=== PATIENT | female | born 1945 | race African-American/Black ===

== ENCOUNTER 2017-04-08 16:52 | Inpatient (IN) | payer MEDICARE, OTHER ==
--- NOTE | 2017-04-08 18:27 | ER Document Report ---
ED General - General Chief Complaint: Fall Stated Complaint: CRAMPING IN HANDS AND LEGS Time Seen by Provider: 04/08/17 18:05 Notes: 71-year-old lady with alcoholism and cirrhosis presents with a fall this morning when her legs gave out. This was acute. She did not hit her head or lose consciousness. She complains of cramping all over her body and cramping in her hands since this morning. She denies confusion but her sister says she has been more confused lately. Per nursing the patient drinks whiskey daily. TRAVEL OUTSIDE OF THE [place] IN LAST 30 DAYS: No - Related Data Allergies/Adverse Reactions: No Known Allergies Allergy (Verified 04/08/17 17:12) Past Medical History - Social History Smoking Status: Former Smoker Frequency of alcohol use: Heavy Drug Abuse: None Family History: None Patient has suicidal ideation: No Patient has homicidal ideation: No - Past Medical History Cardiac Medical History: Reports: Hx Hypertension Renal/ Medical History: Denies: Hx Peritoneal Dialysis GI Medical History: Reports: Hx Gastroesophageal Reflux Disease Past Surgical History: Reports: Hx Abdominal Surgery - partial stomach removal, Hx Cholecystectomy Review of Systems - Review of Systems Notes: REVIEW OF SYSTEMS GEN: Weakness ENT: Denies sore throat, nasal discharge, ear pain EYES: Denies blurry vision, eye pain, discharge CV: Denies chest pain, palpitations, edema RESP: Denies cough, shortness of breath, wheezing GI: Denies abdominal pain, nausea, vomiting, diarrhea MSK: Denies joint pain/swelling, edema, SKIN: Denies rash, skin lesions LYMPH: Denies swollen glands/lymph nodes NEURO: Confusion. Leg pain and hand cramping denies headache, focal weakness or numbness, dizziness PSYCH: Denies depression, suicidal or homicidal ideation PHYSICAL EXAMINATION General: Chronically ill-appearing. No acute distress, well-nourished Head: Atraumatic, normocephalic ENT: Mouth normal, oropharynx moist, no exudates or tonsillar enlargement Eyes: Conjunctiva normal, pupils equal, lids normal Neck: No JVD, supple, no guarding CVS: Normal rate, regular rhythm, no murmurs Resp: No resp distress, equal and normal breath sounds bilaterally GI: Mildly distended, soft, no tenderness to palpation, no rebound or guarding Ext: No deformities, no edema, normal range of motion in upper and lower ext Back: No CVA or midline TTP Skin: No rash, warm Lymphatic: No lymphadeopathy noted Neuro: Mild asterixis bilaterally. Awake, alert. Face symmetric. GCS 15. Physical Exam - Vital signs Vitals: Temp Pulse Resp BP Pulse Ox 99.2 F 97 20 90/58 L 100 04/08/17 17:06 04/08/17 17:06 04/08/17 17:06 04/08/17 17:06 04/08/17 17:06 Course - Re-evaluation Re-evalutation: 04/08/17 18:27 71-year-old lady with cirrhosis presents with mechanical fall from both legs giving out, generalized weakness confusion and muscle cramps. Differential diagnosis includes hypokalemia dehydration hyponatremia hepatic encephalopathy, less likely rhabdo. We will do full labs, hydrate, and reassess. 04/08/17 21:28 Labs were delayed. They show critical hypokalemia and hypomagnesemia and hypocalcemia. She will be hydrated, I will replete these 3 electrolytes. Patient's EKG does not show changes concerning for hyperkalemia but she will be maintained on a playground monitor. She was reassessed and is stable. She is hypotensive and I think this is her baseline. Her pressure on reassessment at approximately 10:20 PM is 124/74. She was discussed with hospitalist Dr. Cowart. Admit to obs telemetry. 04/08/17 22:21 04/08/17 22:21 - Vital Signs Vital signs: Temp Pulse Resp BP Pulse Ox 99.2 F 97 18 117/65 98 04/08/17 17:06 04/08/17 17:06 04/08/17 21:01 04/08/17 21:01 04/08/17 21:01 - Laboratory Result Diagrams: 04/08/17 19:00 04/08/17 20:21 Laboratory results interpreted by me: 04/08/17 04/08/17 04/08/17 19:00 19:00 20:21 RBC 3.14 L Hgb 10.7 L Hct 30.3 L MCH 34.2 H RDW 15.5 H Sodium 133.6 L Potassium 2.2 L* Chloride 83 L Carbon Dioxide 37 H BUN 6 L Creatinine 0.49 L Calcium 5.6 L* Magnesium 1.1 L* Total Bilirubin 2.6 H Direct Bilirubin 1.6 H AST 337 H ALT 84 H Alkaline Phosphatase 138 H Creatine Kinase 642 H Total Protein 5.5 L Albumin 3.1 L - EKG Interpretation by Me EKG shows normal: Sinus rhythm Rate: Normal Rhythm: NSR When compared to previous EKG there are: Previous EKG unavailable Additional EKG results interpreted by me: 04/08/17 18:52 QT interval slightly prolonged Critical Care Note - Critical Care Note Total time excluding time spent on procedures (mins): 32 Comments: The above patient is critically ill. Not including procedures, but including direct re-evaluations, speaking with patient and/or consultants, interpreting results, and documenting, I spent the total amount of minute listed listed above on critical care time Discharge - Discharge Clinical Impression: Hypokalemia, Hypomagnesemia, Hypocalcemia Condition: Good Disposition: ADMITTED OBSERVATION Admitting Provider: Hospitalist Unit Admitted: Telemetry
--- NOTE | 2017-04-08 18:46 | RADIOLOGY REPORT (SQ) ---
EXAM DESCRIPTION: CHEST SINGLE VIEW COMPLETED DATE/TIME: 04/08/2017 6:38 pm REASON FOR STUDY: liver dz, weakness COMPARISON: None. EXAM PARAMETERS: NUMBER OF VIEWS: One view. TECHNIQUE: Single frontal radiographic view of the chest acquired. RADIATION DOSE: NA LIMITATIONS: None. FINDINGS: LUNGS AND PLEURA: No opacities, masses or pneumothorax. No pleural effusion. MEDIASTINUM AND HILAR STRUCTURES: No masses. Contour normal. HEART AND VASCULAR STRUCTURES: Heart normal in size. Normal vasculature. BONES: No acute findings. HARDWARE: None in the chest. OTHER: No other significant finding. IMPRESSION: NO ACUTE RADIOGRAPHIC FINDING IN THE CHEST. TECHNICAL DOCUMENTATION: JOB ID: [id number] [employer]- All Rights Reserved
[2017-04-08 19:33] LABS: ABSOLUTE LYMPHOCYTES (AUTO) 0.8 10^3/uL (0.5-4.7); ABSOLUTE MONOCYTES (AUTO) 0.5 10^3/uL (0.1-1.4); BASOPHILS % (AUTO) 0.3 % (0-2); EOSINOPHILS % (AUTO) 0.1 % (0-6); HEMATOCRIT 30.3 % (36.0-47.0); HEMOGLOBIN 10.7 g/dL (12.0-15.5); LYMPHOCYTES % (AUTO) 15.5 % (13-45); MEAN CORPUSCULAR HEMOGLOBIN 34.2 pg (27.0-33.4); MEAN CORPUSCULAR HGB CONC 35.4 g/dL (32.0-36.0); MEAN CORPUSCULAR VOLUME 97 fl (80-97); MONOCYTES % (AUTO) 10.1 % (3-13); PLATELET COUNT 223 10^3/uL (150-450); RED BLOOD COUNT 3.14 10^6/uL (3.72-5.28); RED CELL DISTRIBUTION WIDTH 15.5 % (11.5-14.0); TOTAL CELLS COUNTED % (AUTO) 100 %; WHITE BLOOD COUNT 5.4 10^3/uL (4.0-10.5)
[2017-04-08 20:58] LABS: ALANINE AMINOTRANSFERASE 84 U/L (9-52); ALBUMIN 3.1 g/dL (3.5-5.0); ALKALINE PHOSPHATASE 138 U/L (38-126); ANION GAP 14 (5-19); ASPARTATE AMINO TRANSFERASE 337 U/L (14-36); BILIRUBIN,DIRECT 1.6 mg/dL (0.0-0.4); BILIRUBIN,TOTAL 2.6 mg/dL (0.2-1.3); BLOOD UREA NITROGEN 6 mg/dL (7-20); CARBON DIOXIDE 37 mmol/L (22-30); CHLORIDE 83 mmol/L (98-107); GLUCOSE 77 mg/dL (75-110); SODIUM 133.6 mmol/L (137-145); TOTAL PROTEIN 5.5 g/dL (6.3-8.2)
[2017-04-08 21:13] LABS: CALCIUM 5.6 mg/dL (8.4-10.2); MAGNESIUM 1.1 mg/dL (1.6-2.3); POTASSIUM 2.2 mmol/L (3.6-5.0)
[2017-04-08] MEDS ORDERED: CALCIUM GLUCONATE 1000 MG/10 ML INJ IV ONE (21:19)
[2017-04-08] MEDS: POTASSI CL 20 MEQ/50 ML RIDER 20 MEQ/50 ML RTUPB IV SCH ×2 (21:30→23:18)
[2017-04-08] MEDS: MAGNESIUM SULFATE/D5W 1 GM/100 ML RTUPB IV SCH ×2 (21:55→22:59)
[2017-04-08] MEDS ORDERED: LORAZEPAM INJ 2 MG/1 ML VIAL IV PRN (22:42)
[2017-04-08] MEDS ORDERED: PROMETHAZINE HCL 25 MG TABLET PO PRN (22:50)
[2017-04-08] MEDS: DIAZEPAM 5 MG TABLET PO SCH (22:58)
[2017-04-08] MEDS ORDERED: FOLIC ACID 1 MG TABLET PO ONE (23:00)
[2017-04-08] MEDS ORDERED: LANSOPRAZOLE 15 MG TAB.RAP.DR PO ONE (23:15)
--- NOTE | 2017-04-08 23:39 | PDOC H&P ---
History of Present Illness Admission Date/PCP: 04/08/17 21:32 BILLY HUERTA PA-C History of Present Illness: ALCIRA MURRAY is a 71 year old female with a PMH of ETOH abuse, cirrhosis of the liver, and gait disturbance who presents to the ED after a fall and inability to get up after this. Patient denies any LOC, hitting her head, chest pain, syncope, or shortness of breath. She reports she has been having muscle cramping for about 2 weeks. Patient reports upon evaluation of her gait disturbance in the past she was told that this was related to her alcohol abuse and was instructed to stop drinking and engage in physical therapy. She reports nausea but no vomiting. She reports she drinks about 1/5 of whiskey weekly. Initial evaluation of patient's laboratory studies reveal profound electrolyte derangements including a potassium of 2.2, magnesium of 1.1, and calcium corrected of 6.8. She is referred to the hospital service for observation and correction of her electrolyte derangements. Past Medical History Cardiac Medical History: Reports: Hypertension GI Medical History: Reports: Gastroesophageal Reflux Disease Psychiatric Medical History: Reports: Alcohol Dependency Past Surgical History Past Surgical History: Reports: Cholecystectomy, Other - Reports partial gastrectomy due to medical error Social History Smoking Status: Former Smoker Frequency of Alcohol Use: Heavy Hx Recreational Drug Use: No Hx Prescription Drug Abuse: No - Advance Directive Resuscitation Status: Full Code Surrogate healthcare decision maker:: Nelson Lynn, leisa Family History Family History: CAD, DM, Hypertension, Malignancy Parental Family History Reviewed: Yes Children Family History Reviewed: Yes Sibling(s) Family History Reviewed.: Yes Medication/Allergy Allergies/Adverse Reactions: No Known Allergies Allergy (Verified 04/08/17 17:12) Review of Systems Constitutional: PRESENT: weakness, weight loss - Patient feels she has had weight gain her sister feels she has had weight loss. ABSENT: chills, fever(s) , headache(s), weight gain Eyes: ABSENT: visual disturbances Ears: ABSENT: hearing changes Cardiovascular: ABSENT: chest pain, dyspnea on exertion, edema, orthropnea, palpitations Respiratory: ABSENT: cough, dyspnea, hemoptysis, sputum Gastrointestinal: PRESENT: nausea. ABSENT: abdominal pain, constipation, diarrhea, hematemesis, hematochezia, melena, vomiting Genitourinary: ABSENT: dysuria, hematuria Musculoskeletal: ABSENT: joint swelling Integumentary: ABSENT: rash, wounds Neurological: PRESENT: abnormal gait, frequent falls, weakness. ABSENT: abnormal speech, confusion, dizziness, focal weakness, syncope Psychiatric: ABSENT: anxiety, depression, homidical ideation, suicidal ideation Endocrine: ABSENT: cold intolerance, heat intolerance, polydipsia, polyuria Hematologic/Lymphatic: ABSENT: easy bleeding, easy bruising Physical Exam Vital Signs: Temp Pulse Resp BP Pulse Ox 99.2 F 97 18 117/65 98 04/08/17 17:06 04/08/17 17:06 04/08/17 21:01 04/08/17 21:01 04/08/17 21:01 General appearance: PRESENT: no acute distress, well-developed Head exam: PRESENT: atraumatic, normocephalic Eye exam: PRESENT: conjunctiva pink, EOMI, PERRLA, scleral icterus - Very mild Ear exam: PRESENT: normal external ear exam Mouth exam: PRESENT: moist, tongue midline Teeth exam: PRESENT: edentulous Neck exam: ABSENT: JVD, lymphadenopathy, thyromegaly, tracheal deviation Respiratory exam: PRESENT: clear to auscultation roxanna, symmetrical, unlabored. ABSENT: rales, rhonchi, tachypnea, wheezes Cardiovascular exam: PRESENT: RRR, +S1, +S2. ABSENT: diastolic murmur, rubs, systolic murmur Pulses: PRESENT: normal dorsalis pedis pul Vascular exam: PRESENT: normal capillary refill GI/Abdominal exam: PRESENT: normal bowel sounds, soft. ABSENT: distended, firm , guarding, mass, Brennan's sign, organolmegaly, rebound, rigid, tenderness Rectal exam: PRESENT: deferred Extremities exam: ABSENT: calf tenderness, clubbing, pedal edema Neurological exam: PRESENT: alert, awake, oriented to person, oriented to place , oriented to time, oriented to situation, CN II-XII grossly intact, motor sensory deficit - Bilateral lower extremities 3+/5 Psychiatric exam: PRESENT: appropriate affect, normal mood. ABSENT: homicidal ideation, suicidal ideation Skin exam: PRESENT: dry, intact, warm. ABSENT: cyanosis, rash Results Laboratory Results: 04/08/17 04/08/17 04/08/17 19:00 19:00 19:00 WBC 5.4 Hgb 10.7 L Plt Count 223 Sodium Cancelled Potassium Cancelled Chloride Cancelled Carbon Dioxide Cancelled BUN Cancelled Creatinine Cancelled Calcium Cancelled Magnesium Cancelled Total Bilirubin Cancelled Direct Bilirubin Cancelled AST Cancelled ALT Cancelled Alkaline Phosphatase Cancelled Ammonia 12.8 Creatine Kinase Total Protein Cancelled Albumin Cancelled 04/08/17 19:00 WBC Hgb Plt Count Sodium Potassium Chloride Carbon Dioxide BUN Creatinine Calcium Magnesium Total Bilirubin Direct Bilirubin AST ALT Alkaline Phosphatase Ammonia Creatine Kinase 642 H Total Protein Albumin Impressions: Chest X-Ray 04/08/17 18:05 IMPRESSION: NO ACUTE RADIOGRAPHIC FINDING IN THE CHEST. Assessment & Plan - Diagnosis (1) Hypokalemia Is this a current diagnosis for this admission?: Yes Plan: Monitor on telemetry with concern for arrhythmia. Replete and recheck Give both oral and IV replacement (2) Hypomagnesemia Is this a current diagnosis for this admission?: Yes Plan: Monitor on telemetry with concern for arrhythmia. Replete and recheck (3) Gait disturbance Is this a current diagnosis for this admission?: Yes Plan: At this time, in light of patient's multiple severe metabolic derangements it is difficult to assess her gait difficulty as I would anticipate even someone who is normal having difficulty with muscle weakness with these electrolytes. Likely related to Warnicke's or other neuropathy. Check TSH, vitamin B12, and have placed physical therapy consult. Advised patient to abstain from alcohol (4) Hyponatremia Is this a current diagnosis for this admission?: Yes Plan: Secondary to intravascular volume depletion (5) Alcohol abuse Is this a current diagnosis for this admission?: Yes Plan: Monitor patient on telemetry for arrhythmia. Check magnesium in a.m. Scheduled po Valium. PRN IV Ativan for withdrawal symptoms. Place on thiamine, folic acid. Monitor for worsening symptomatology (6) Alcoholic cirrhosis of liver without ascites Is this a current diagnosis for this admission?: Yes Plan: Patient has LFT derangements which are likely secondary to this (7) Hypertension Qualifiers: Hypertension type: unspecified Qualified Code(s): I10 - Essential (primary ) hypertension Is this a current diagnosis for this admission?: Yes Plan: Nifedipine twice daily (8) Hypocalcemia Is this a current diagnosis for this admission?: Yes Plan: Monitor on telemetry with concern for arrhythmia. Replete and recheck (9) Anemia Qualifiers: Anemia type: iron deficiency Iron deficiency anemia type: unspecified iron deficiency Qualified Code(s): D50.9 - Iron deficiency anemia, unspecified Is this a current diagnosis for this admission?: Yes Plan: Patient is taking oral iron at home. Will resume her oral iron. (10) Obesity (BMI 30.0-34.9) Is this a current diagnosis for this admission?: Yes (11) Dehydration Is this a current diagnosis for this admission?: Yes Plan: Likely secondary to poor p.o. intake, intake of alcohol, and use of diuretics and lactulose. Gently rehydrate - Time Time Spent: 30 to 50 Minutes Medications reviewed and adjusted accordingly: Yes Anticipated discharge: Home with Homehealth, Acute Rehab - Inpatient Certification Based on my medical assessment, after consideration of the patient's comorbidities, presenting symptoms, or acuity I expect that the services needed warrant INPATIENT care.: No I certify that my determination is in accordance with my understanding of Medicare's requirements for reasonable and necessary INPATIENT services [42 CFR 412.3e].: No Medical Necessity: Need For IV Fluids, Need For Continuous Telemetry Monitoring Post Hospital 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
[2017-04-08 23:58] LABS: CALCIUM 5.9 mg/dL (8.4-10.2)
[2017-04-09] MEDS: MAGNESIUM SULFATE/D5W 1 GM/100 ML RTUPB IV SCH ×3 (00:17→01:24)
[2017-04-09] MEDS: NORMAL SALINE 1000 ML 1,000 ML IV PRN ×2 (00:18→05:21)
[2017-04-09] MEDS: POTASSI CL 20 MEQ/50 ML RIDER 20 MEQ/50 ML RTUPB IV SCH ×3 (00:23→11:01)
[2017-04-09] MEDS: POTASSIUM CHLORIDE 10 MEQ TABLET.SA PO SCH ×4 (01:20→14:01)
[2017-04-09] MEDS: DIAZEPAM 5 MG TABLET PO SCH ×4 (05:19→23:30)
[2017-04-09] MEDS: LANSOPRAZOLE 15 MG TAB.RAP.DR PO SCH ×2 (05:19→22:27)
[2017-04-09] MEDS: HEPARIN SOD (PORCINE) 5,000 UNIT/ML 1 ML SYRINGE SUBCUT SCH ×3 (05:20→22:27)
[2017-04-09 06:00] LABS: BLOOD UREA NITROGEN 4 mg/dL (7-20); CHLORIDE 88 mmol/L (98-107); GLUCOSE 104 mg/dL (75-110)
[2017-04-09 06:08] LABS: ANION GAP 10 (5-19); CARBON DIOXIDE 38 mmol/L (22-30)
[2017-04-09 06:24] LABS: MAGNESIUM 2.5 mg/dL (1.6-2.3)
[2017-04-09 06:25] LABS: CALCIUM 5.7 mg/dL (8.4-10.2)
[2017-04-09 06:26] LABS: POTASSIUM 2.1 mmol/L (3.6-5.0)
[2017-04-09] MEDS ORDERED: NORMAL SALINE IV ONE (06:41)
[2017-04-09] MEDS ORDERED: POTASSIUM PHOS M BASIC D BASIC IV ONE (06:41)
[2017-04-09] MEDS ORDERED: CALCIUM GLUCONATE 1000 MG/10 ML INJ IV ONE (06:41)
--- NOTE | 2017-04-09 08:39 | EKG REPORT ---
SEVERITY:- ABNORMAL ECG - SINUS RHYTHM PROLONGED QT INTERVAL NONSPECIFIC ST-T CHANGES , DIFFUSE : Confirmed by: Ken Enamorado MD 09-Apr-2017 08:37:54
[2017-04-09] MEDS: FOLIC ACID 1 MG TABLET PO SCH (09:28)
[2017-04-09] MEDS: FUROSEMIDE 20 MG TABLET PO SCH (09:28)
[2017-04-09] MEDS: SPIRONOLACTONE 25 MG TABLET PO SCH (09:28)
[2017-04-09] MEDS: THIAMINE HCL 100 MG TABLET PO SCH (09:28)
[2017-04-09] MEDS: NIFEDIPINE 30 MG TAB.ER.24 PO SCH ×2 (09:29→22:27)
[2017-04-09] MEDS: FERROUS SULFATE LIQUID 300 MG/5 ML UDC PO SCH ×2 (09:29→17:29)
[2017-04-09] MEDS: CALCIUM CARBONATE 500 MG TABLET PO SCH ×2 (09:30→17:28)
[2017-04-09 17:42] LABS: ANION GAP 15 (5-19); BLOOD UREA NITROGEN 4 mg/dL (7-20); CARBON DIOXIDE 29 mmol/L (22-30); CHLORIDE 97 mmol/L (98-107); GLUCOSE 176 mg/dL (75-110); MAGNESIUM 1.6 mg/dL (1.6-2.3)
[2017-04-09 18:02] LABS: PHOSPHORUS 6.7 mg/dL (2.5-4.5); POTASSIUM 4.1 mmol/L (3.6-5.0)
[2017-04-09 18:08] LABS: CALCIUM 5.9 mg/dL (8.4-10.2)
--- NOTE | 2017-04-09 20:39 | PROGRESS NOTE E ---
Progress Note NAME: ALCIRA MURRAY : 1945 AGE: 71Y DATE: 04/09/2017 ROOM: 529 SUBJECTIVE: The patient is lying in bed. She states that she feels much better than when she came in. She denies any nausea, vomiting, diarrhea. No shortness of breath, dizziness, chest pain. No fevers, chills. The patient has been afebrile. Blood pressure has been in a good range. The patient has not voiced any other concerns at this time. BRIEF HISTORY: The patient is a 71-year-old -[place] female with a past medical history of alcohol abuse and subsequent hepatic cirrhosis, who still consumes about a fifth of liquor a week. The patient presented to the emergency department due to gait disturbance. The patient also noted muscle cramping; however, when labs were done, she was noted to have profound electrolyte derangements, including potassium of 2.2, magnesium of 1.1, a calcium that corrected out to 6.5, and the patient was referred to the hospitalist for admission and management. Additionally, the patient was found to have a PTH of 230. REVIEW OF SYSTEMS: The rest of the review of systems is negative. MEDICATIONS: Medications have been reviewed. OBJECTIVE: GENERAL: The patient is an 71-year-old -[place] female who is awake, alert and oriented to person, place, time, situation. She is verbal, conversational, does not appear to be in any acute distress. VITAL SIGNS: Temperature is 99.2, pulse 95, respirations 16, blood pressure is 99/54. Oxygen saturation 100% on room air. SKIN: Warm and dry, no rash. Not diaphoretic. HEENT: Pupils equal, round, reactive to light and accommodation. Conjunctivae pink. No evidence of JVD. CARDIOVASCULAR: Heart is regular. There is no murmur or rub. CHEST: Clear, symmetrical, unlabored. ABDOMEN: Soft, nontender, nondistended. BACK: No CVA tenderness or sacral edema. EXTREMITIES: No clubbing, cyanosis, edema. PSYCHIATRIC: Appropriate affect, pleasant mood. DIAGNOSTIC LABORATORY VALUES: Hematology obtained on 04/08/2017: WBCs are 11.0, hemoglobin is 12.0, hematocrit is 30.3, platelet count is 222,000. Chemistry obtained on 04/09/2017: Sodium is 136, potassium 2.1, chloride is 88, carbon dioxide 38, BUN 4, creatinine is 0.48 glucose 104, calcium is 5.7, magnesium 2.5, alk phos 0.9. PTH is 230. IMPRESSION AND PLAN: 1. Hypokalemia. We will continue to replace potassium, obtain a magnesium level and BNP now and follow. 2. Hyponatremia. Most likely, due to hypovolemia. We will repeat BNP and follow. 3. Hypocalcemia. This has been replaced. We will also add albumin to repeat labs. 4. Hyperparathyroidism. Currently awaiting Vitamin D level and will follow. 5. Gait disturbance. This appears to have gone on for quite a while but most likely is exacerbated by recent symptoms. We will consult PT for evaluation and follow. 6. Alcohol dependency, continuous. We will monitor for evidence of DTs and continue to supplement B vitamins. 7. Alcoholic liver cirrhosis. LFTs are elevated. Ammonia is in acceptable range. 8. Hypertension. Continue Procardia, which has been started. DISPOSITION: The patient is a DO NOT RESUSCITATE/DO NOT INTUBATE, and the patient has stated that she has advance directives and desires for a natural . Time spent on this followup including assessment, plan, physical examination, patient education, review of records is 35 minutes. DICTATING PHYSICIAN: GREG MONGE NP [id number] PHY#: [id number] ID: [id number] JOB#: [id number] ACCT: [id number] cc: > [facility]
[2017-04-10 04:55] LABS: HEMATOCRIT 27.7 % (36.0-47.0); HEMOGLOBIN 9.7 g/dL (12.0-15.5); MEAN CORPUSCULAR HEMOGLOBIN 34.6 pg (27.0-33.4); MEAN CORPUSCULAR VOLUME 99 fl (80-97); PLATELET COUNT 179 10^3/uL (150-450); RED BLOOD COUNT 2.79 10^6/uL (3.72-5.28); RED CELL DISTRIBUTION WIDTH 15.9 % (11.5-14.0); WHITE BLOOD COUNT 5.1 10^3/uL (4.0-10.5)
[2017-04-10 05:17] LABS: ALANINE AMINOTRANSFERASE 67 U/L (9-52); ALBUMIN 3.1 g/dL (3.5-5.0); ALKALINE PHOSPHATASE 131 U/L (38-126); ANION GAP 12 (5-19); ASPARTATE AMINO TRANSFERASE 179 U/L (14-36); BILIRUBIN,DIRECT 1.3 mg/dL (0.0-0.4); BILIRUBIN,TOTAL 1.7 mg/dL (0.2-1.3); BLOOD UREA NITROGEN 4 mg/dL (7-20); CARBON DIOXIDE 31 mmol/L (22-30); CHLORIDE 100 mmol/L (98-107); GLUCOSE 104 mg/dL (75-110); MAGNESIUM 1.4 mg/dL (1.6-2.3); POTASSIUM 3.7 mmol/L (3.6-5.0); SODIUM 142.7 mmol/L (137-145); TOTAL PROTEIN 5.6 g/dL (6.3-8.2)
[2017-04-10 05:19] LABS: PHOSPHORUS 2.8 mg/dL (2.5-4.5)
[2017-04-10] MEDS: HEPARIN SOD (PORCINE) 5,000 UNIT/ML 1 ML SYRINGE SUBCUT SCH ×3 (05:48→22:17)
[2017-04-10] MEDS: LANSOPRAZOLE 15 MG TAB.RAP.DR PO SCH ×2 (05:49→17:23)
[2017-04-10] MEDS: DIAZEPAM 5 MG TABLET PO SCH ×4 (05:49→23:13)
[2017-04-10] MEDS ORDERED: MAGNESIUM SULFATE/D5W 1 GM/100 ML RTUPB IV ONE (08:30)
[2017-04-10] MEDS: FOLIC ACID 1 MG TABLET PO SCH (09:20)
[2017-04-10] MEDS: SPIRONOLACTONE 25 MG TABLET PO SCH (09:20)
[2017-04-10] MEDS: THIAMINE HCL 100 MG TABLET PO SCH (09:21)
[2017-04-10] MEDS: CALCIUM CARBONATE 500 MG TABLET PO SCH ×2 (09:21→17:23)
[2017-04-10] MEDS: FERROUS SULFATE LIQUID 300 MG/5 ML UDC PO SCH ×2 (09:21→17:29)
[2017-04-10] MEDS: FUROSEMIDE 20 MG TABLET PO SCH (09:21)
[2017-04-10] MEDS: NIFEDIPINE 30 MG TAB.ER.24 PO SCH ×2 (09:21→22:17)
[2017-04-10] MEDS ORDERED: MAGNESIUM SULFATE/D5W 1 GM/100 ML RTUPB IV SCH (16:30)
--- NOTE | 2017-04-10 16:33 | PDOC PROGRESS REPORT ---
Subjective Progress Note for:: 04/10/17 Subjective:: patient states she is doing well. she has no concerns today. she has been walking around her room. she denies any nausea or vomiting. She has been eating and drinking well. She denies any fever or chills. Reason For Visit: ELECROLYTE DERRANGEMENT Physical Exam Vital Signs: Temp Pulse Resp BP Pulse Ox 97.8 F 65 18 147/61 H 99 04/10/17 15:00 04/10/17 15:00 04/10/17 15:00 04/10/17 15:00 04/10/17 15:00 Intake & Output 04/09/17 04/10/17 04/11/17 06:59 06:59 06:59 Intake Total 590 Balance 590 General appearance: PRESENT: no acute distress, cooperative Head exam: PRESENT: normocephalic Mouth exam: PRESENT: moist Throat exam: ABSENT: tonsillogmegaly Neck exam: PRESENT: full ROM. ABSENT: carotid bruit, JVD, tenderness, thyromegaly, tracheal deviation Respiratory exam: PRESENT: accessory muscle use, clear to auscultation roxanna. ABSENT: chest wall tenderness Cardiovascular exam: PRESENT: RRR. ABSENT: gallop, rubs, tachycardia Pulses: PRESENT: normal carotid pulses, +1 pedal pulses bilateral Vascular exam: PRESENT: normal capillary refill. ABSENT: pallor GI/Abdominal exam: PRESENT: normal bowel sounds, soft. ABSENT: ascites, distended, guarding, organolmegaly, tenderness Extremities exam: ABSENT: calf tenderness Musculoskeletal exam: PRESENT: ambulatory Neurological exam: PRESENT: alert, oriented to person, oriented to place, oriented to time, oriented to situation Psychiatric exam: ABSENT: agitated, anxious Skin exam: ABSENT: pallor, rash Results Laboratory Results: 04/10/17 04:11 04/10/17 04:11 04/09/17 04/10/17 04/10/17 17:10 04:11 04:11 WBC 5.1 RBC 2.79 L Hgb 9.7 L Hct 27.7 L MCV 99 H MCH 34.6 H MCHC 35.0 RDW 15.9 H Plt Count 179 Sodium 141.0 142.7 Potassium 4.1 D 3.7 Chloride 97 L 100 Carbon Dioxide 29 31 H Anion Gap 15 12 BUN 4 L 4 L Creatinine 0.53 0.49 L Est GFR ( Amer) > 60 > 60 Est GFR (Non-Af Amer) > 60 > 60 Glucose 176 H 104 Calcium 5.9 L* 6.0 L* Phosphorus 6.7 H D 2.8 D Magnesium 1.6 1.4 L Total Bilirubin 1.7 H AST 179 H ALT 67 H Alkaline Phosphatase 131 H Total Protein 5.6 L Albumin 3.0 L 3.1 L 04/10/17 15:29 WBC RBC Hgb Hct MCV MCH MCHC RDW Plt Count Sodium Potassium Chloride Carbon Dioxide Anion Gap BUN Creatinine Est GFR ( Amer) Est GFR (Non-Af Amer) Glucose Calcium Phosphorus Magnesium 1.5 L Total Bilirubin AST ALT Alkaline Phosphatase Total Protein Albumin Impressions: Chest X-Ray 04/08/17 18:05 IMPRESSION: NO ACUTE RADIOGRAPHIC FINDING IN THE CHEST. Assessment & Plan - Diagnosis (1) Alcohol abuse Is this a current diagnosis for this admission?: Yes Plan: needs to be watched for DT's, currently resting comfortably, continue telemetry (2) Alcoholic cirrhosis of liver without ascites Is this a current diagnosis for this admission?: Yes Plan: will monitor labs (3) Hypertension Qualifiers: Hypertension type: unspecified Qualified Code(s): I10 - Essential (primary ) hypertension Is this a current diagnosis for this admission?: Yes Plan: stable on current medications, will continue to monitor. (4) Hypocalcemia Is this a current diagnosis for this admission?: Yes Plan: has been slowly improving, currently on replacement. awaiting vitamin D level, secondary to cirrhosis and hyperparathyroidism. (5) Hypomagnesemia Is this a current diagnosis for this admission?: Yes Plan: given a dose IV with minimal effect. will give more doses through the evening and repeat labs in the morning. if electrolytes are better, could be discharged home in the morning. (6) Hyponatremia Is this a current diagnosis for this admission?: Yes Plan: resolved with replacement but decreasing with magnesium, will monitor - Time Time Spent with patient: 25-34 minutes Medications reviewed and adjusted accordingly: Yes Anticipated discharge: Home Within: within 24 hours
[2017-04-10] MEDS: MAGNESIUM SULFATE 1 GM/D5W 100 ML IV SCH ×2 (18:31→19:54)
[2017-04-11] MEDS: HEPARIN SOD (PORCINE) 5,000 UNIT/ML 1 ML SYRINGE SUBCUT SCH ×3 (05:15→22:58)
[2017-04-11] MEDS: LANSOPRAZOLE 15 MG TAB.RAP.DR PO SCH ×2 (05:15→17:57)
[2017-04-11] MEDS: DIAZEPAM 5 MG TABLET PO SCH ×4 (05:16→23:02)
[2017-04-11 05:30] LABS: ALANINE AMINOTRANSFERASE 63 U/L (9-52); ALBUMIN 2.7 g/dL (3.5-5.0); ALKALINE PHOSPHATASE 118 U/L (38-126); ANION GAP 14 (5-19); ASPARTATE AMINO TRANSFERASE 135 U/L (14-36); BILIRUBIN,DIRECT 1.3 mg/dL (0.0-0.4); BILIRUBIN,TOTAL 1.9 mg/dL (0.2-1.3); BLOOD UREA NITROGEN 6 mg/dL (7-20); CARBON DIOXIDE 26 mmol/L (22-30); CHLORIDE 103 mmol/L (98-107); GLUCOSE 77 mg/dL (75-110); MAGNESIUM 2.2 mg/dL (1.6-2.3); POTASSIUM 3.6 mmol/L (3.6-5.0); SODIUM 142.7 mmol/L (137-145); TOTAL PROTEIN 5.1 g/dL (6.3-8.2)
[2017-04-11 05:47] LABS: CALCIUM 6.1 mg/dL (8.4-10.2)
[2017-04-11] MEDS: CALCIUM CARBONATE 500 MG TABLET PO SCH ×2 (09:29→17:57)
[2017-04-11] MEDS: FOLIC ACID 1 MG TABLET PO SCH (09:29)
[2017-04-11] MEDS: FERROUS SULFATE LIQUID 300 MG/5 ML UDC PO SCH ×2 (09:29→17:57)
[2017-04-11] MEDS: THIAMINE HCL 100 MG TABLET PO SCH (09:29)
[2017-04-11] MEDS: NIFEDIPINE 30 MG TAB.ER.24 PO SCH (09:30)
[2017-04-11] MEDS: SPIRONOLACTONE 25 MG TABLET PO SCH (09:30)
[2017-04-11] MEDS: FUROSEMIDE 20 MG TABLET PO SCH (10:46)
--- NOTE | 2017-04-11 14:08 | PDOC PROGRESS REPORT ---
Subjective Progress Note for:: 04/11/17 Reason For Visit: ELECROLYTE DERRANGEMENT Physical Exam Vital Signs: Temp Pulse Resp BP Pulse Ox 97.4 F 89 16 98/59 L 99 04/11/17 11:47 04/11/17 11:47 04/11/17 11:47 04/11/17 11:47 04/11/17 11:47 Intake & Output 04/10/17 04/11/17 04/12/17 06:59 06:59 06:59 Intake Total 590 2407 Balance 590 2407 General appearance: PRESENT: no acute distress, well-developed, well-nourished Head exam: PRESENT: atraumatic, normocephalic Eye exam: PRESENT: conjunctiva pink, EOMI, PERRLA. ABSENT: scleral icterus Ear exam: PRESENT: normal external ear exam Mouth exam: PRESENT: moist, tongue midline Neck exam: ABSENT: carotid bruit, JVD, lymphadenopathy, thyromegaly Respiratory exam: PRESENT: clear to auscultation roxanna, symmetrical, unlabored. ABSENT: rales, rhonchi, wheezes Cardiovascular exam: PRESENT: RRR, +S1, +S2. ABSENT: diastolic murmur, rubs, systolic murmur Pulses: PRESENT: normal dorsalis pedis pul Vascular exam: PRESENT: normal capillary refill GI/Abdominal exam: PRESENT: normal bowel sounds, soft. ABSENT: distended, guarding, mass, organolmegaly, rebound, tenderness Rectal exam: PRESENT: deferred Extremities exam: PRESENT: full ROM. ABSENT: calf tenderness, clubbing, pedal edema Neurological exam: PRESENT: alert, awake, oriented to person, oriented to place , oriented to time, oriented to situation, CN II-XII grossly intact. ABSENT: motor sensory deficit Psychiatric exam: PRESENT: appropriate affect, normal mood. ABSENT: homicidal ideation, suicidal ideation Skin exam: PRESENT: dry, intact, warm. ABSENT: cyanosis, rash Results Laboratory Results: 04/10/17 04:11 04/11/17 04:05 04/10/17 04/11/17 04/11/17 15:29 04:05 10:23 Sodium 142.7 Potassium 3.6 Chloride 103 Carbon Dioxide 26 Anion Gap 14 BUN 6 L Creatinine 0.49 L Est GFR ( Amer) > 60 Est GFR (Non-Af Amer) > 60 Glucose 77 Calcium 6.1 L* Ionized Calcium Milla 0.90 L Magnesium 1.5 L 2.2 Total Bilirubin 1.9 H AST 135 H ALT 63 H Alkaline Phosphatase 118 Total Protein 5.1 L Albumin 2.7 L Impressions: Chest X-Ray 04/08/17 18:05 IMPRESSION: NO ACUTE RADIOGRAPHIC FINDING IN THE CHEST. Assessment & Plan - Diagnosis (1) Gait disturbance Is this a current diagnosis for this admission?: Yes Plan: Likely multifactorial secondary to alcohol dependence and electrolyte derangements. The patient has been placed on alcohol withdrawal protocol. We are monitoring electrolytes and replacing as needed. Will ask physical therapy to meet with the patient and make recommendations. Pt will benefit from continued [facility] ePT/OT or d/c to SNF for short term rehab. (2) Alcohol dependence, continuous Is this a current diagnosis for this admission?: Yes Plan: The patient admits to drinking 1/5 of vodka weekly which she states that she has made multiple attempts in the past to obtain sobriety. She states that she is interested in referrals to alcohol rehab facilities. She is on scheduled Valium q6 hours with Ativan prn. Will begin weaning valium today. Continue folic acid and thiamine supplementation. Fall, seizure, aspiration precautions. (3) Alcoholic cirrhosis of liver without ascites Is this a current diagnosis for this admission?: Yes Plan: Slight downward trend in AST; otherwise essentially unchanged. Will monitor. (4) Anemia Qualifiers: Anemia type: iron deficiency Iron deficiency anemia type: unspecified iron deficiency Qualified Code(s): D50.9 - Iron deficiency anemia, unspecified Is this a current diagnosis for this admission?: Yes Plan: Hgb stable. Will continue the patient's oral iron supplementation. (5) Hypertension Qualifiers: Hypertension type: unspecified Qualified Code(s): I10 - Essential (primary ) hypertension Is this a current diagnosis for this admission?: Yes Plan: Has been hypotensive this admission requiring nursing to home medications on multiple occasions. Will decrease Nifedipine and Furosemide today. (6) Hypocalcemia Is this a current diagnosis for this admission?: Yes Plan: Trending up gradually (5.6--> 5.9--> 5.7--> 5.9--> 6.0--> 6.1). Likely secondary to hypoalbuminemia and low vitamin D with poor nutritional intake. Will continue telemetry monitoring and daily chemistries. Will continue Os-Antonio. Will begin replacing Vitamin D. (7) Hypokalemia Is this a current diagnosis for this admission?: Yes Plan: Replete. Pt to remain on continuous cardiac telemetry. Will monitor with daily chemistries. (8) Hypomagnesemia Is this a current diagnosis for this admission?: Yes Plan: Replete. (9) Hyponatremia Is this a current diagnosis for this admission?: Yes Plan: Replete; likely secondary to dehydration. Pt now tolerating p.o. well. Will continue to monitor with daily chemistries. (10) Obesity (BMI 30.0-34.9) Is this a current diagnosis for this admission?: Yes (11) Increased PTH level Is this a current diagnosis for this admission?: Yes Plan: PTH found to be elevated to 230.7. Vitamin D 25 is <4.0. Concerning for hyperparathyroidism. Will begin replacing Vit D today; will require outpatient follow up. - Time Time Spent with patient: 25-34 minutes Medications reviewed and adjusted accordingly: Yes
[2017-04-12] MEDS: HEPARIN SOD (PORCINE) 5,000 UNIT/ML 1 ML SYRINGE SUBCUT SCH ×3 (05:38→21:39)
[2017-04-12] MEDS: LANSOPRAZOLE 15 MG TAB.RAP.DR PO SCH ×2 (05:39→17:59)
[2017-04-12] MEDS: DIAZEPAM 5 MG TABLET PO SCH ×4 (05:41→23:49)
[2017-04-12 07:46] LABS: HEMATOCRIT 27.3 % (36.0-47.0); HEMOGLOBIN 9.3 g/dL (12.0-15.5); MEAN CORPUSCULAR HEMOGLOBIN 34.1 pg (27.0-33.4); MEAN CORPUSCULAR HGB CONC 34.1 g/dL (32.0-36.0); MEAN CORPUSCULAR VOLUME 100 fl (80-97); PLATELET COUNT 231 10^3/uL (150-450); RED BLOOD COUNT 2.73 10^6/uL (3.72-5.28); RED CELL DISTRIBUTION WIDTH 16.5 % (11.5-14.0); WHITE BLOOD COUNT 3.9 10^3/uL (4.0-10.5)
[2017-04-12 08:08] LABS: ALANINE AMINOTRANSFERASE 58 U/L (9-52); ALKALINE PHOSPHATASE 122 U/L (38-126); ANION GAP 9 (5-19); ASPARTATE AMINO TRANSFERASE 101 U/L (14-36); BILIRUBIN,DIRECT 1.2 mg/dL (0.0-0.4); BILIRUBIN,TOTAL 1.8 mg/dL (0.2-1.3); BLOOD UREA NITROGEN 11 mg/dL (7-20); CARBON DIOXIDE 25 mmol/L (22-30); CHLORIDE 106 mmol/L (98-107); GLUCOSE 77 mg/dL (75-110); POTASSIUM 4.1 mmol/L (3.6-5.0); SODIUM 139.5 mmol/L (137-145); TOTAL PROTEIN 5.6 g/dL (6.3-8.2)
[2017-04-12 08:23] LABS: CALCIUM 6.2 mg/dL (8.4-10.2)
[2017-04-12] MEDS: NIFEDIPINE 30 MG TAB.ER.24 PO SCH (10:11)
[2017-04-12] MEDS: CHOLECALCIFEROL (D3) 1,000 UNIT TABLET PO SCH (10:11)
[2017-04-12] MEDS: SPIRONOLACTONE 25 MG TABLET PO SCH (10:12)
[2017-04-12] MEDS: THIAMINE HCL 100 MG TABLET PO SCH (10:12)
[2017-04-12] MEDS: CALCIUM CARBONATE 500 MG TABLET PO SCH ×2 (10:12→17:59)
[2017-04-12] MEDS: FOLIC ACID 1 MG TABLET PO SCH (10:12)
[2017-04-12] MEDS: FUROSEMIDE 20 MG TABLET PO SCH (10:13)
[2017-04-12] MEDS: FERROUS SULFATE LIQUID 300 MG/5 ML UDC PO SCH ×2 (10:20→17:59)
--- NOTE | 2017-04-12 16:03 | PDOC PROGRESS REPORT ---
Subjective Progress Note for:: 04/12/17 Subjective:: The patient is a 71-year-old female with a past medical history of EtOH abuse, cirrhosis, gait disturbance who was admitted on 04/08/17 with a complaint of gait disturbance leading to a fall. She was placed on alcohol withdrawal protocol with scheduled Valium. She was noted to have profound electrolyte derangements that have been corrected with the exception of calcium which remains low at 6.2 (corrected to 7.0). The patient is seen on morning rounds. She is found resting in bed comfortably on room air. Today she states that she is annoyed that everybody has been talking to her about her alcohol intake. She states that she is not interested in rehabilitation programs at this time. She declines to discuss SNF for short- term rehabilitation/physical therapy. She states that her gait is continued to improve and that she was able to walk about 250 feet with a walker and physical therapy yesterday. She has no new questions or concerns. Reason For Visit: ELECROLYTE DERRANGEMENT Physical Exam Vital Signs: Temp Pulse Resp BP Pulse Ox 98.7 F 92 16 122/55 L 100 04/12/17 11:32 04/12/17 11:32 04/12/17 11:32 04/12/17 11:32 04/12/17 11:32 Intake & Output 04/11/17 04/12/17 04/13/17 06:59 06:59 06:59 Intake Total 2407 1458 Output Total 750 Balance 2407 708 General appearance: PRESENT: no acute distress, well-developed, well-nourished Head exam: PRESENT: atraumatic, normocephalic Eye exam: PRESENT: conjunctiva pink, EOMI, PERRLA. ABSENT: scleral icterus Ear exam: PRESENT: normal external ear exam Mouth exam: PRESENT: moist, tongue midline Neck exam: ABSENT: carotid bruit, JVD, lymphadenopathy, thyromegaly Respiratory exam: PRESENT: clear to auscultation roxanna, symmetrical, unlabored. ABSENT: rales, rhonchi, wheezes Cardiovascular exam: PRESENT: RRR, +S1, +S2. ABSENT: diastolic murmur, rubs, systolic murmur Pulses: PRESENT: normal dorsalis pedis pul Vascular exam: PRESENT: normal capillary refill GI/Abdominal exam: PRESENT: normal bowel sounds, soft. ABSENT: distended, guarding, mass, organolmegaly, rebound, tenderness Rectal exam: PRESENT: deferred Extremities exam: PRESENT: full ROM. ABSENT: calf tenderness, clubbing, pedal edema Neurological exam: PRESENT: alert, awake, oriented to person, oriented to place , oriented to time, oriented to situation, abnormal gait, ataxia, CN II-XII grossly intact. ABSENT: motor sensory deficit Psychiatric exam: PRESENT: flat affect, normal mood. ABSENT: homicidal ideation , suicidal ideation Skin exam: PRESENT: dry, intact, warm. ABSENT: cyanosis, rash Results Laboratory Results: 04/12/17 06:17 04/12/17 06:17 04/12/17 04/12/17 06:17 06:17 WBC 3.9 L RBC 2.73 L Hgb 9.3 L Hct 27.3 L MCV 100 H MCH 34.1 H MCHC 34.1 RDW 16.5 H Plt Count 231 Sodium 139.5 Potassium 4.1 Chloride 106 Carbon Dioxide 25 Anion Gap 9 BUN 11 Creatinine 0.58 Est GFR ( Amer) > 60 Est GFR (Non-Af Amer) > 60 Glucose 77 Calcium 6.2 L* Total Bilirubin 1.8 H AST 101 H ALT 58 H Alkaline Phosphatase 122 Total Protein 5.6 L Albumin 3.0 L Impressions: Chest X-Ray 04/08/17 18:05 IMPRESSION: NO ACUTE RADIOGRAPHIC FINDING IN THE CHEST. Assessment & Plan - Diagnosis (1) Gait disturbance Is this a current diagnosis for this admission?: Yes Plan: Likely multifactorial secondary to alcohol dependence and electrolyte derangements. The patient has been placed on alcohol withdrawal protocol. We are monitoring electrolytes and replacing as needed. Will ask physical therapy to meet with the patient and make recommendations. Pt will benefit from continued home PT/OT or d/c to SNF for short term rehab. (2) Alcohol dependence, continuous Is this a current diagnosis for this admission?: Yes Plan: The patient admits to drinking 1/5 of vodka weekly which she states that she has made multiple attempts in the past to obtain sobriety. She states that she is interested in referrals to alcohol rehab facilities. She is on scheduled Valium q6 hours with Ativan prn. Did well with reduction of Valium yesterday; has not required prn Ativan. Will plan to decrease Valium dose again tomorrow. Continue folic acid and thiamine supplementation. Fall, seizure, aspiration precautions. (3) Alcoholic cirrhosis of liver without ascites Is this a current diagnosis for this admission?: Yes Plan: continued downward trend in LFTs. Will monitor. (4) Anemia Qualifiers: Anemia type: iron deficiency Iron deficiency anemia type: unspecified iron deficiency Qualified Code(s): D50.9 - Iron deficiency anemia, unspecified Is this a current diagnosis for this admission?: Yes Plan: Hgb stable. Will continue the patient's oral iron supplementation. (5) Hypertension Qualifiers: Hypertension type: unspecified Qualified Code(s): I10 - Essential (primary ) hypertension Is this a current diagnosis for this admission?: Yes Plan: Has been hypotensive this admission requiring nursing to hold medications on multiple occasions. Improved following dose reductions of Nifedipine and Furosemide today. Will monitor daily weights and I&Os to observe for fluid volume overload r/t furosemide adjustments. (6) Hypocalcemia Is this a current diagnosis for this admission?: Yes Plan: Trending up gradually. Calcium corrected for albumin is 7.0. Likely secondary to hypoalbuminemia and low vitamin D with poor nutritional intake. Will continue telemetry monitoring and daily chemistries. Will continue Os-[place]io. Continue replacing Vitamin D. (7) Hypokalemia Is this a current diagnosis for this admission?: Yes Plan: Replete. Pt to remain on continuous cardiac telemetry. Will monitor with daily chemistries. (8) Hypomagnesemia Is this a current diagnosis for this admission?: Yes Plan: Replete. (9) Hyponatremia Is this a current diagnosis for this admission?: Yes Plan: Replete; likely secondary to dehydration. Pt now tolerating p.o. well. Will continue to monitor with daily chemistries. (10) Obesity (BMI 30.0-34.9) Is this a current diagnosis for this admission?: Yes (11) Increased PTH level Is this a current diagnosis for this admission?: Yes Plan: PTH found to be elevated to 230.7. Vitamin D 25 is <4.0. Concerning for hyperparathyroidism. Will begin replacing Vit D today; will require outpatient follow up. - Time Time Spent with patient: 15-24 minutes Medications reviewed and adjusted accordingly: Yes
[2017-04-13] MEDS: HEPARIN SOD (PORCINE) 5,000 UNIT/ML 1 ML SYRINGE SUBCUT SCH ×3 (05:24→22:37)
[2017-04-13] MEDS: LANSOPRAZOLE 15 MG TAB.RAP.DR PO SCH ×2 (05:24→16:23)
[2017-04-13] MEDS: DIAZEPAM 5 MG TABLET PO SCH ×3 (05:24→18:12)
[2017-04-13 08:03] LABS: HEMATOCRIT 26.7 % (36.0-47.0); HEMOGLOBIN 9.2 g/dL (12.0-15.5); MEAN CORPUSCULAR HEMOGLOBIN 33.9 pg (27.0-33.4); MEAN CORPUSCULAR HGB CONC 34.3 g/dL (32.0-36.0); MEAN CORPUSCULAR VOLUME 99 fl (80-97); PLATELET COUNT 237 10^3/uL (150-450); RED BLOOD COUNT 2.71 10^6/uL (3.72-5.28); RED CELL DISTRIBUTION WIDTH 16.6 % (11.5-14.0); WHITE BLOOD COUNT 3.3 10^3/uL (4.0-10.5)
[2017-04-13 08:40] LABS: ANION GAP 10 (5-19); BLOOD UREA NITROGEN 10 mg/dL (7-20); CARBON DIOXIDE 21 mmol/L (22-30); CHLORIDE 111 mmol/L (98-107); GLUCOSE 72 mg/dL (75-110); POTASSIUM 4.1 mmol/L (3.6-5.0); SODIUM 141.5 mmol/L (137-145)
[2017-04-13 08:49] LABS: CALCIUM 6.5 mg/dL (8.4-10.2)
[2017-04-13 10:33] LABS: ALANINE AMINOTRANSFERASE 50 U/L (9-52); ALBUMIN 2.9 g/dL (3.5-5.0); ALKALINE PHOSPHATASE 121 U/L (38-126); ASPARTATE AMINO TRANSFERASE 95 U/L (14-36); BILIRUBIN,DIRECT 1.2 mg/dL (0.0-0.4); BILIRUBIN,TOTAL 1.5 mg/dL (0.2-1.3); TOTAL PROTEIN 5.7 g/dL (6.3-8.2)
[2017-04-13] MEDS: SPIRONOLACTONE 25 MG TABLET PO SCH (10:42)
[2017-04-13] MEDS: CHOLECALCIFEROL (D3) 1,000 UNIT TABLET PO SCH (10:42)
[2017-04-13] MEDS: FERROUS SULFATE LIQUID 300 MG/5 ML UDC PO SCH ×2 (10:42→18:12)
[2017-04-13] MEDS: FOLIC ACID 1 MG TABLET PO SCH (10:43)
[2017-04-13] MEDS: NIFEDIPINE 30 MG TAB.ER.24 PO SCH (10:43)
[2017-04-13] MEDS: FUROSEMIDE 20 MG TABLET PO SCH (10:43)
[2017-04-13] MEDS: THIAMINE HCL 100 MG TABLET PO SCH (10:43)
[2017-04-13] MEDS: CALCIUM CARBONATE 500 MG TABLET PO SCH ×2 (10:43→18:12)
--- NOTE | 2017-04-13 16:45 | PDOC PROGRESS REPORT ---
Subjective Progress Note for:: 04/13/17 Subjective:: The patient is a 71-year-old female with a past medical history of EtOH abuse, cirrhosis, gait disturbance who was admitted on 04/08/17 with a complaint of gait disturbance leading to a fall. She was placed on alcohol withdrawal protocol with scheduled Valium. She was noted to have profound electrolyte derangements that have been corrected with the exception of calcium which remains low at 6.5 (corrected to 7.38). The patient is seen on morning rounds. She states that she is feeling well today. She reports that she has been ambulating more and feels to have better coordination. She states that she has decided that she would like to go to SNF for short term rehab on discharge. She has no new questions or concerns. Reason For Visit: ELECROLYTE DERRANGEMENT Physical Exam Vital Signs: Temp Pulse Resp BP Pulse Ox 98.0 F 87 16 123/78 100 04/13/17 03:00 04/13/17 07:00 04/13/17 03:00 04/13/17 03:00 04/13/17 03:00 Intake & Output 04/12/17 04/13/17 04/14/17 06:59 06:59 06:59 Intake Total 1458 1360 Output Total 750 600 Balance 708 760 Weight 74.8 kg General appearance: PRESENT: no acute distress, well-developed, well-nourished, other Head exam: PRESENT: atraumatic, normocephalic Eye exam: PRESENT: conjunctiva pink, EOMI, PERRLA. ABSENT: scleral icterus Ear exam: PRESENT: normal external ear exam Mouth exam: PRESENT: moist, tongue midline Neck exam: ABSENT: carotid bruit, JVD, lymphadenopathy, thyromegaly Respiratory exam: PRESENT: clear to auscultation roxanna, symmetrical, unlabored. ABSENT: rales, rhonchi, wheezes Cardiovascular exam: PRESENT: RRR, +S1, +S2. ABSENT: diastolic murmur, rubs, systolic murmur Pulses: PRESENT: normal dorsalis pedis pul Vascular exam: PRESENT: normal capillary refill GI/Abdominal exam: PRESENT: normal bowel sounds, soft. ABSENT: distended, guarding, mass, organolmegaly, rebound, tenderness Rectal exam: PRESENT: deferred Extremities exam: PRESENT: full ROM. ABSENT: calf tenderness, clubbing, pedal edema Neurological exam: PRESENT: alert, awake, oriented to person, oriented to place , oriented to time, oriented to situation, CN II-XII grossly intact. ABSENT: motor sensory deficit Psychiatric exam: PRESENT: appropriate affect, normal mood. ABSENT: homicidal ideation, suicidal ideation Skin exam: PRESENT: dry, intact, warm. ABSENT: cyanosis, rash Results Laboratory Results: 04/13/17 06:17 04/13/17 06:17 04/13/17 04/13/17 04/13/17 06:17 06:17 06:17 WBC 3.3 L RBC 2.71 L Hgb 9.2 L Hct 26.7 L MCV 99 H MCH 33.9 H MCHC 34.3 RDW 16.6 H Plt Count 237 Sodium 141.5 Potassium 4.1 Chloride 111 H Carbon Dioxide 21 L Anion Gap 10 BUN 10 Creatinine 0.49 L Est GFR ( Amer) > 60 Est GFR (Non-Af Amer) > 60 Glucose 72 L Calcium 6.5 L* Total Bilirubin 1.5 H AST 95 H ALT 50 Alkaline Phosphatase 121 Total Protein 5.7 L Albumin 2.9 L Impressions: Chest X-Ray 04/08/17 18:05 IMPRESSION: NO ACUTE RADIOGRAPHIC FINDING IN THE CHEST. Assessment & Plan - Diagnosis (1) Gait disturbance Is this a current diagnosis for this admission?: Yes Plan: Likely multifactorial secondary to alcohol dependence and electrolyte derangements. The patient has been placed on alcohol withdrawal protocol. We are monitoring electrolytes and replacing as needed. Calcium is gradually improving; all others are replete. Will ask physical therapy to meet with the patient and make recommendations. Pt will benefit from d/c to SNF for short term rehab. (2) Alcohol dependence, continuous Is this a current diagnosis for this admission?: Yes Plan: The patient admits to drinking 1/5 of vodka weekly which she states that she has made multiple attempts in the past to obtain sobriety. She states that she is interested in referrals to alcohol rehab facilities. She is on scheduled Valium q6 hours with Ativan prn. Valium decreased again today. Continue folic acid and thiamine supplementation. Fall, seizure, aspiration precautions. (3) Alcoholic cirrhosis of liver without ascites Is this a current diagnosis for this admission?: Yes Plan: Continued downward trend in LFTs. Will monitor. (4) Anemia Qualifiers: Anemia type: iron deficiency Iron deficiency anemia type: unspecified iron deficiency Qualified Code(s): D50.9 - Iron deficiency anemia, unspecified Is this a current diagnosis for this admission?: Yes Plan: Hgb stable. Will continue the patient's oral iron supplementation. (5) Hypertension Qualifiers: Hypertension type: unspecified Qualified Code(s): I10 - Essential (primary ) hypertension Is this a current diagnosis for this admission?: Yes Plan: Has been hypotensive this admission requiring nursing to hold medications on multiple occasions. Improved following dose reductions of Nifedipine and Furosemide. Will monitor daily weights and I&Os to observe for fluid volume overload r/t furosemide adjustments. (6) Hypocalcemia Is this a current diagnosis for this admission?: Yes Plan: Trending up gradually. Calcium corrected for albumin is 7.38. Likely secondary to hypoalbuminemia and low vitamin D with poor nutritional intake. Will continue telemetry monitoring and daily chemistries. Will continue Os-[place]io. Continue replacing Vitamin D. (7) Hypokalemia Is this a current diagnosis for this admission?: Yes Plan: Replete. Pt to remain on continuous cardiac telemetry. Will monitor with daily chemistries. (8) Hypomagnesemia Is this a current diagnosis for this admission?: Yes Plan: Replete. (9) Hyponatremia Is this a current diagnosis for this admission?: Yes Plan: Replete; likely secondary to dehydration. Pt now tolerating p.o. well. Will continue to monitor with daily chemistries. (10) Obesity (BMI 30.0-34.9) Is this a current diagnosis for this admission?: Yes (11) Increased PTH level Is this a current diagnosis for this admission?: Yes Plan: PTH found to be elevated to 230.7. Vitamin D 25 is <4.0. Concerning for hyperparathyroidism. Will begin replacing Vit D today; will require outpatient follow up. - Time Time Spent with patient: 15-24 minutes Anticipated discharge: SNF - for short term rehab Within: within 48 hours
[2017-04-14] MEDS: DIAZEPAM 5 MG TABLET PO SCH ×3 (01:16→15:59)
[2017-04-14] MEDS: LANSOPRAZOLE 15 MG TAB.RAP.DR PO SCH ×2 (05:47→18:04)
[2017-04-14] MEDS: HEPARIN SOD (PORCINE) 5,000 UNIT/ML 1 ML SYRINGE SUBCUT SCH ×2 (05:47→15:59)
[2017-04-14 07:28] LABS: ALANINE AMINOTRANSFERASE 57 U/L (9-52); ALBUMIN 2.8 g/dL (3.5-5.0); ALKALINE PHOSPHATASE 123 U/L (38-126); ANION GAP 11 (5-19); ASPARTATE AMINO TRANSFERASE 94 U/L (14-36); BILIRUBIN,TOTAL 1.1 mg/dL (0.2-1.3); BLOOD UREA NITROGEN 11 mg/dL (7-20); CARBON DIOXIDE 20 mmol/L (22-30); CHLORIDE 113 mmol/L (98-107); GLUCOSE 73 mg/dL (75-110); POTASSIUM 4.2 mmol/L (3.6-5.0); SODIUM 143.6 mmol/L (137-145); TOTAL PROTEIN 5.6 g/dL (6.3-8.2)
[2017-04-14 07:38] LABS: CALCIUM 6.8 mg/dL (8.4-10.2)
[2017-04-14 10:38] VITALS: BP 122/61
[2017-04-14] MEDS: THIAMINE HCL 100 MG TABLET PO SCH (10:41)
[2017-04-14] MEDS: CHOLECALCIFEROL (D3) 1,000 UNIT TABLET PO SCH (10:41)
[2017-04-14] MEDS: FUROSEMIDE 20 MG TABLET PO SCH (10:42)
[2017-04-14] MEDS: NIFEDIPINE 30 MG TAB.ER.24 PO SCH (10:42)
[2017-04-14] MEDS: SPIRONOLACTONE 25 MG TABLET PO SCH (10:42)
[2017-04-14] MEDS: CALCIUM CARBONATE 500 MG TABLET PO SCH (10:43)
[2017-04-14] MEDS: FOLIC ACID 1 MG TABLET PO SCH (10:43)
[2017-04-14] MEDS: FERROUS SULFATE LIQUID 300 MG/5 ML UDC PO SCH (10:51)
--- NOTE | 2017-04-14 13:33 | PDOC DISCHARGE SUMMARY ---
General - Admit/Disc Date/PCP Admission Date/Primary Care Provider: 04/08/17 21:32 BILLY HUERTA PA-C Discharge Date: 04/14/17 - Discharge Diagnosis (1) Gait disturbance Is this a current diagnosis for this admission?: Yes Summary: Secondary to alcohol dependence with abuse. To be discharged to SNF for short term rehabilitation. (2) Alcohol dependence, continuous Is this a current diagnosis for this admission?: Yes Summary: The patient was placed on alcohol withdrawal protocols. She has been successfully weaned to Valium 2.5 mg every 6 hours as needed for anxiety/ agitation or withdrawal symptoms. She is provided thiamine and folic acid supplementation. She is encouraged to drinking alcohol, has met with our social human services assistants department and been provided with information on area resources. (3) Alcoholic cirrhosis of liver without ascites Is this a current diagnosis for this admission?: Yes Summary: LFTs are trending down. Pt is strongly encouraged to stop all alcohol intake. (4) Anemia Is this a current diagnosis for this admission?: Yes Summary: Chronic and stable. The patient is continued on ferrous sulfate. (5) Hypertension Is this a current diagnosis for this admission?: Yes Summary: The patient did have hypotensive episodes during the admission on multiple occasions. This resolved wth dose reduction of Nifedipine and Furosemide. Recommend daily weights to observe for fluid volume overload. (6) Hypocalcemia Is this a current diagnosis for this admission?: Yes Summary: Likely secondary to hypoalbuminemia, low vitamin D, and poor nutritional intake. Trending up gradually following Os-Antonio and Vitamin D3 supplementation; current corrected calcium is 7.76. Recommend follow up labs in 1 week. (7) Hypokalemia Is this a current diagnosis for this admission?: Yes Summary: Patient received both IV and oral potassium replacements. Her potassium has been stable several days. Recommend laboratory follow-up within 1 week. (8) Hypomagnesemia Is this a current diagnosis for this admission?: Yes Summary: Replete. (9) Hyponatremia Is this a current diagnosis for this admission?: Yes Summary: Secondary to dehydration; now resolved. (10) Increased PTH level Is this a current diagnosis for this admission?: Yes Summary: PTH was found to be elevated to 230.7. This is likely secondary to vitamin D deficiency which was noted to be less than 4.0. We have supplementing vitamin D. Recommend outpatient laboratory follow-up in 4-6 weeks. (11) Obesity (BMI 30.0-34.9) Is this a current diagnosis for this admission?: Yes - Additional Information Resuscitation Status: Do Not Resuscitate Discharge Diet: Regular Discharge Activity: Activity As Tolerated, Balance Activity w/Rest, Slowly Increase Activity, Weigh Daily Prescriptions: Calcium Carbonate [Os-Antonio 500 mg Tablet (Oyster-Shell)] 500 mg PO BID #60 tablet Cholecalciferol (Vitamin D3) [Vitamin D3 1000 Unit Tablet] 5,000 unit PO DAILY # 120 tablet Diazepam [Valium 5 mg Tablet] 2.5 mg PO Q6HP PRN #10 tablet PRN Reason: Anxiety/Agitation Ferrous Sulfate [Ferrous Sulfate Liquid 300 mg/5 ml Udcup] 300 mg PO BID #60 udc Folic Acid [Folvite 1 mg Tablet] 1 mg PO DAILY #30 tablet Furosemide [Lasix 20 mg Tablet] 10 mg PO DAILY #30 tablet Lansoprazole [Prevacid 15 mg Odt Tablet] 15 mg PO BID@0600,1700 #60 tab.rap. Nifedipine [Procardia XL 30 mg Tablet] 30 mg PO DAILY #30 tab.er.24 Spironolactone [Aldactone 25 mg Tablet] 25 mg PO DAILY #30 tablet Thiamine HCl [Thiamine 100 mg Tablet] 100 mg PO DAILY #30 tablet Home Medications: Calcium Carbonate [Os-Antonio 500 mg Tablet (Oyster-Shell)] 500 mg PO BID #60 tablet 04/14/17 Cholecalciferol (Vitamin D3) [Vitamin D3 1000 Unit Tablet] 5,000 unit PO DAILY # 120 tablet 04/14/17 Diazepam [Valium 5 mg Tablet] 2.5 mg PO Q6HP PRN #10 tablet 04/14/17 Ferrous Sulfate [Ferrous Sulfate Liquid 300 mg/5 ml Udcup] 300 mg PO BID #60 udc 04/14/17 Folic Acid [Folvite 1 mg Tablet] 1 mg PO DAILY #30 tablet 04/14/17 Furosemide [Lasix 20 mg Tablet] 10 mg PO DAILY #30 tablet 04/14/17 Lansoprazole [Prevacid 15 mg Odt Tablet] 15 mg PO BID@0600,1700 #60 tab.rap 04/14/17 Nifedipine [Procardia XL 30 mg Tablet] 30 mg PO DAILY #30 tab.er.24 04/14/17 Spironolactone [Aldactone 25 mg Tablet] 25 mg PO DAILY #30 tablet 04/14/17 Thiamine HCl [Thiamine 100 mg Tablet] 100 mg PO DAILY #30 tablet 04/14/17 History of Present Illness History of Present Illness: Per H&P by Dr. Cowart: ALCIRA MURRAY is a 71 year old female with a past medical history of EtOH abuse, cirrhosis of the liver, and gait disturbance who presented to the ED after a fall and inability to get up after this. Patient denies any LOC, hitting her head, chest pain, syncope, or shortness of breath. Reports that she has been having muscle cramping for about 2 weeks. Patient reports upon evaluation of her gait disturbance in the past she was told that this was related to her alcohol abuse and was instructed to stop drinking and engage in physical therapy. She reports nausea but no vomiting. She reports she drinks about 1/5 of whiskey weekly. Initial evaluation of patient's laboratory studies revealed profound electrolyte derangements including a potassium of 2.2, magnesium of 1.1, and calcium corrected of 6.8. She is referred to the hospitalist service for observation and correction of her electrolyte derangements. Hospital Course Hospital Course: The patient was admitted to the floor on continuous cardiac telemetry. Electolytes were monitored and replaced as necessary. She has been started on Os-Antonio, Vitamin D supplementation, Folic acid, and thiamine to be continued after discharge. The patient was placed on scheduled Valium with as needed Ativan for withdrawal precautions. She was successfully weaned to as needed low-dose valium only. The patient has met with physical therapy who recommended SNF for short term rehabilitation. On day of discharge, she is in stable condition. She is discharged to [facility] for short term rehabilitation. Physical Exam Vital Signs: Temp Pulse Resp BP Pulse Ox 97.3 F 86 20 122/61 100 04/14/17 07:41 04/14/17 07:41 04/14/17 07:41 04/14/17 07:41 04/14/17 07:41 Intake & Output 04/13/17 04/14/17 04/15/17 06:59 06:59 06:59 Intake Total 1360 720 Output Total 600 1000 Balance 760 -280 Weight 74.8 kg 74.8 kg General appearance: PRESENT: no acute distress, well-developed, well-nourished Head exam: PRESENT: atraumatic, normocephalic Eye exam: PRESENT: conjunctiva pink, EOMI, PERRLA. ABSENT: scleral icterus Ear exam: PRESENT: normal external ear exam Mouth exam: PRESENT: moist, tongue midline Neck exam: ABSENT: carotid bruit, JVD, lymphadenopathy, thyromegaly Respiratory exam: PRESENT: clear to auscultation roxanna, symmetrical, unlabored. ABSENT: rales, rhonchi, wheezes Cardiovascular exam: PRESENT: RRR, +S1, +S2. ABSENT: diastolic murmur, rubs, systolic murmur Pulses: PRESENT: normal dorsalis pedis pul Vascular exam: PRESENT: normal capillary refill GI/Abdominal exam: PRESENT: normal bowel sounds, soft. ABSENT: distended, guarding, mass, organolmegaly, rebound, tenderness Rectal exam: PRESENT: deferred Extremities exam: PRESENT: full ROM. ABSENT: calf tenderness, clubbing, pedal edema Neurological exam: PRESENT: alert, awake, oriented to person, oriented to place , oriented to time, oriented to situation, CN II-XII grossly intact. ABSENT: motor sensory deficit Psychiatric exam: PRESENT: appropriate affect, normal mood. ABSENT: homicidal ideation, suicidal ideation Skin exam: PRESENT: dry, intact, warm. ABSENT: cyanosis, rash Results Laboratory Results: 04/13/17 06:17 04/14/17 06:30 04/14/17 06:30 Sodium 143.6 Potassium 4.2 Chloride 113 H Carbon Dioxide 20 L Anion Gap 11 BUN 11 Creatinine 0.50 L Est GFR ( Amer) > 60 Est GFR (Non-Af Amer) > 60 Glucose 73 L Calcium 6.8 L* Total Bilirubin 1.1 AST 94 H ALT 57 H Alkaline Phosphatase 123 Total Protein 5.6 L Albumin 2.8 L Impressions: Chest X-Ray 04/08/17 18:05 IMPRESSION: NO ACUTE RADIOGRAPHIC FINDING IN THE CHEST. Qualifiers PATEINT BEING DISCHARGED WITH ANY OF THE FOLLOWING DIAGNOSIS?: No Plan Discharge Plan: Discharge to [facility] for short-term rehab. Time Spent: Less than 30 Minutes
== END 2017-04-14 18:13 | DRG 641 ==
LOC: ER 16:52 → OBSVTOIN 21:32 → EH 21:32 → 5 04-09 19:40
PROVIDERS: ADMIT Family Medicine; ATTEND Family Medicine
DX: E87.6 Hypokalemia (principal); F10.20 Alcohol dependence, uncomplicated; K70.30 Alcoholic cirrhosis of liver without ascites; E21.3 Hyperparathyroidism, unspecified; Z66 Do not resuscitate; E86.0 Dehydration; R25.2 Cramp and spasm; I10 Essential (primary) hypertension; K21.9 Gastro-esophageal reflux disease without esophagitis; D50.9 Iron deficiency anemia, unspecified; R26.89 Other abnormalities of gait and mobility; Y90.9 Presence of alcohol in blood, level not specified; Z87.891 Personal history of nicotine dependence; Z90.3 Acquired absence of stomach [part of]
CPT/HCPCS: 36415; 71045; 80048; 80053; 80076; 82040; 82140; 82306; 82310; 82330; 82550; 82607; 82652; 82962; 83735; 83970; 84100; 84443; 85025; 85027; 93005; 93010; 99291; G0378; G8978-GP; G8979-GP; J0610; J1644; J3475; J3480; J3490; J7030

== ENCOUNTER 2017-09-11 10:29 | Inpatient (IN) | payer MEDICARE, OTHER ==
[2017-09-11 11:15] LABS: ABSOLUTE LYMPHOCYTES (AUTO) 0.4 10^3/uL (0.5-4.7); ABSOLUTE MONOCYTES (AUTO) 0.4 10^3/uL (0.1-1.4); ABSOLUTE NEUT (AUTO) 4.7 10^3/uL (1.7-8.2); BASOPHILS % (AUTO) 0.4 % (0-2); HEMATOCRIT 20.9 % (36.0-47.0); LYMPHOCYTES % (AUTO) 7.4 % (13-45); MEAN CORPUSCULAR HEMOGLOBIN 36.4 pg (27.0-33.4); MEAN CORPUSCULAR HGB CONC 34.9 g/dL (32.0-36.0); MEAN CORPUSCULAR VOLUME 104 fl (80-97); MONOCYTES % (AUTO) 7.7 % (3-13); PLATELET COUNT 216 10^3/uL (150-450); RED BLOOD COUNT 2.01 10^6/uL (3.72-5.28); RED CELL DISTRIBUTION WIDTH 14.7 % (11.5-14.0); SEGMENTED NEUTROPHILS % (AUTO) 84.5 % (42-78); TOTAL CELLS COUNTED % (AUTO) 100 %; WHITE BLOOD COUNT 5.6 10^3/uL (4.0-10.5)
[2017-09-11 11:17] LABS: HEMOGLOBIN 7.3 g/dL (12.0-15.5)
[2017-09-11 11:34] LABS: ALANINE AMINOTRANSFERASE 60 U/L (9-52); ALBUMIN 2.3 g/dL (3.5-5.0); ALKALINE PHOSPHATASE 116 U/L (38-126); ANION GAP 15 (5-19); ASPARTATE AMINO TRANSFERASE 123 U/L (14-36); BILIRUBIN,DIRECT 6.4 mg/dL (0.0-0.4); BILIRUBIN,TOTAL 7.9 mg/dL (0.2-1.3); BLOOD UREA NITROGEN 4 mg/dL (7-20); CARBON DIOXIDE 32 mmol/L (22-30); CHLORIDE 78 mmol/L (98-107); GLUCOSE 97 mg/dL (75-110); LIPASE 37.8 U/L (23-300); SODIUM 124.6 mmol/L (137-145); TOTAL PROTEIN 5.2 g/dL (6.3-8.2)
[2017-09-11] MEDS ORDERED: METOCLOPRAMIDE HCL INJ/PF 10 MG/2 ML SDV IV ONE (11:37)
--- NOTE | 2017-09-11 11:42 | ER Document Report ---
ED GI/ - General Mode of Arrival: Ambulatory Information source: Patient TRAVEL OUTSIDE OF THE [place] IN LAST 30 DAYS: No <JOE ABDALLA - Last Filed: 09/11/17 13:45> <TANIYA IGLL - Last Filed: 09/11/17 16:59> - General Chief Complaint: Abdominal Pain >50 Stated Complaint: ABDOMINAL PAIN Time Seen by Provider: 09/11/17 11:20 Notes: Patient is a 72-year-old female with HTN presents to the emergency department via complaining of nausea and abdominal pain onset 10 days ago, worsening over the weekend. Patient states she has been very nauseous although she has not been able to vomit further stating she has only been dry heaving. She also states she noticed some dark blood in her stool and on the toilet paper when she wiped. She denies any constipation. Upon EMS arrival patient was hypotensive. They proceeded to administer a 250 Bolus and Zofran. (JOE ABDALLA) - Related Data Allergies/Adverse Reactions: No Known Allergies Allergy (Verified 04/08/17 17:12) Past Medical History - General Information source: Patient - Social History Smoking Status: Former Smoker - quit in [place], smoked for 4 years Frequency of alcohol use: Heavy - states she drinks everyday Drug Abuse: None Family History: CAD, DM, Hypertension, Malignancy Patient has suicidal ideation: No Patient has homicidal ideation: No - Past Medical History Cardiac Medical History: Reports: Hx Hypertension GI Medical History: Reports: Hx Gastroesophageal Reflux Disease Past Surgical History: Reports: Hx Abdominal Surgery, Hx Cholecystectomy, Other - Reports partial gastrectomy due to medical error <JOE ABDALLA - Last Filed: 09/11/17 13:45> Review of Systems - Review of Systems Constitutional: No symptoms reported EENT: No symptoms reported Cardiovascular: No symptoms reported Respiratory: No symptoms reported Gastrointestinal: See HPI, Abdominal pain, Nausea Genitourinary: No symptoms reported Female Genitourinary: No symptoms reported Musculoskeletal: No symptoms reported Skin: No symptoms reported Hematologic/Lymphatic: No symptoms reported Neurological/Psychological: No symptoms reported -: Yes All other systems reviewed and negative <JOE ABDALLA - Last Filed: 09/11/17 13:45> Physical Exam - General General appearance: Appears well, Alert In distress: None - HEENT Head: Normocephalic, Atraumatic Eyes: Normal Conjunctiva: Normal Extraocular movements intact: Yes Pupils: PERRL Neck: Normal - Respiratory Respiratory status: No respiratory distress Chest status: Nontender Breath sounds: Normal Chest palpation: Normal - Cardiovascular Rhythm: Regular Heart sounds: Normal auscultation Murmur: No Gallop: None auscultated - Abdominal Inspection: Normal Distension: No distension Bowel sounds: Normal Tenderness: Tender - Diffuse tenderness to palpation, Guarding - Difffuse Organomegaly: No organomegaly - Rectal Tenderness: No Stool: Other - No stool in vault, mucous residual sent to the lab. Hemorrhoids: External, Other - Anal stenosis - Back Back: Normal - Extremities General upper extremity: Normal ROM General lower extremity: Normal ROM - Neurological Neuro grossly intact: Yes Cognition: Normal Orientation: AAOx4 [place] Coma Scale Eye Opening: Spontaneous Lisa Coma Scale Verbal: Oriented Lisa Coma Scale Motor: Obeys Commands Lisa Coma Scale Total: 15 Speech: Normal - Psychological Associated symptoms: Normal affect, Normal mood - Skin Skin Temperature: Warm Skin Moisture: Dry Skin Color: Normal <JOE ABDALLA - Last Filed: 09/11/17 13:45> - Vital signs Vitals: Resp Pulse Ox 13 100 09/11/17 10:40 09/11/17 10:40 Course - Laboratory Result Diagrams: 09/11/17 10:43 09/11/17 10:43 <JOE ABDALLA - Last Filed: 09/11/17 13:45> - Laboratory Result Diagrams: 09/11/17 10:43 09/11/17 10:43 - Diagnostic Test Radiology reviewed: Image reviewed - Ultrasound shows the patient has had her gallbladder removed in the past. She has a cirrhotic enlarged liver. The kidneys are normal in appearance., Reports reviewed - acute abdominal series does not show any abnormalities, there is a lot of intestinal gas. - EKG Interpretation by Me EKG shows normal: Sinus rhythm, [place], Intervals, QRS Complexes. abnormal: ST-T Waves - Borderline anterolateral T abnormalities Rate: Normal - 95 Rhythm: NSR - Consults Dr. Plasencia Time consulted: 12:30 Consulted provider: will come to ER <TANIYA GILL - Last Filed: 09/11/17 16:59> - Vital Signs Vital signs: Temp Pulse Resp BP Pulse Ox 98.4 F 12 132/84 H 100 09/11/17 10:44 09/11/17 14:01 09/11/17 15:01 09/11/17 14:56 - Laboratory Laboratory results interpreted by me: 09/11/17 09/11/17 09/11/17 10:43 10:43 10:43 RBC 2.01 L Hgb 7.3 L Hct 20.9 L MCV 104 H MCH 36.4 H RDW 14.7 H Seg Neutrophils % 84.5 H Lymphocytes % 7.4 L Absolute Lymphocytes 0.4 L Retic Count (auto) Absolute Retic PT Sodium 124.6 L Potassium 2.0 L* Chloride 78 L Carbon Dioxide 32 H BUN 4 L Calcium 6.0 L* Ionized Calcium Milla Magnesium 1.2 L* Total Bilirubin 7.9 H Direct Bilirubin 6.4 H AST 123 H ALT 60 H Total Protein 5.2 L Albumin 2.3 L Crossmatch 09/11/17 09/11/17 09/11/17 10:43 10:43 12:10 RBC Hgb Hct MCV MCH RDW Seg Neutrophils % Lymphocytes % Absolute Lymphocytes Retic Count (auto) 5.46 H Absolute Retic 0.123 H PT 22.1 H Sodium Potassium Chloride Carbon Dioxide BUN Calcium Ionized Calcium Milla Magnesium Total Bilirubin Direct Bilirubin AST ALT Total Protein Albumin Crossmatch See Detail 09/11/17 12:55 RBC Hgb Hct MCV MCH RDW Seg Neutrophils % Lymphocytes % Absolute Lymphocytes Retic Count (auto) Absolute Retic PT Sodium Potassium Chloride Carbon Dioxide BUN Calcium Ionized Calcium Milla 0.76 L Magnesium Total Bilirubin Direct Bilirubin AST ALT Total Protein Albumin Crossmatch Critical Care Note - Critical Care Note Total time excluding time spent on procedures (mins): 40 <TANIYA GILL - Last Filed: 09/11/17 16:59> Discharge <JOE ABDALLA - Last Filed: 09/11/17 13:45> - Discharge Admitting Provider: Hospitalist Unit Admitted: [facility]U <TANIYA GILL - Last Filed: 09/11/17 16:59> - Discharge Clinical Impression: Hypokalemia, Alcohol dependence, continuous, Hypomagnesemia, Hyponatremia, Alcohol abuse, Hypocalcemia, Alcoholic cirrhosis of liver without ascites, Heme positive stool, ICU Anemia Qualifiers: Anemia type: unspecified type Qualified Code(s): D64.9 - Anemia, unspecified Abdominal pain Qualifiers: Abdominal location: generalized Qualified Code(s): R10.84 - Generalized abdominal pain Nausea and vomiting Qualifiers: Vomiting type: unspecified Vomiting Intractability: non-intractable Qualified Code(s): R11.2 - Nausea with vomiting, unspecified Condition: Good Disposition: ADMITTED INPATIENT Scribe Attestation: 09/11/17 12:28 I personally performed the services described in the documentation, reviewed and edited the documentation which was dictated to the scribe in my presence, and it accurately records my words and actions. (TANIYA GILL) Scribe Documentation - Scribe Written by Scribe:: Leyla Barry, 09/11/2017 11:53 acting as scribe for :: Leigh <JOE ABDALLA - Last Filed: 09/11/17 13:45>
[2017-09-11 11:53] LABS: INTERNATIONAL RATION (INR) 1.84; PROTHROMBIN TIME 22.1 SEC (11.4-15.4)
[2017-09-11] MEDS ORDERED: POTASSIUM CHLORIDE 20 MEQ/15 ML UDCUP PO ONE (11:57)
[2017-09-11] MEDS ORDERED: THIAMINE HCL 100 MG, FOLIC ACID 1 MG in NORMAL SALINE 250 ML IV ONE (12:02)
[2017-09-11] MEDS ORDERED: CALCIUM GLUCONATE 1000 MG/10 ML INJ IV ONE (12:02)
[2017-09-11] MEDS ORDERED: MAGNESIUM SULFATE INJ 8 MEQ/2 ML IV ONE (12:27)
[2017-09-11] MEDS ORDERED: MAGNESIUM SULFATE/D5W 1 GM/100 ML RTUPB IV ONE (12:47)
--- NOTE | 2017-09-11 13:03 | RADIOLOGY REPORT (SQ) ---
EXAM DESCRIPTION: ACUTE ABDOMEN SERIES COMPLETED DATE/TIME: 09/11/2017 12:16 pm REASON FOR STUDY: N,V, dark stool, abd pain, anemia COMPARISON: None. NUMBER OF VIEWS: Three views. TECHNIQUE: Frontal chest, supine abdomen and upright/decubitus abdomen radiographic images acquired. LIMITATIONS: None. FINDINGS: CHEST: Lungs clear of infiltrates. FREE AIR: None. No abnormal gas collections. BOWEL GAS PATTERN: Nonobstructive pattern. No dilated loops or air fluid levels. CALCIFICATIONS: No suspicious calcifications. HARDWARE: None in the abdomen. SOFT TISSUES: No gross mass or suggestion of organomegaly. BONES: No acute fracture. No worrisome bone lesions. OTHER: No other significant finding. IMPRESSION: NO RADIOGRAPHIC EVIDENCE FOR ACUTE ABDOMINAL DISEASE. TECHNICAL DOCUMENTATION: JOB ID: [id number] [employer]- All Rights Reserved Reading location - IP/workstation name: [email or web address]
[2017-09-11 13:17] LABS: ALCOHOL < 10 mg/dL (NONE DETECTED)
[2017-09-11] MEDS ORDERED: MAGNESIUM HYDROXIDE SUSP 30 ML UDCUP PO PRN (14:26)
[2017-09-11] MEDS ORDERED: ONDANSETRON HCL INJ/PF 4 MG/2 ML SDV IV PRN (14:26)
[2017-09-11] MEDS ORDERED: NORMAL SALINE 250 ML IV PRN ×2 (14:38)
[2017-09-11 15:06] LABS: ABSOLUTE RETICS # 0.123 10^6/uL (0.028-0.122); RETICULOCYTE COUNT (AUTO) 5.46 % (0.66-2.85)
[2017-09-11 15:25] LABS: IRON(TIBC) 51.7 ug/dL (37-170)
--- NOTE | 2017-09-11 15:37 | EKG REPORT ---
SEVERITY:- BORDERLINE ECG - VENTRICULAR PREMATURE COMPLEX BORDERLINE T ABNORMALITIES, ANT-LAT LEADS SINUS RHYTHM : Confirmed by: Marcy Angeles MD 11-Sep-2017 15:36:17
[2017-09-11 16:29] LABS: FOLATE 5.29 ng/mL (>2.76)
--- NOTE | 2017-09-11 16:37 | RADIOLOGY REPORT (SQ) ---
EXAM DESCRIPTION: U/S ABDOMEN COMPLETE W/O DOP COMPLETED DATE/TIME: 09/11/2017 4:23 pm REASON FOR STUDY: ETOH abuse, liver disease COMPARISON: None. TECHNIQUE: Dynamic and static grayscale images acquired of the abdomen and recorded on PACS. Vadimo mali selected color Doppler and spectral images recorded. LIMITATIONS: None. FINDINGS: PANCREAS: Not well seen. LIVER: Send 19.2 cm. Increased echogenicity. Small cyst in the left lobe. LIVER VASCULATURE: Normal directional flow of the main portal vein and hepatic veins. GALLBLADDER: Gallstone(s). No pericholecystic fluid. No wall thickening. ULTRASOUND-DETECTED PURDY'S SIGN: Not applicable. INTRAHEPATIC DUCTS AND COMMON DUCT: CBD and intrahepatic ducts normal caliber. No filling defects. INFERIOR VENA CAVA: Patent AORTA: No aneurysm proximally. The mid and distal aorta were obscured by gas. RIGHT KIDNEY: Normal size, 9.9 cm. Normal echogenicity. No solid or suspicious masses. No hydr onephrosis. No calcifications. LEFT KIDNEY: Normal size, 10.4 cm. Normal echogenicity. No solid or suspicious masses. No hydr onephrosis. No calcifications. SPLEEN: Normal size, 8.1 cm. No masses. PERITONEAL AND PLEURAL SPACES: No ascites or effusions. OTHER: No other significant finding. IMPRESSION: Hepatomegaly with fatty infiltration of the liver. TECHNICAL DOCUMENTATION: JOB ID: [id number] [employer]- All Rights Reserved Reading location - IP/workstation name: [email or web address]
[2017-09-11 16:57] LABS: APPEARANCE,URINE CLEAR; BILIRUBIN,URINE NEGATIVE (NEGATIVE); COLOR,URINE AMBER; GLUCOSE, URINE NEGATIVE (NEGATIVE); KETONES,URINE NEGATIVE (NEGATIVE); LEUKOCYTE ESTERASE,URINE NEGATIVE (NEGATIVE); NITRITE,URINE NEGATIVE (NEGATIVE); PROTEIN,URINE NEGATIVE (NEGATIVE); URINE SPECIFIC GRAVITY 1.003
[2017-09-11 17:16] LABS: URINE SODIUM 9 mmol/L (30-90)
[2017-09-11 17:23] LABS: URINE AMPHETAMINES SCREEN NEGATIVE; URINE BARBITURATES SCREEN NEGATIVE; URINE BENZODIAZEPINES SCREEN NEGATIVE; URINE COCAINE SCREEN NEGATIVE; URINE MARIJUANA (THC) SCREEN NEGATIVE; URINE METHADONE SCREEN NEGATIVE; URINE PHENCYCLIDINE SCREEN NEGATIVE
[2017-09-11 17:30] LABS: OSMOLALITY,URINE 98 mOsm/kg (300-900)
[2017-09-11 18:54] LABS: ANION GAP 12 (5-19); BLOOD UREA NITROGEN 4 mg/dL (7-20); CARBON DIOXIDE 35 mmol/L (22-30); CHLORIDE 81 mmol/L (98-107); GLUCOSE 115 mg/dL (75-110)
[2017-09-11 19:03] LABS: CALCIUM 6.6 mg/dL (8.4-10.2); POTASSIUM 2.3 mmol/L (3.6-5.0)
--- NOTE | 2017-09-11 19:50 | PDOC H&P ---
History of Present Illness Admission Date/PCP: 09/11/17 14:22 BILLY HUERTA PA-C Patient complains of: Abdominal Pain, weakness, unable to walk x 1 week History of Present Illness: ALCIRA MURRAY is a 72 year old female This patient presents emergency room with complaints of nausea and vomiting and abdominal pain has been slowly getting worse over the last week or so. Patient says that intake has been pretty poor however she has managed to continue to drink [place] mist Liquor. She also complains of poor urine output since yesterday. She denies any vomiting, hematemesis, fever, dysuria or back pain. She did complain of dark stool and occult blood done in the emergency room was positive. She was also found to be hyponatremic and with several electrolyte abnormalities. She drinks about a pint of liquor every week. Her last drink was yesterday. Her sodium was 124 on arrival to the emergency room. Patient was admitted here back in March with almost the same symptoms although not as anemic then as she was now. She is not sure if she has had an EGD done before but states she had a colonoscopy done possibly this year which was negative. Sonogram done today reveals a proximal megaly with hepatomegaly with fatty infiltration of the liver. Past Medical History Cardiac Medical History: Reports: Hypertension GI Medical History: Reports: Gastroesophageal Reflux Disease Past Surgical History Past Surgical History: Reports: Cholecystectomy, Other - Reports partial gastrectomy due to medical error Social History Information Source: Patient Smoking Status: Former Smoker - quit in [facility], smoked for 4 years Frequency of Alcohol Use: Heavy Hx Recreational Drug Use: No Drugs: None Hx Prescription Drug Abuse: No Family History Family History: CAD, DM, Hypertension, Malignancy Parental Family History Reviewed: No Children Family History Reviewed: No Sibling(s) Family History Reviewed.: Unknown Medication/Allergy Home Medications: Ferrous Sulfate [Ferrous Sulfate 220 mg/5 ml Elix 60 ml] 5 ml PO Q48H 09/11/17 Furosemide [Lasix 20 mg Tablet] 20 mg PO Q48H 09/11/17 Nifedipine [Procardia XL 60 mg Tablet] 60 mg PO DAILY 09/11/17 Omeprazole 20 mg PO DAILY 09/11/17 Potassium Chloride [K-Tab ER] 8 meq PO DAILY 09/11/17 Spironolactone [Aldactone] 25 mg PO BID 09/11/17 Thiamine HCl [Vitamin B-1] 100 mg PO DAILY 09/11/17 Allergies/Adverse Reactions: No Known Allergies Allergy (Verified 04/08/17 17:12) Physical Exam Vital Signs: Temp Pulse Resp BP Pulse Ox 98.2 F 94 22 H 128/72 H 99 09/11/17 18:30 09/11/17 18:30 09/11/17 18:30 09/11/17 18:30 09/11/17 18:30 Intake & Output 09/10/17 09/11/17 09/12/17 06:59 06:59 06:59 Intake Total 0 Balance 0 General appearance: PRESENT: no acute distress, cooperative, other - Facial fullness with mild parotid gland enlargement Head exam: PRESENT: atraumatic Eye exam: PRESENT: PERRLA Mouth exam: PRESENT: dry mucosa Neck exam: ABSENT: carotid bruit, JVD, lymphadenopathy, thyromegaly Respiratory exam: PRESENT: clear to auscultation roxanna. ABSENT: rales, rhonchi, wheezes Cardiovascular exam: PRESENT: RRR. ABSENT: diastolic murmur, rubs, systolic murmur GI/Abdominal exam: PRESENT: normal bowel sounds, tenderness. ABSENT: ascites, mass Rectal exam: PRESENT: black stool, heme (+) stool Extremities exam: PRESENT: full ROM, +1 edema. ABSENT: calf tenderness, clubbing, pedal edema Musculoskeletal exam: PRESENT: normal inspection Neurological exam: PRESENT: alert, awake, oriented to person, oriented to place , oriented to situation Psychiatric exam: PRESENT: appropriate affect Results Laboratory Results: 09/11/17 18:15 09/11/17 09/11/17 09/11/17 16:44 16:44 18:15 Sodium 128.0 L Potassium 2.3 L* Chloride 81 L Carbon Dioxide 35 H Anion Gap 12 BUN 4 L Creatinine 0.58 Est GFR ( Amer) > 60 Est GFR (Non-Af Amer) > 60 Glucose 115 H Calcium 6.6 L* Magnesium 1.6 Urine Color LEO Urine Appearance CLEAR Urine pH 6.0 Ur Specific [place] 1.003 Urine Protein NEGATIVE Urine Glucose (UA) NEGATIVE Urine Ketones NEGATIVE Urine Blood MODERATE H Urine Nitrite NEGATIVE Ur Leukocyte Esterase NEGATIVE Urine WBC (Auto) 4 Urine Osmolality 98 L Impressions: Abdomen Ultrasound 09/11/17 00:00 IMPRESSION: Hepatomegaly with fatty infiltration of the liver. Acute Abdomen Series 09/11/17 11:38 IMPRESSION: NO RADIOGRAPHIC EVIDENCE FOR ACUTE ABDOMINAL DISEASE. Assessment & Plan - Diagnosis (1) Hyponatremia Is this a current diagnosis for this admission?: Yes Plan: This is likely secondary to be able to wu with the low solute load and continue alcohol intake. Patient is fortunately asymptomatic with no neurological compromise. Urine for osmolality as well as urine sodium and chloride will be obtained. Current recommendations is for patient to be n.p.o. for at least 24 hours and for fluid restriction. She will be getting some fluids from her blood transfusion but at this time I will make n.p.o. and will not give any IV fluids. Will repeat sodium in a few hours. Recommended goal of replacement is about 12 mEq in 24 hours and 18 mEq in about 36 hours as this will help to prevent ODS (2) Abdominal pain Qualifiers: Abdominal location: generalized Qualified Code(s): R10.84 - Generalized abdominal pain Is this a current diagnosis for this admission?: Yes Plan: Sonogram was done which surprisingly did not show anything significant except for hepatomegaly and fatty liver. Patient bilirubin is noted to be pretty high at 7.9, had that he was back in March. Will continue to trend and monitor (3) Alcohol dependence, continuous Is this a current diagnosis for this admission?: Yes Plan: She will be placed on oral thiamine Multivite. She will be ordered benzodiazepines as needed and will watch out for withdrawal symptoms She has been counseled on the need to abstain from alcohol from now on (4) Hypocalcemia Is this a current diagnosis for this admission?: Yes Plan: She received intravenous calcium in the ED (5) Hypokalemia Is this a current diagnosis for this admission?: Yes Plan: Pretty severe. Patient was on Aldactone and Lasix at home and so it is not clear why her potassium was low. She received oral supplementation and potassium level will be repeated (6) Hypomagnesemia Is this a current diagnosis for this admission?: Yes Plan: This has been replaced likely nutritional (7) Malnutrition Qualifiers: Malnutrition type: protein-calorie malnutrition Is this a current diagnosis for this admission?: Yes Plan: Urinary to alcohol abuse. Patient will need nutritional evaluation and gentle refeeding to prevent refeeding alkalosis (8) Anemia Qualifiers: Anemia type: unspecified type Qualified Code(s): D64.9 - Anemia, unspecified Is this a current diagnosis for this admission?: Yes Plan: Patient had hemoglobin of 7.3 on presentation. There really appears to be no evidence of acute blood loss although her stool guaiac was positive she was subsequently need an endoscopy which could be done as outpatient if warranted but right now she was transfused with 2 units of packed red blood cells. Follow -up H&H will be obtained (9) Alcoholic liver disease, unspecified Is this a current diagnosis for this admission?: Yes Plan: Surprisingly sonogram shows no evidence of cirrhosis however other clinical evidence suggests that patient may have cirrhosis. INR is 1.84 I will suggest a GI consultation when a unhairing machine operator is available as there is none currently at the time of this dictation - Time Time Spent: 50 to 70 Minutes Medications reviewed and adjusted accordingly: Yes Anticipated discharge: Home Within: within 72 hours - Inpatient Certification Based on my medical assessment, after consideration of the patient's comorbidities, presenting symptoms, or acuity I expect that the services needed warrant INPATIENT care.: Yes Medical Necessity: Significant Comorbidiites Make Outpatient Treatment Too Risky , Risk of Complication if Not Cared For in Hospital
[2017-09-11] MEDS ORDERED: LORAZEPAM INJ 2 MG/1 ML VIAL IV PRN (19:51)
[2017-09-11] MEDS: FAMOTIDINE 20 MG TABLET PO SCH (22:20)
[2017-09-11] MEDS: POTASSIUM CHLORIDE 20 MEQ/50 ML RTU IV SCH (22:20)
[2017-09-12] MEDS: POTASSIUM CHLORIDE 20 MEQ/50 ML RTU IV SCH ×3 (00:32→05:40)
[2017-09-12 05:07] LABS: HEMATOCRIT 27.8 % (36.0-47.0); MEAN CORPUSCULAR HGB CONC 36.3 g/dL (32.0-36.0); PLATELET COUNT 167 10^3/uL (150-450); RED BLOOD COUNT 2.85 10^6/uL (3.72-5.28); RED CELL DISTRIBUTION WIDTH 18.7 % (11.5-14.0); WHITE BLOOD COUNT 4.9 10^3/uL (4.0-10.5)
[2017-09-12 05:08] LABS: INTERNATIONAL RATION (INR) 1.76; PROTHROMBIN TIME 21.4 SEC (11.4-15.4)
[2017-09-12 05:37] LABS: MEAN CORPUSCULAR VOLUME 97 fl (80-97)
[2017-09-12] MEDS: FAMOTIDINE 20 MG TABLET PO SCH ×2 (05:40→17:30)
[2017-09-12 05:43] LABS: MEAN CORPUSCULAR HEMOGLOBIN 35.3 pg (27.0-33.4)
[2017-09-12 05:59] LABS: ANION GAP 8 (5-19); BLOOD UREA NITROGEN 3 mg/dL (7-20); CARBON DIOXIDE 36 mmol/L (22-30); CHLORIDE 91 mmol/L (98-107); GLUCOSE 90 mg/dL (75-110); LIPASE 48.7 U/L (23-300); PHOSPHORUS 2.2 mg/dL (2.5-4.5); POTASSIUM 3.2 mmol/L (3.6-5.0); SODIUM 135.2 mmol/L (137-145)
[2017-09-12 06:22] LABS: CALCIUM 6.7 mg/dL (8.4-10.2)
[2017-09-12 06:54] LABS: HEMOGLOBIN 10.1 g/dL (12.0-15.5)
[2017-09-12] MEDS ORDERED: (PENDING PHARMACY ID) (Thiamine Hcl [Vitamin B-1] 100 MG) PO SCH (10:00)
[2017-09-12] MEDS: MAGNESIUM OXIDE 400 MG TABLET PO SCH (10:09)
[2017-09-12] MEDS: THIAMINE HCL 100 MG TABLET PO SCH (10:09)
--- NOTE | 2017-09-12 18:59 | PDOC PROGRESS REPORT ---
Subjective Progress Note for:: 09/12/17 Subjective:: No adverse events overnight. No new complaints. She said her appetite has not been very good. She says she feels better than she did when she came in after getting some fluids electrolytes. She says she drinks about a pint of liquor a day and has done so for several months. She says she does not remember last time she tried to quit drinking for more than a day. Her last drink was 2 days ago. Reason For Visit: HYPONATREMIA,ANEMIA,ELECTROLYTE ABNORMALITIES, Physical Exam Vital Signs: Temp Pulse Resp BP Pulse Ox 98.9 F 93 16 130/72 H 98 09/12/17 15:21 09/12/17 15:21 09/12/17 15:21 09/12/17 15:21 09/12/17 15:21 Intake & Output 09/11/17 09/12/17 09/13/17 06:59 06:59 06:59 Intake Total 1790 0 Output Total 1450 1700 Balance 340 -1700 Weight 61.9 kg General appearance: PRESENT: no acute distress, cooperative, disheveled, thin Head exam: PRESENT: atraumatic, normocephalic Respiratory exam: PRESENT: clear to auscultation roxanna, symmetrical, unlabored. ABSENT: accessory muscle use, chest wall tenderness, crackles, rales, rhonchi, wheezes Cardiovascular exam: PRESENT: RRR. ABSENT: clicks, diastolic murmur, gallop, rubs, systolic murmur Vascular exam: PRESENT: normal capillary refill GI/Abdominal exam: PRESENT: normal bowel sounds, soft. ABSENT: ascites, guarding, rebound, tenderness Extremities exam: ABSENT: joint swelling, pedal edema Musculoskeletal exam: PRESENT: full ROM, normal inspection. ABSENT: deformity Neurological exam: PRESENT: alert, oriented to person, oriented to place, oriented to time, oriented to situation Psychiatric exam: PRESENT: appropriate affect, normal mood Skin exam: PRESENT: dry, warm Results Laboratory Results: 09/12/17 04:47 09/12/17 04:47 09/11/17 09/12/17 09/12/17 18:15 04:47 04:47 WBC RBC Hgb Hct MCV MCH MCHC RDW Plt Count Sodium 128.0 L 135.2 L Potassium 2.3 L* 3.2 L Chloride 81 L 91 L Carbon Dioxide 35 H 36 H Anion Gap 12 8 BUN 4 L 3 L Creatinine 0.58 0.54 Est GFR ( Amer) > 60 > 60 Est GFR (Non-Af Amer) > 60 > 60 Glucose 115 H 90 Calcium 6.6 L* 6.7 L* Phosphorus 2.2 L Magnesium 1.6 Lipase 48.7 TSH 3.76 09/12/17 04:47 WBC 4.9 RBC 2.85 L Hgb 10.1 L D Hct 27.8 L MCV 97 D MCH 35.3 H MCHC 36.3 H RDW 18.7 H Plt Count 167 Sodium Potassium Chloride Carbon Dioxide Anion Gap BUN Creatinine Est GFR ( Amer) Est GFR (Non-Af Amer) Glucose Calcium Phosphorus Magnesium Lipase TSH Impressions: Abdomen Ultrasound 09/11/17 00:00 IMPRESSION: Hepatomegaly with fatty infiltration of the liver. Acute Abdomen Series 09/11/17 11:38 IMPRESSION: NO RADIOGRAPHIC EVIDENCE FOR ACUTE ABDOMINAL DISEASE. Assessment & Plan - Diagnosis (1) Hypocalcemia Is this a current diagnosis for this admission?: Yes Plan: Replacing IV (2) Hypokalemia Is this a current diagnosis for this admission?: Yes Plan: Replacing IV (3) Hypomagnesemia Is this a current diagnosis for this admission?: Yes Plan: Resolved (4) Hyponatremia Is this a current diagnosis for this admission?: Yes Plan: Resolved (5) Anemia Qualifiers: Anemia type: unspecified type Qualified Code(s): D64.9 - Anemia, unspecified Is this a current diagnosis for this admission?: Yes Plan: She denies any recent bleeding. She denies any hematemesis hematochezia or melena. She has not had a colonoscopy or an endoscopy and recent memory. Her blood counts have been stable and I do not think she needs one now, but she will probably need to see GI at some point in the future because of her anemia and she will likely require an EGD, especially to rule out esophageal varices. If she starts to show any signs of bleeding here we will go ahead and get her scoped. (6) Alcoholic cirrhosis of liver without ascites Is this a current diagnosis for this admission?: Yes Plan: Monitor (7) Alcohol dependence, continuous Is this a current diagnosis for this admission?: Yes Plan: Vitamin supplementation. Watching closely for development of DTs. - Time Time Spent with patient: 25-34 minutes Medications reviewed and adjusted accordingly: Yes Anticipated discharge: Home
[2017-09-13] MEDS: FAMOTIDINE 20 MG TABLET PO SCH ×2 (05:21→17:04)
[2017-09-13 07:57] LABS: ANION GAP 8 (5-19); BLOOD UREA NITROGEN 3 mg/dL (7-20); CARBON DIOXIDE 33 mmol/L (22-30); CHLORIDE 95 mmol/L (98-107); GLUCOSE 84 mg/dL (75-110); POTASSIUM 3.4 mmol/L (3.6-5.0); SODIUM 135.5 mmol/L (137-145)
[2017-09-13] MEDS ORDERED: CALCIUM GLUCONATE 1000 MG/10 ML INJ IV ONE (08:43)
[2017-09-13] MEDS: MAGNESIUM OXIDE 400 MG TABLET PO SCH (09:05)
[2017-09-13] MEDS: THIAMINE HCL 100 MG TABLET PO SCH (09:06)
[2017-09-13 09:20] LABS: PHOSPHORUS 1.6 mg/dL (2.5-4.5)
[2017-09-13] MEDS ORDERED: CALCIUM GLUCONATE 2,000 MG in DEXTROSE 5%-WATER 100 ML IV ONE (09:30)
[2017-09-13] MEDS ORDERED: POTASSIUM CHLORIDE 10 MEQ CAPSULE.ER PO ONE (09:30)
[2017-09-13] MEDS: PHOSPHORUS #1 250 MG TABLET PO SCH ×3 (12:09→22:21)
[2017-09-13] MEDS ORDERED: LORAZEPAM INJ 2 MG/1 ML VIAL IV PRN (18:23)
--- NOTE | 2017-09-13 19:16 | PDOC PROGRESS REPORT ---
Subjective Progress Note for:: 09/13/17 Subjective:: No adverse events overnight. No new complaints. Vital signs been stable. She denies any tremors or hallucinations. She said she slept fairly well last night. Appetite has not been very good. Physical therapy came to see her today and she sent them away and saying that she just did not feel very good. Reason For Visit: HYPONATREMIA,ANEMIA,ELECTROLYTE ABNORMALITIES, Physical Exam Vital Signs: Temp Pulse Resp BP Pulse Ox 99.4 F 91 16 136/74 H 100 09/13/17 16:24 09/13/17 16:24 09/13/17 16:24 09/13/17 16:24 09/13/17 16:24 Intake & Output 09/12/17 09/13/17 09/14/17 06:59 06:59 06:59 Intake Total 1790 507 754 Output Total 1450 2100 300 Balance 340 -1593 454 Weight 61.9 kg 62.4 kg General appearance: PRESENT: no acute distress, thin, well-developed Head exam: PRESENT: atraumatic, normocephalic Respiratory exam: PRESENT: clear to auscultation roxanna. ABSENT: rales, rhonchi, wheezes Cardiovascular exam: PRESENT: tachycardia - Borderline. ABSENT: diastolic murmur, rubs, systolic murmur GI/Abdominal exam: PRESENT: normal bowel sounds, soft. ABSENT: distended, guarding, mass, organolmegaly, rebound, tenderness Extremities exam: PRESENT: full ROM. ABSENT: calf tenderness, clubbing, pedal edema Neurological exam: PRESENT: alert, awake, oriented to person, oriented to place , oriented to time, other - No tremors Results Laboratory Results: 09/12/17 04:47 09/13/17 06:11 09/13/17 09/13/17 06:11 06:11 Sodium 135.5 L Potassium 3.4 L Chloride 95 L Carbon Dioxide 33 H Anion Gap 8 BUN 3 L Creatinine 0.56 Est GFR ( Amer) > 60 Est GFR (Non-Af Amer) > 60 Glucose 84 Calcium 7.0 L* Phosphorus 1.6 L Magnesium 1.7 Impressions: Abdomen Ultrasound 09/11/17 00:00 IMPRESSION: Hepatomegaly with fatty infiltration of the liver. Acute Abdomen Series 09/11/17 11:38 IMPRESSION: NO RADIOGRAPHIC EVIDENCE FOR ACUTE ABDOMINAL DISEASE. Assessment & Plan - Diagnosis (1) Hypocalcemia Is this a current diagnosis for this admission?: Yes Plan: Replacing IV (2) Hypokalemia Is this a current diagnosis for this admission?: Yes Plan: Replace with p.o. supplement. This nearly completely resolved. (3) Hypomagnesemia Is this a current diagnosis for this admission?: Yes Plan: Resolved (4) Hyponatremia Is this a current diagnosis for this admission?: Yes Plan: Resolved (5) Anemia Qualifiers: Anemia type: unspecified type Qualified Code(s): D64.9 - Anemia, unspecified Is this a current diagnosis for this admission?: Yes Plan: Blood counts remain stable. If she remains stable here will probably set her up with a gastroenterology appointment as an outpatient. (6) Alcoholic cirrhosis of liver without ascites Is this a current diagnosis for this admission?: Yes Plan: Monitor (7) Alcohol dependence, continuous Is this a current diagnosis for this admission?: Yes Plan: She looks fine visual inspection, but she is getting a little tachycardic. Worried about her starting to develop withdrawal symptoms. We will watch her closely and give as needed Ativan if she shows any symptoms. - Time Time Spent with patient: 25-34 minutes Anticipated discharge: Home
[2017-09-14] MEDS: FAMOTIDINE 20 MG TABLET PO SCH ×2 (05:49→17:07)
[2017-09-14 06:43] LABS: ANION GAP 8 (5-19); BLOOD UREA NITROGEN 3 mg/dL (7-20); CALCIUM 7.1 mg/dL (8.4-10.2); CARBON DIOXIDE 33 mmol/L (22-30); CHLORIDE 96 mmol/L (98-107); GLUCOSE 82 mg/dL (75-110); PHOSPHORUS 2.9 mg/dL (2.5-4.5); POTASSIUM 3.4 mmol/L (3.6-5.0); SODIUM 136.8 mmol/L (137-145)
[2017-09-14] MEDS: PHOSPHORUS #1 250 MG TABLET PO SCH ×3 (07:29→16:40)
[2017-09-14] MEDS ORDERED: MAGNESIUM SULFATE PF/INJ 40 MEQ/10 ML SDV IV ONE (08:12)
[2017-09-14] MEDS ORDERED: CALCIUM GLUCONATE 1000 MG/10 ML INJ IV ONE (08:12)
[2017-09-14] MEDS ORDERED: POTASSIUM CHLORIDE 10 MEQ CAPSULE.ER PO ONE (08:12)
[2017-09-14 08:26] LABS: HEMATOCRIT 28.4 % (36.0-47.0); HEMOGLOBIN 9.9 g/dL (12.0-15.5); MEAN CORPUSCULAR HEMOGLOBIN 35.1 pg (27.0-33.4); MEAN CORPUSCULAR VOLUME 100 fl (80-97); PLATELET COUNT 145 10^3/uL (150-450); RED BLOOD COUNT 2.83 10^6/uL (3.72-5.28); RED CELL DISTRIBUTION WIDTH 18.5 % (11.5-14.0); WHITE BLOOD COUNT 6.8 10^3/uL (4.0-10.5)
[2017-09-14] MEDS: MAGNESIUM SULFATE 1 GM/D5W 100 ML IV SCH ×2 (08:52→10:15)
[2017-09-14] MEDS: THIAMINE HCL 100 MG TABLET PO SCH (09:29)
[2017-09-14] MEDS: MAGNESIUM OXIDE 400 MG TABLET PO SCH (09:29)
[2017-09-14] MEDS ORDERED: CALCIUM GLUCONATE 2,000 MG in DEXTROSE 5%-WATER 100 ML IV ONE (10:00)
--- NOTE | 2017-09-14 16:49 | PDOC DISCHARGE SUMMARY ---
General - Admit/Disc Date/PCP Admission Date/Primary Care Provider: 09/11/17 14:22 BILLY HUERTA PA-C Discharge Date: 09/14/17 - Discharge Diagnosis (1) Hypocalcemia Is this a current diagnosis for this admission?: Yes Summary: Resolved with repeat IV replacement (2) Hypokalemia Is this a current diagnosis for this admission?: Yes Summary: Resolved with repeated replacement and with correcting of her hypomagnesemia (3) Hypomagnesemia Is this a current diagnosis for this admission?: Yes Summary: Corrected with IV replacement (4) Hyponatremia Is this a current diagnosis for this admission?: Yes Summary: Corrected with IV fluid administration (5) Anemia Is this a current diagnosis for this admission?: Yes Summary: Doing some part iron deficiency, likely from dietary insufficiencies, but with her history of cirrhosis there is obviously a concern for slow to leakage from potential esophageal varices. We have scheduled her for follow-up with Dr. Kitchen as an outpatient. She also got 3 units of packed red blood cells and showed no evidence of blood loss. (6) Alcoholic cirrhosis of liver without ascites Is this a current diagnosis for this admission?: Yes Summary: Strongly encouraged avoidance of alcohol consumption but she was not interested. She did show some signs of some agitation but she never went into full-blown withdrawal. (7) Alcohol dependence, continuous Is this a current diagnosis for this admission?: Yes Summary: As above - Additional Information Resuscitation Status: Full Code Discharge Diet: Other (Comments) - resume previous Discharge Activity: Activity As Tolerated Home Medications: Ferrous Sulfate [Ferrous Sulfate 220 mg/5 ml Elix 60 ml] 5 ml PO Q48H 09/11/17 Furosemide [Lasix 20 mg Tablet] 20 mg PO Q48H 09/11/17 Nifedipine [Procardia XL 60 mg Tablet] 60 mg PO DAILY 09/11/17 Omeprazole 20 mg PO DAILY 09/11/17 Potassium Chloride [K-Tab ER] 8 meq PO DAILY 09/11/17 Spironolactone [Aldactone] 25 mg PO BID 09/11/17 Thiamine HCl [Vitamin B-1] 100 mg PO DAILY 09/11/17 History of Present Illness History of Present Illness: ALCIRA MURRAY is a 72 year old female Hospital Course Hospital Course: She was found to have numerous electrolyte disturbances which were corrected with combinations of IV and oral supplementation. She required repeated administrations of all of her different electrolytes we had to address here. We watch her very closely for alcohol withdrawal and while she got little agitated once or twice she never really went in severe withdrawal. She was anemic when she came in and had an inconsistent story when asked about potential symptoms of GI bleeding. She never showed any signs of bleeding here , but we did give her some packed red blood cells and we have set her up with gastroenterology as an outpatient for endoscopic evaluation, with her history of alcoholic cirrhosis being particularly concerning for esophageal varices. Her exam and her labs were reassuring and she was discharged today in good condition. Physical Exam Vital Signs: Temp Pulse Resp BP Pulse Ox 98.8 F 104 H 20 128/81 H 100 09/14/17 11:53 09/14/17 14:00 09/14/17 11:53 09/14/17 11:53 09/14/17 11:53 Intake & Output 09/13/17 09/14/17 09/15/17 06:59 06:59 06:59 Intake Total 507 759 115 Output Total 2100 500 100 Balance -1593 259 15 Weight 62.4 kg 61.6 kg General appearance: PRESENT: no acute distress, cooperative, disheveled, thin, well-developed Head exam: PRESENT: atraumatic, normocephalic Respiratory exam: PRESENT: clear to auscultation roxanna. ABSENT: rales, rhonchi, wheezes Cardiovascular exam: PRESENT: RRR. ABSENT: diastolic murmur, rubs, systolic murmur GI/Abdominal exam: PRESENT: normal bowel sounds, soft. ABSENT: distended, guarding, mass, organolmegaly, rebound, tenderness Extremities exam: PRESENT: full ROM. ABSENT: calf tenderness, clubbing, pedal edema Neurological exam: PRESENT: alert, awake, oriented to person, oriented to place , oriented to time Results Laboratory Results: 09/14/17 05:59 09/14/17 05:59 09/14/17 09/14/17 05:59 05:59 WBC 6.8 RBC 2.83 L Hgb 9.9 L Hct 28.4 L MCV 100 H MCH 35.1 H MCHC 35.0 RDW 18.5 H Plt Count 145 L Sodium 136.8 L Potassium 3.4 L Chloride 96 L Carbon Dioxide 33 H Anion Gap 8 BUN 3 L Creatinine 0.56 Est GFR ( Amer) > 60 Est GFR (Non-Af Amer) > 60 Glucose 82 Calcium 7.1 L Phosphorus 2.9 Magnesium 1.5 L Impressions: Abdomen Ultrasound 09/11/17 00:00 IMPRESSION: Hepatomegaly with fatty infiltration of the liver. Acute Abdomen Series 09/11/17 11:38 IMPRESSION: NO RADIOGRAPHIC EVIDENCE FOR ACUTE ABDOMINAL DISEASE. Qualifiers - * PATIENT BEING DISCHARGED WITH ANY OF THE FOLLOWING DIAGNOSIS: No
[2017-09-14 17:18] VITALS: BP 132/73
== END 2017-09-14 18:29 | disposition home or self-care (01) | DRG 641 ==
LOC: ER 10:29 → EH 14:22 → UNDOADMIN 14:35 → 3S 18:55
PROVIDERS: ADMIT Internal Medicine; ATTEND Internal Medicine
PROC: 30233N1 Transfusion of Nonautologous Red Blood Cells into Peripheral Vein, Percutaneous Approach (ICD-10-PCS; principal; 2017-09-11)
DX: E87.6 Hypokalemia (principal); E46 Unspecified protein-calorie malnutrition; E83.42 Hypomagnesemia; E87.1 Hypo-osmolality and hyponatremia; E83.51 Hypocalcemia; D50.9 Iron deficiency anemia, unspecified; R19.5 Other fecal abnormalities; K70.30 Alcoholic cirrhosis of liver without ascites; F10.20 Alcohol dependence, uncomplicated; K21.9 Gastro-esophageal reflux disease without esophagitis; R00.0 Tachycardia, unspecified; K70.0 Alcoholic fatty liver; Z68.21 Body mass index [BMI] 21.0-21.9, adult; I10 Essential (primary) hypertension; Z90.49 Acquired absence of other specified parts of digestive tract; Z87.891 Personal history of nicotine dependence; Z82.49 Family history of ischemic heart disease and other diseases of the circulatory system; Z83.3 Family history of diabetes mellitus; Z80.9 Family history of malignant neoplasm, unspecified
CPT/HCPCS: 36415; 36430; 51701; 74022; 76700; 80048; 80053; 80307; 81001; 82272; 82330; 82607; 82728; 82746; 83540; 83550; 83690; 83735; 83935; 84100; 84300; 84443; 85025; 85027; 85045; 85610; 86850; 86900; 86901; 86920; 87493; 93005; 93010; 96365; 96375; 99291; G8978-GP; G8979-GP; J0610; J2060; J2765; J3411; J3475; J3480; J3490; J7050; P9016

== ENCOUNTER 2017-09-15 14:28 | Observation (INO) | payer MEDICARE, OTHER ==
[2017-09-15 15:07] LABS: ABSOLUTE BASOPHILS # (AUTO) 0.1 10^3/uL (0.0-0.2); ABSOLUTE LYMPHOCYTES (AUTO) 0.9 10^3/uL (0.5-4.7); ABSOLUTE MONOCYTES (AUTO) 0.4 10^3/uL (0.1-1.4); ABSOLUTE NEUT (AUTO) 6.6 10^3/uL (1.7-8.2); BASOPHILS % (AUTO) 0.8 % (0-2); EOSINOPHILS % (AUTO) 0.4 % (0-6); HEMATOCRIT 30.3 % (36.0-47.0); HEMOGLOBIN 10.4 g/dL (12.0-15.5); LYMPHOCYTES % (AUTO) 11.5 % (13-45); MEAN CORPUSCULAR HEMOGLOBIN 34.9 pg (27.0-33.4); MEAN CORPUSCULAR HGB CONC 34.2 g/dL (32.0-36.0); MEAN CORPUSCULAR VOLUME 102 fl (80-97); MONOCYTES % (AUTO) 5.3 % (3-13); PLATELET COUNT 177 10^3/uL (150-450); RED BLOOD COUNT 2.97 10^6/uL (3.72-5.28); RED CELL DISTRIBUTION WIDTH 18.3 % (11.5-14.0); TOTAL CELLS COUNTED % (AUTO) 100 %; WHITE BLOOD COUNT 8.1 10^3/uL (4.0-10.5)
[2017-09-15 15:14] LABS: ALANINE AMINOTRANSFERASE 56 U/L (9-52); ALBUMIN 2.4 g/dL (3.5-5.0); ALCOHOL < 10 mg/dL (NONE DETECTED); ALKALINE PHOSPHATASE 103 U/L (38-126); ANION GAP 10 (5-19); ASPARTATE AMINO TRANSFERASE 115 U/L (14-36); BILIRUBIN,DIRECT 11.2 mg/dL (0.0-0.4); BILIRUBIN,TOTAL 13.2 mg/dL (0.2-1.3); BLOOD UREA NITROGEN 3 mg/dL (7-20); CALCIUM 7.9 mg/dL (8.4-10.2); CARBON DIOXIDE 31 mmol/L (22-30); CHLORIDE 95 mmol/L (98-107); GLUCOSE 79 mg/dL (75-110); POTASSIUM 3.8 mmol/L (3.6-5.0); SODIUM 136.4 mmol/L (137-145); TOTAL PROTEIN 5.9 g/dL (6.3-8.2)
[2017-09-15] MEDS ORDERED: ONDANSETRON HCL INJ/PF 4 MG/2 ML SDV IV PRN (17:12)
[2017-09-15] MEDS ORDERED: ACETAMINOPHEN 325 MG TABLET PO PRN (17:12)
[2017-09-15] MEDS ORDERED: LORAZEPAM INJ 2 MG/1 ML VIAL IV PRN (17:24)
[2017-09-15] MEDS ORDERED: FERROUS SULFATE PO SCH (17:30)
[2017-09-15] MEDS ORDERED: SPIRONOLACTONE 25 MG PO SCH (18:00)
--- NOTE | 2017-09-15 18:00 | ER Document Report ---
ED Dizziness/Weakness - General Chief Complaint: General Weakness Stated Complaint: WEAKNESS Time Seen by Provider: 09/15/17 14:41 Mode of Arrival: Medic Information source: Patient Notes: Pt is a 72 year old alcoholic with liver cirrhosis who was just discharged from this hospital yesterday who presents to the ER today by EMS because the family states that she is still weak and won't/can't walk. She lives at home with her sister. She states she hasn't drank any alcohol since the day before being admitted. She admits to epigastric pain that is not new. She denies nausea/ vomiting. She denies cough, dysuria, fever, chills, or new symptoms since leaving the hospital. TRAVEL OUTSIDE OF THE [place] IN LAST 30 DAYS: No - Related Data Allergies/Adverse Reactions: No Known Allergies Allergy (Verified 09/15/17 14:48) Past Medical History - General Information source: Patient - Social History Smoking Status: Former Smoker Frequency of alcohol use: Heavy Drug Abuse: None Family History: CAD, DM, Hypertension, Malignancy Patient has suicidal ideation: No Patient has homicidal ideation: No - Past Medical History Cardiac Medical History: Reports: Hx Hypertension Renal/ Medical History: Denies: Hx Peritoneal Dialysis GI Medical History: Reports: Hx Gastroesophageal Reflux Disease Past Surgical History: Reports: Hx Abdominal Surgery, Hx Cholecystectomy, Other - Reports partial gastrectomy due to medical error Review of Systems - Review of Systems Constitutional: See HPI EENT: No symptoms reported Cardiovascular: No symptoms reported Respiratory: No symptoms reported Gastrointestinal: See HPI Genitourinary: No symptoms reported Female Genitourinary: No symptoms reported Musculoskeletal: No symptoms reported Skin: No symptoms reported Hematologic/Lymphatic: No symptoms reported Neurological/Psychological: No symptoms reported Physical Exam - Vital signs Vitals: Temp Pulse Resp BP Pulse Ox 98.7 F 97 18 142/79 H 98 09/15/17 14:30 09/15/17 14:30 09/15/17 14:30 09/15/17 14:30 09/15/17 14:30 - Notes Notes: PHYSICAL EXAMINATION: GENERAL: elderly, talking to family, in no acute distress. HEAD: Atraumatic, normocephalic. EYES: slightly light sensitive, Pupils equal round and reactive to light, extraocular movements intact, sclera icteric, conjunctiva are normal. NECK: Normal range of motion, supple without lymphadenopathy LUNGS: CTAB and equal. No wheezes rales or rhonchi. HEART: Regular rate and rhythm without murmurs ABDOMEN: Soft, epigastric tenderness. No guarding, no rebound BACK: no vertebral tenderness, normal ROM GI/: no CVA tenderness EXTREMITIES: Normal range of motion, no pitting edema. No cyanosis. NEUROLOGICAL: Cranial nerves grossly intact. Normal sensory/motor exams. PSYCH: Normal mood, normal affect. SKIN: Warm, Dry, normal turgor, no rash Course - Re-evaluation Re-evalutation: 09/15/17 18:00 pt is jaundiced, likely chronic due to her cirrhosis. liver enzymes elevated, chest x ray normal, urinalysis negative for infection, pt in no acute distress, digging through her purse while I examine here, cannot even be bothered to stop while I press on her abdomen and she complains of pain, still digging through her purse. Family is demanding she be admitted, stating that they cannot take care of her and she cannot stand. nurse tried to walk her and pt could not walk at all due to weakness generalized. neuro exam otherwise normal, no signs of stroke. JAKE Marcos hospitalist accepts pt for admission at this time for hospice care, elevated liver enzymes/bilirubin. 09/16/17 22:21 - Vital Signs Vital signs: Temp Pulse Resp BP Pulse Ox 98.7 F 98 17 92/50 L 99 09/16/17 19:39 09/16/17 19:39 09/16/17 19:39 09/16/17 19:39 09/16/17 19:39 - Laboratory Result Diagrams: 09/15/17 14:07 09/16/17 05:12 Laboratory results interpreted by me: 09/15/17 09/15/17 14:07 14:07 RBC 2.97 L Hgb 10.4 L Hct 30.3 L MCV 102 H MCH 34.9 H RDW 18.3 H Seg Neutrophils % 82.0 H Lymphocytes % 11.5 L Sodium 136.4 L Chloride 95 L Carbon Dioxide 31 H BUN 3 L Calcium 7.9 L Total Bilirubin 13.2 H Direct Bilirubin 11.2 H AST 115 H ALT 56 H Total Protein 5.9 L Albumin 2.4 L Discharge - Discharge Clinical Impression: Weakness Condition: Stable Disposition: ADMITTED OBSERVATION Admitting Provider: Hospitalist - [facility] Unit Admitted: Medical Floor
--- NOTE | 2017-09-15 18:33 | PDOC H&P ---
History of Present Illness Admission Date/PCP: 09/15/17 18:10 BILLY HUERTA PA-C Patient complains of: Weakness and inability to walk History of Present Illness: ALCIRA MURRAY is a 72 year old female who was discharged from our service yesterday after being admitted with electrolyte imbalance, acute on chronic blood loss anemia and cirrhosis. Daughter states that she was home she has been unable to get out of bed or walk. She claims she was not able to ambulate when she was here. She apparently had initially refused going to rehab because she was at [facility] and did not like it. Denies any nausea, vomiting or abdominal pain. She denies any diarrhea. She denies any other complaints at the present time. Past Medical History Cardiac Medical History: Reports: Hypertension Pulmonary Medical History: Reports: None EENT Medical History: Reports: None Neurological Medical History: Reports: None Endocrine Medical History: Reports: None Renal/ Medical History: Reports: None Malignancy Medical History: Reports: None GI Medical History: Reports: Cirrhosis, Gastroesophageal Reflux Disease Musculoskeltal Medical History: Reports: None Skin Medical History: Reports: None Psychiatric Medical History: Reports: Alcohol Dependency Traumatic Medical History: Reports: None Hematology: Reports: Anemia Infectious Medical History: Reports: None Past Surgical History Past Surgical History: Reports: Cholecystectomy, Other - Reports partial gastrectomy due to medical error Social History Information Source: Patient Lives with: Family Smoking Status: Former Smoker Frequency of Alcohol Use: Heavy Last Alcohol Use: 09/10/17 Hx Recreational Drug Use: No Drugs: None Hx Prescription Drug Abuse: No - Advance Directive Surrogate healthcare decision maker:: Son who lives in [place] is her MPOA Family History Family History: CAD, DM, Hypertension, Malignancy Parental Family History Reviewed: Yes Children Family History Reviewed: Yes Sibling(s) Family History Reviewed.: Yes Medication/Allergy Allergies/Adverse Reactions: No Known Allergies Allergy (Verified 09/15/17 14:48) Review of Systems Constitutional: PRESENT: anorexia Eyes: ABSENT: visual disturbances Ears: ABSENT: hearing changes Cardiovascular: ABSENT: chest pain, dyspnea on exertion, edema, orthropnea, palpitations Respiratory: ABSENT: cough, hemoptysis Gastrointestinal: PRESENT: abdominal pain, nausea Genitourinary: ABSENT: dysuria, hematuria Musculoskeletal: ABSENT: joint swelling Integumentary: ABSENT: rash, wounds Neurological: PRESENT: weakness Psychiatric: ABSENT: anxiety, depression, homidical ideation, suicidal ideation Hematologic/Lymphatic: PRESENT: easy bleeding, easy bruising Physical Exam Vital Signs: Temp Pulse Resp BP Pulse Ox 98.7 F 97 20 117/77 96 09/15/17 14:30 09/15/17 14:30 09/15/17 18:01 09/15/17 18:01 09/15/17 18:01 General appearance: PRESENT: no acute distress, thin, well-developed, well- nourished Head exam: PRESENT: atraumatic, normocephalic Eye exam: PRESENT: PERRLA, scleral icterus Ear exam: PRESENT: normal external ear exam Mouth exam: PRESENT: moist, tongue midline Neck exam: ABSENT: carotid bruit, JVD, lymphadenopathy, thyromegaly Respiratory exam: PRESENT: clear to auscultation roxanna. ABSENT: rales, rhonchi, wheezes Cardiovascular exam: PRESENT: RRR. ABSENT: diastolic murmur, rubs, systolic murmur Pulses: PRESENT: normal dorsalis pedis pul Vascular exam: PRESENT: normal capillary refill GI/Abdominal exam: PRESENT: normal bowel sounds, soft Rectal exam: PRESENT: deferred Extremities exam: PRESENT: full ROM. ABSENT: calf tenderness, clubbing, pedal edema Musculoskeletal exam: PRESENT: full ROM Neurological exam: PRESENT: alert, awake, oriented to person, oriented to place , oriented to time, oriented to situation, CN II-XII grossly intact. ABSENT: motor sensory deficit Psychiatric exam: PRESENT: appropriate affect, normal mood. ABSENT: homicidal ideation, suicidal ideation Skin exam: PRESENT: dry, jaundice, warm Assessment & Plan - Diagnosis (1) Hyperbilirubinemia Is this a current diagnosis for this admission?: Yes Plan: Total bili elevated at 13.1. Up from 7.1 from previous admission. Long discussion with patient and her daughter regarding prognosis with cirrhosis. We will add rifaximin and follow. They understand there is no cure (2) Alcohol dependence, continuous Is this a current diagnosis for this admission?: Yes Plan: We will add multivitamin, folic acid and thiamine. Ativan as needed for possible DTs. She has not had alcohol since Monday. She had no DTs during her last admission. (3) Alcoholic cirrhosis of liver without ascites Is this a current diagnosis for this admission?: Yes Plan: Jose discussion with patient and daughter regarding long-term prognosis. We will have palliative care see patient in consult. She has requested to be a DNR. (4) Anemia Qualifiers: Anemia type: unspecified type Qualified Code(s): D64.9 - Anemia, unspecified Is this a current diagnosis for this admission?: Yes Plan: Secondary to chronic disease. She did require transfusion during the last hospitalization. Hemoglobin has been stable since that time. She denies any melena, hematochezia or hematemesis (5) Gait disturbance Is this a current diagnosis for this admission?: Yes Plan: Consult physical therapy. Patient states she is too weak to get out of bed. She will need long-term placement. Case management has been consulted as well. (6) Malnutrition Qualifiers: Malnutrition type: protein-calorie malnutrition Is this a current diagnosis for this admission?: Yes Plan: Liberalize diet. Nutritional supplements per dietary (7) Elevated transaminase level Is this a current diagnosis for this admission?: Yes - Time Time Spent: Greater than 70 Minutes Critical Time spent with patient: 25-34 minutes Medications reviewed and adjusted accordingly: Yes Anticipated discharge: SNF Within: when bed available
[2017-09-15] MEDS: RIFAXIMIN 550 MG TABLET PO SCH (19:15)
[2017-09-15] MEDS ORDERED: SPIRONOLACTONE 25 MG TABLET PO ONE (20:30)
[2017-09-15] MEDS: HEPARIN SOD (PORCINE) 5,000 UNIT/ML 1 ML SYRINGE SUBCUT SCH (22:48)
[2017-09-16 05:30] LABS: PROTHROMBIN TIME 21.8 SEC (11.4-15.4)
[2017-09-16 05:41] LABS: ALANINE AMINOTRANSFERASE 51 U/L (9-52); ALBUMIN 2.1 g/dL (3.5-5.0); ALKALINE PHOSPHATASE 88 U/L (38-126); ANION GAP 7 (5-19); ASPARTATE AMINO TRANSFERASE 94 U/L (14-36); BILIRUBIN,DIRECT 10.2 mg/dL (0.0-0.4); BLOOD UREA NITROGEN 4 mg/dL (7-20); CALCIUM 7.7 mg/dL (8.4-10.2); CARBON DIOXIDE 29 mmol/L (22-30); CHLORIDE 99 mmol/L (98-107); GLUCOSE 77 mg/dL (75-110); PHOSPHORUS 3.2 mg/dL (2.5-4.5); POTASSIUM 3.7 mmol/L (3.6-5.0); SODIUM 135.1 mmol/L (137-145); TOTAL PROTEIN 5.2 g/dL (6.3-8.2)
[2017-09-16] MEDS: HEPARIN SOD (PORCINE) 5,000 UNIT/ML 1 ML SYRINGE SUBCUT SCH ×3 (06:57→22:45)
[2017-09-16] MEDS: LANSOPRAZOLE 30 MG TAB.RAP.DR PO SCH ×2 (06:57→17:24)
[2017-09-16] MEDS ORDERED: (PENDING PHARMACY ID) (Nifedipine [Procardia Xl 60 Mg Tablet] 60 MG) PO SCH (10:00)
[2017-09-16] MEDS ORDERED: (PENDING PHARMACY ID) (Thiamine Hcl [Vitamin B-1] 100 MG) PO SCH (10:00)
[2017-09-16] MEDS: RIFAXIMIN 550 MG TABLET PO SCH ×2 (10:02→17:23)
[2017-09-16] MEDS: FERROUS SULFATE LIQUID 300 MG/5 ML UDC PO SCH (10:02)
[2017-09-16] MEDS: NIFEDIPINE 30 MG TAB.ER.24 PO SCH (10:02)
[2017-09-16] MEDS: SPIRONOLACTONE 25 MG TABLET PO SCH ×2 (10:03→17:24)
[2017-09-16] MEDS: THIAMINE HCL 100 MG TABLET PO SCH (10:03)
--- NOTE | 2017-09-16 14:30 | PDOC PROGRESS REPORT ---
Subjective Progress Note for:: 09/16/17 - seen on rounds this morning Subjective:: patient states she feels the same- very weak- nothing focal - states it's all over her body. states she still has some RUQ pain but denies n/v at this time Reason For Visit: HYPERBILIRUBINEMIA Physical Exam Vital Signs: Temp Pulse Resp BP Pulse Ox 98.6 F 108 H 13 126/89 H 96 09/16/17 08:36 09/16/17 08:36 09/16/17 08:36 09/16/17 08:36 09/16/17 08:36 Intake & Output 09/15/17 09/16/17 09/17/17 06:59 06:59 06:59 Intake Total 180 Balance 180 Weight 135 lb 0.001 oz General appearance: PRESENT: no acute distress Head exam: PRESENT: atraumatic, normocephalic Eye exam: PRESENT: EOMI, other - Normal sclera Mouth exam: PRESENT: moist Neck exam: PRESENT: other - no Tracheal deviation Respiratory exam: PRESENT: clear to auscultation roxanna, symmetrical Cardiovascular exam: PRESENT: RRR, +S1, +S2 Pulses: PRESENT: +2 pedal pulses bilateral Vascular exam: PRESENT: normal capillary refill GI/Abdominal exam: PRESENT: normal bowel sounds, tenderness, other - Right upper quadrant tenderness with hepatomegaly Extremities exam: PRESENT: other - Nontender extremities Musculoskeletal exam: PRESENT: other - Nontender Neurological exam: PRESENT: alert, altered, awake, oriented to situation, CN II- XII grossly intact Psychiatric exam: PRESENT: normal mood Skin exam: PRESENT: dry, warm Results Laboratory Results: 09/16/17 05:12 09/16/17 09/16/17 05:12 05:12 Sodium 135.1 L Potassium 3.7 Chloride 99 Carbon Dioxide 29 Anion Gap 7 BUN 4 L Creatinine 0.57 Est GFR ( Amer) > 60 Est GFR (Non-Af Amer) > 60 Glucose 77 Calcium 7.7 L Phosphorus 3.2 Magnesium 1.7 Total Bilirubin 12.0 H AST 94 H ALT 51 Alkaline Phosphatase 88 Ammonia 22.9 Total Protein 5.2 L Albumin 2.1 L 09/16/17 05:12 NT-Pro-B Natriuret Pep 750 Assessment & Plan - Diagnosis (1) Elevated transaminase level Is this a current diagnosis for this admission?: Yes Plan: Most likely secondary to her cirrhosis and is trending. (2) Hyperbilirubinemia Is this a current diagnosis for this admission?: Yes Plan: Stable and trending down-likely secondary to alcoholic cirrhosis (3) Weakness Is this a current diagnosis for this admission?: Yes Plan: She is probably deconditioned from her chronic medical problems. Monitor for now and consider physical therapy. (4) Abdominal pain Qualifiers: Abdominal location: right upper quadrant Qualified Code(s): R10.11 - Right upper quadrant pain Is this a current diagnosis for this admission?: Yes Plan: This is likely secondary to hepatomegaly and cirrhosis. She tells me that she has had chronic pain for a while now. (5) Alcoholic cirrhosis of liver without ascites Is this a current diagnosis for this admission?: Yes Plan: History of alcoholic cirrhosis-I do not see any right upper quadrant ultrasound at this time. No routine ultrasound available in facility at this time. We will get a right upper quadrant ultrasound on Monday. Continue to get PT/INR and CMP to trend LFTs. (6) Anemia Qualifiers: Anemia type: other cause Other causes of anemia: chronic disease, other Qualified Code(s): D63.8 - Anemia in other chronic diseases classified elsewhere Is this a current diagnosis for this admission?: Yes Plan: This is most likely secondary to her alcoholic liver cirrhosis. We will get another CBC in trend. Currently she does not require transfusion unless hemoglobin is less than 7. - Plan Summary Plan Summary: We would like to consult GI for an evaluation but we are not sure if GI is available on Monday. I will have to speak with her son regarding this matter.
[2017-09-17 04:54] LABS: HEMOGLOBIN 9.2 g/dL (12.0-15.5); MEAN CORPUSCULAR HEMOGLOBIN 35.3 pg (27.0-33.4); MEAN CORPUSCULAR HGB CONC 35.2 g/dL (32.0-36.0); MEAN CORPUSCULAR VOLUME 100 fl (80-97); PLATELET COUNT 157 10^3/uL (150-450); RED CELL DISTRIBUTION WIDTH 17.6 % (11.5-14.0); WHITE BLOOD COUNT 6.9 10^3/uL (4.0-10.5)
[2017-09-17 04:55] LABS: PROTHROMBIN TIME 21.7 SEC (11.4-15.4)
[2017-09-17 05:15] LABS: ALANINE AMINOTRANSFERASE 43 U/L (9-52); ALBUMIN 2.1 g/dL (3.5-5.0); ALKALINE PHOSPHATASE 85 U/L (38-126); ANION GAP 9 (5-19); ASPARTATE AMINO TRANSFERASE 87 U/L (14-36); BILIRUBIN,DIRECT 11.2 mg/dL (0.0-0.4); BILIRUBIN,TOTAL 12.9 mg/dL (0.2-1.3); BLOOD UREA NITROGEN 4 mg/dL (7-20); CALCIUM 8.1 mg/dL (8.4-10.2); CARBON DIOXIDE 28 mmol/L (22-30); CHLORIDE 99 mmol/L (98-107); GLUCOSE 83 mg/dL (75-110); POTASSIUM 3.8 mmol/L (3.6-5.0); SODIUM 135.6 mmol/L (137-145); TOTAL PROTEIN 5.2 g/dL (6.3-8.2)
[2017-09-17] MEDS: LANSOPRAZOLE 30 MG TAB.RAP.DR PO SCH ×2 (05:54→16:09)
[2017-09-17] MEDS: HEPARIN SOD (PORCINE) 5,000 UNIT/ML 1 ML SYRINGE SUBCUT SCH ×3 (05:54→22:10)
[2017-09-17] MEDS: THIAMINE HCL 100 MG TABLET PO SCH (10:24)
[2017-09-17] MEDS: SPIRONOLACTONE 25 MG TABLET PO SCH ×2 (10:24→17:27)
[2017-09-17] MEDS: RIFAXIMIN 550 MG TABLET PO SCH ×2 (10:25→17:27)
[2017-09-17] MEDS: NIFEDIPINE 30 MG TAB.ER.24 PO SCH (10:25)
--- NOTE | 2017-09-17 18:27 | PDOC PROGRESS REPORT ---
Subjective Progress Note for:: 09/17/17 - patient seen on rounds this afternoon Subjective:: She has no acute complaints today. States she still feels very tired today. States that they tried to walk her from physical therapy but she took a few steps but there help but that was it. Reason For Visit: HYPERBILIRUBINEMIA Physical Exam Vital Signs: Temp Pulse Resp BP Pulse Ox 98.7 F 100 14 119/62 98 09/17/17 15:34 09/17/17 15:34 09/17/17 15:34 09/17/17 15:34 09/17/17 15:34 Intake & Output 09/16/17 09/17/17 09/18/17 06:59 06:59 06:59 Intake Total 180 587 10 Output Total 2 Balance 180 585 10 Weight 136 lb 7.458 oz General appearance: PRESENT: no acute distress, thin Head exam: PRESENT: atraumatic, normocephalic Eye exam: PRESENT: EOMI. ABSENT: scleral icterus Ear exam: PRESENT: normal external ear exam Mouth exam: PRESENT: moist, neck supple Respiratory exam: PRESENT: clear to auscultation roxanna, symmetrical Cardiovascular exam: PRESENT: +S1 - Agsutina Victor, +S2 Pulses: PRESENT: +2 pedal pulses bilateral GI/Abdominal exam: PRESENT: normal bowel sounds, soft, tenderness - RUQ and epigastric Musculoskeletal exam: ABSENT: tenderness Neurological exam: PRESENT: alert, awake, CN II-XII grossly intact Skin exam: PRESENT: dry, warm Results Laboratory Results: 09/17/17 04:27 09/17/17 04:27 09/17/17 09/17/17 04:27 04:27 WBC 6.9 RBC 2.60 L Hgb 9.2 L Hct 26.0 L MCV 100 H MCH 35.3 H MCHC 35.2 RDW 17.6 H Plt Count 157 Sodium 135.6 L Potassium 3.8 Chloride 99 Carbon Dioxide 28 Anion Gap 9 BUN 4 L Creatinine 0.61 Est GFR ( Amer) > 60 Est GFR (Non-Af Amer) > 60 Glucose 83 Calcium 8.1 L Total Bilirubin 12.9 H AST 87 H ALT 43 Alkaline Phosphatase 85 Total Protein 5.2 L Albumin 2.1 L 09/16/17 05:12 NT-Pro-B Natriuret Pep 750 Assessment & Plan - Diagnosis (1) Elevated transaminase level Is this a current diagnosis for this admission?: Yes Plan: trended down slightly- likely 2/2 cirrhosis (2) Hyperbilirubinemia Is this a current diagnosis for this admission?: Yes Plan: still elevated today- most likely this is due to her cirrhosis - see plan below about discussion with family. I did try to transfer patient per family request to [facility] for Gi services which are not available here- unfortunately i was denied transfer for lack of medical necessity by the medical team there. (3) Weakness Is this a current diagnosis for this admission?: Yes Plan: no change since yesterday (4) Abdominal pain Qualifiers: Abdominal location: right upper quadrant Qualified Code(s): R10.11 - Right upper quadrant pain Is this a current diagnosis for this admission?: Yes Plan: This is likely secondary to hepatomegaly and cirrhosis. no changes today (5) Alcoholic cirrhosis of liver without ascites Is this a current diagnosis for this admission?: Yes (6) Anemia Qualifiers: Anemia type: other cause Other causes of anemia: chronic disease, other Qualified Code(s): D63.8 - Anemia in other chronic diseases classified elsewhere Is this a current diagnosis for this admission?: Yes - Time Time Spent with patient: 15-24 minutes Anticipated discharge: Acute Rehab Within: when bed available - Plan Summary Plan Summary: I had a long discussion today with her son and daughter regarding patient's care. Both son and daughter wanted me to transfer patient to [facility] for second opinion by a GI or liver specialist. I had advised family that she did not meet medical criteria for transfer to a tertiary center but they persisted. I called [facility] and their medical team declined transfer for lack of medical necessity. At this time I have not spoken with family about this status. I will speak with them tomorrow. But I did ask them if transfer was declined but with the prefer-they said that they would like to acute rehab for her mother and I have consulted case management regarding that. We will try to find her placement until then she will remain here. She continues to be on observation care for this time.
[2017-09-18] MEDS: LANSOPRAZOLE 30 MG TAB.RAP.DR PO SCH (06:32)
[2017-09-18] MEDS: HEPARIN SOD (PORCINE) 5,000 UNIT/ML 1 ML SYRINGE SUBCUT SCH ×2 (06:32→15:18)
--- NOTE | 2017-09-18 08:22 | Physician Advisory Note ---
Physician Advisor ProgressNote .: Pursuant to the plan for [facility], I have reviewed the medical record for this patient. Physician Advisor Statement: Nice job documenting suspected type of chronic dz producing the anemia. RUQ U/S 09/11/17 = HM w/fatty liver. Status: no indication for Inpt. Welcome to [facility]! Please feel free to call/text if status/documentation ?s or anything I can do for you. MD Caryn [facility] PHysician Advisor [phone]
[2017-09-18] MEDS: NIFEDIPINE 30 MG TAB.ER.24 PO SCH (10:14)
[2017-09-18] MEDS: RIFAXIMIN 550 MG TABLET PO SCH (10:14)
[2017-09-18] MEDS: THIAMINE HCL 100 MG TABLET PO SCH (10:14)
[2017-09-18] MEDS: SPIRONOLACTONE 25 MG TABLET PO SCH (10:14)
[2017-09-18] MEDS: FERROUS SULFATE LIQUID 300 MG/5 ML UDC PO SCH (10:14)
[2017-09-18] MEDS ORDERED: DOCUSATE SODIUM 100 MG CAPSULE PO PRN (11:00)
--- NOTE | 2017-09-18 15:54 | PDOC TRANSFER SUMMARY ---
General - Admit/Disc Date/PCP Admission Date/Primary Care Provider: 09/15/17 18:10 BILLY HUERTA PA-C Discharge Date: 09/18/17 - Patient discharged this afternoon - Discharge Diagnosis (1) Elevated transaminase level Is this a current diagnosis for this admission?: Yes (2) Hyperbilirubinemia Is this a current diagnosis for this admission?: Yes (3) Weakness Is this a current diagnosis for this admission?: Yes (4) Abdominal pain Is this a current diagnosis for this admission?: Yes (5) Alcoholic cirrhosis of liver without ascites Is this a current diagnosis for this admission?: Yes (6) Anemia Is this a current diagnosis for this admission?: Yes - Additional Information Resuscitation Status: Do Not Resuscitate Discharge Diet: As Tolerated Discharge Activity: Activity As Tolerated Home Medications: Ergocalciferol (Vitamin D2) [Drisdol 50,000 unit (1.25MG) Capsule] 50,000 unit PO MO@1000 09/15/17 Ferrous Sulfate [Ferrous Sulfate 220 mg/5 ml Elix 60 ml] 5 ml PO Q2D 09/15/17 Furosemide [Lasix 20 mg Tablet] 20 mg PO Q2D 09/15/17 Nifedipine [Nifedipine ER] 60 mg PO DAILY 09/15/17 Omeprazole 20 mg PO DAILY 09/15/17 Potassium Chloride [Klor-Con 8] 8 meq PO DAILY 09/15/17 Spironolactone [Aldactone] 25 mg PO Q12 09/15/17 Ferrous Sulfate [Ferrous Sulfate Liquid 300 mg/5 ml Udcup] 220 mg PO Q2D@1000 udc 09/18/17 Rifaximin [Xifaxan 550 mg Tablet] 550 mg PO BID tablet 09/18/17 Thiamine HCl [Thiamine 100 mg Tablet] 100 mg PO DAILY tablet 09/18/17 History of Present Illness Admission Date/PCP: 09/15/17 18:10 BILLY HUERTA PA-C History of Present Illness: ALCIRA MURRAY is a 72 year old female who was placed in observation for generalized weakness and found to have hyperbilirubinemia. Please see initial H &P for full assessment and plan Hospital Course Hospital Course: After admission to the hospital her bilirubin remained stable. I spoke with family about her condition and they requested that she be transferred to [facility] in [place] for GI and liver specialist follow-up. I advised family that she does not require tertiary level of care at this time since she is on appropriate medications and her medical status is secondary to her alcoholic cirrhosis. Due to family's persistence of request I reluctantly called and spoke with [facility] [place]. Unfortunately she did not meet medical necessity to be transferred as per their medicine physician. I advised the family and they spoke with case management about possible short- term rehab. She was accepted to a short-term rehab facility and will be going there today. Given her high meld score she has a poor prognosis. Given her continued use of alcohol she is unlikely a candidate for liver transplant. Physical Exam Vital Signs: Temp Pulse Resp BP Pulse Ox 98.5 F 95 12 134/64 H 100 09/18/17 11:41 09/18/17 11:41 09/18/17 11:41 09/18/17 11:41 09/18/17 11:41 Intake & Output 09/17/17 09/18/17 09/19/17 06:59 06:59 06:59 Intake Total 587 921 Output Total 2 Balance 585 921 Weight 136 lb 7.458 oz 132 lb 15.02 oz General appearance: PRESENT: no acute distress, thin Head exam: PRESENT: atraumatic, normocephalic Eye exam: PRESENT: EOMI, scleral icterus Mouth exam: PRESENT: moist, neck supple Neck exam: ABSENT: tenderness, tracheal deviation Cardiovascular exam: PRESENT: +S1, +S2 Pulses: PRESENT: +2 pedal pulses bilateral GI/Abdominal exam: PRESENT: normal bowel sounds, soft, tenderness - Right upper quadrant and epigastric tenderness to palpation Extremities exam: ABSENT: joint swelling, pedal edema Musculoskeletal exam: ABSENT: tenderness Neurological exam: PRESENT: alert, awake, oriented to person, oriented to place , oriented to time, CN II-XII grossly intact Skin exam: PRESENT: dry, jaundice - Since she is -[place] it is difficult to tell her skin changes but she looks slightly jaundiced, warm Results Laboratory Results: 09/17/17 04:27 09/17/17 04:27 09/16/17 05:12 NT-Pro-B Natriuret Pep 750 Transfer Plan - Time Spent with Patient Time spent with patient: Less than 30 Minutes Qualifiers - * PATIENT BEING DISCHARGED WITH ANY OF THE FOLLOWING DIAGNOSIS: No Plan Discharge Plan: Discharged to short-term rehab Time Spent: Less than 30 Minutes
[2017-09-18 15:58] VITALS: BP 113/62
== END 2017-09-18 17:20 ==
LOC: ER 14:28 → EH 18:10 → 4N 19:36
PROVIDERS: ADMIT Family Medicine; ATTEND Family Medicine
DX: E80.7 Disorder of bilirubin metabolism, unspecified (principal); R74.0 Nonspecific elevation of levels of transaminase and lactic acid dehydrogenase [LDH]; R53.1 Weakness; F10.20 Alcohol dependence, uncomplicated; K70.30 Alcoholic cirrhosis of liver without ascites; G89.29 Other chronic pain; R10.11 Right upper quadrant pain; R26.2 Difficulty in walking, not elsewhere classified; D63.8 Anemia in other chronic diseases classified elsewhere; E46 Unspecified protein-calorie malnutrition; I10 Essential (primary) hypertension; K21.9 Gastro-esophageal reflux disease without esophagitis; Z66 Do not resuscitate; Z68.24 Body mass index [BMI] 24.0-24.9, adult; Z79.899 Other long term (current) drug therapy; Z90.3 Acquired absence of stomach [part of]; Z90.49 Acquired absence of other specified parts of digestive tract; Z87.891 Personal history of nicotine dependence; Z74.01 Bed confinement status
CPT/HCPCS: 99285; 51701; 36415 ×3; 80307; 82140; 83735; 84100; 85025; 85027; 85610 ×2; 80053 ×3; 83880; 97530; 97110; 97163; J1644 ×4; A9270 ×17; J3490 ×2; G8978; G8979

== ENCOUNTER 2017-10-11 14:10 | Observation (INO) | payer MEDICARE, OTHER ==
[2017-10-11 15:00] LABS: ABSOLUTE EOSINOPHILS # (AUTO) 0.1 10^3/uL (0.0-0.6); ABSOLUTE LYMPHOCYTES (AUTO) 1.1 10^3/uL (0.5-4.7); ABSOLUTE NEUT (AUTO) 12.2 10^3/uL (1.7-8.2); BASOPHILS % (AUTO) 0.2 % (0-2); EOSINOPHILS % (AUTO) 0.5 % (0-6); HEMATOCRIT 21.5 % (36.0-47.0); LYMPHOCYTES % (AUTO) 7.4 % (13-45); MEAN CORPUSCULAR HEMOGLOBIN 33.7 pg (27.0-33.4); MEAN CORPUSCULAR HGB CONC 33.4 g/dL (32.0-36.0); MEAN CORPUSCULAR VOLUME 101 fl (80-97); MONOCYTES % (AUTO) 6.8 % (3-13); PLATELET COUNT 359 10^3/uL (150-450); RED BLOOD COUNT 2.13 10^6/uL (3.72-5.28); RED CELL DISTRIBUTION WIDTH 16.5 % (11.5-14.0); SEGMENTED NEUTROPHILS % (AUTO) 85.1 % (42-78); TOTAL CELLS COUNTED % (AUTO) 100 %; WHITE BLOOD COUNT 14.3 10^3/uL (4.0-10.5)
[2017-10-11 15:02] LABS: ANION GAP 15 (5-19); BLOOD UREA NITROGEN 12 mg/dL (7-20); CALCIUM 8.3 mg/dL (8.4-10.2); CARBON DIOXIDE 16 mmol/L (22-30); CHLORIDE 105 mmol/L (98-107); GLUCOSE 81 mg/dL (75-110); POTASSIUM 4.8 mmol/L (3.6-5.0); SODIUM 135.6 mmol/L (137-145)
[2017-10-11 15:07] LABS: HEMOGLOBIN 7.2 g/dL (12.0-15.5)
[2017-10-11 15:35] LABS: INTERNATIONAL RATION (INR) 1.47; PROTHROMBIN TIME 18.5 SEC (11.4-15.4)
[2017-10-11 15:36] LABS: PARTIAL THROMBOPLASTIN TIME 40.2 SEC (23.5-35.8)
[2017-10-11 15:39] LABS: ALANINE AMINOTRANSFERASE 46 U/L (9-52); ALBUMIN 2.6 g/dL (3.5-5.0); ALCOHOL < 10 mg/dL (NONE DETECTED); ALKALINE PHOSPHATASE 153 U/L (38-126); ASPARTATE AMINO TRANSFERASE 86 U/L (14-36); BILIRUBIN,TOTAL 6.1 mg/dL (0.2-1.3); TOTAL PROTEIN 6.5 g/dL (6.3-8.2)
[2017-10-11] MEDS ORDERED: NORMAL SALINE 250 ML IV PRN ×2 (15:43)
--- NOTE | 2017-10-11 16:15 | ER Document Report ---
ED General - General Chief Complaint: Abnormal Lab Results Stated Complaint: ABNORMAL LABS Time Seen by Provider: 10/11/17 14:23 TRAVEL OUTSIDE OF THE [place] IN LAST 30 DAYS: No - HPI Patient complains to provider of: Low H&H Notes: Patient with history of alcoholic liver disease coming in today for low hemoglobin hematocrit was performed at her nursing care facility. Patient otherwise asymptomatic denies any weakness denies any dizziness. Patient sitting comfortably in no obvious distress. Patient states she is stop drinking alcohol last time she had any alcohol drink was on Father's Day of this year. Patient has had multiple recent admissions requiring transfusions because of anemia. Patient otherwise has not followed up with any hepatology specialist is that her meld score is high continue to drink alcohol. Patient states she did have recent colonoscopy performed within the last month by Dr. talbert states that no abnormalities were found. Patient otherwise denies fevers chills nausea vomiting diarrhea - Related Data Allergies/Adverse Reactions: No Known Allergies Allergy (Verified 09/15/17 14:48) Past Medical History - Social History Smoking Status: Former Smoker Chew tobacco use (# tins/day): No Frequency of alcohol use: None Drug Abuse: None Family History: CAD, DM, Hypertension, Malignancy Patient has suicidal ideation: No Patient has homicidal ideation: No - Past Medical History Cardiac Medical History: Reports: Hx Hypertension Renal/ Medical History: Denies: Hx Peritoneal Dialysis GI Medical History: Reports: Hx Cirrhosis, Hx Gastroesophageal Reflux Disease Psychiatric Medical History: Denies: Hx Depression Past Surgical History: Reports: Hx Abdominal Surgery, Hx Cholecystectomy, Other - Reports partial gastrectomy due to medical error Review of Systems - Review of Systems Constitutional: Other - Abnormal labs EENT: No symptoms reported Cardiovascular: No symptoms reported Respiratory: No symptoms reported Gastrointestinal: No symptoms reported Genitourinary: No symptoms reported Female Genitourinary: No symptoms reported Musculoskeletal: No symptoms reported Skin: No symptoms reported Hematologic/Lymphatic: No symptoms reported Neurological/Psychological: No symptoms reported -: Yes All other systems reviewed and negative Physical Exam - Vital signs Vitals: Temp BP 98.0 F 121/70 10/11/17 14:50 10/11/17 14:50 Interpretation: Normal - General General appearance: Appears well, Alert - HEENT Head: Normocephalic, Atraumatic Eyes: Normal Pupils: PERRL - Respiratory Respiratory status: No respiratory distress Chest status: Nontender Breath sounds: Normal Chest palpation: Normal - Cardiovascular Rhythm: Regular Heart sounds: Normal auscultation Murmur: No - Abdominal Inspection: Normal Distension: No distension Bowel sounds: Normal Tenderness: Nontender Organomegaly: No organomegaly - Rectal Notes: Light brown stool on rectal exam patient with multiple external hemorrhoids - Back Back: Normal, Nontender - Extremities General upper extremity: Normal inspection, Nontender, Normal color, Normal ROM , Normal temperature General lower extremity: Normal inspection, Nontender, Normal color, Normal ROM , Normal temperature, Normal weight bearing. No: Murray's sign - Neurological Neuro grossly intact: Yes Cognition: Normal Orientation: AAOx4 [place] Coma Scale Eye Opening: Spontaneous Lisa Coma Scale Verbal: Oriented Lisa Coma Scale Motor: Obeys Commands Lisa Coma Scale Total: 15 Speech: Normal Motor strength normal: LUE, RUE, LLE, RLE Sensory: Normal - Psychological Associated symptoms: Normal affect, Normal mood - Skin Skin Temperature: Warm Skin Moisture: Dry Skin Color: Normal Course - Re-evaluation Re-evalutation: 10/11/17 22:55 Laboratory studies that showed improvement in the patient's bilirubin. Meld score is also improved from her recent admission. Otherwise patient looks to only need transfusion at this time. Did discuss with hospitalist agrees to observe the patient so that she can receive her blood transfusion more likely at that patient will be discharged home. - Vital Signs Vital signs: Temp Pulse Resp BP Pulse Ox 98.2 F 88 16 137/74 H 100 10/11/17 21:50 10/11/17 21:50 10/11/17 21:50 10/11/17 21:50 10/11/17 21:50 - Laboratory Result Diagrams: 10/11/17 14:28 10/11/17 14:28 Laboratory results interpreted by me: 10/11/17 10/11/17 10/11/17 14:28 14:28 14:28 WBC 14.3 H RBC 2.13 L Hgb 7.2 L Hct 21.5 L MCV 101 H MCH 33.7 H RDW 16.5 H Seg Neutrophils % 85.1 H Lymphocytes % 7.4 L Absolute Neutrophils 12.2 H PT APTT Sodium 135.6 L Carbon Dioxide 16 L Calcium 8.3 L Total Bilirubin Direct Bilirubin AST Alkaline Phosphatase Albumin Crossmatch See Detail 10/11/17 10/11/17 14:28 14:28 WBC RBC Hgb Hct MCV MCH RDW Seg Neutrophils % Lymphocytes % Absolute Neutrophils PT 18.5 H APTT 40.2 H Sodium Carbon Dioxide Calcium Total Bilirubin 6.1 H Direct Bilirubin 5.0 H AST 86 H Alkaline Phosphatase 153 H Albumin 2.6 L Crossmatch Discharge - Discharge Clinical Impression: Anemia requiring blood transfusion, Alcoholic liver disease, unspecified Condition: Good Disposition: ADMITTED OBSERVATION Admitting Provider: Hospitalist - [facility] Admitted: Telemetry
[2017-10-11] MEDS ORDERED: LORAZEPAM 1 MG TABLET PO PRN (18:00)
--- NOTE | 2017-10-11 18:11 | PDOC H&P ---
History of Present Illness Admission Date/PCP: 10/11/17 17:32 BILLY HUERTA PA-C History of Present Illness: ALCIRA MURRAY is a 72 year old female who was sent to the hospital by her primary care provider with a low hemoglobin. She has a past medical history significant for alcoholic liver disease. She still unfortunately sporadically drinks. She was recently hospitalized in this facility from 09/15 to 09/18/2017 with decompensated liver failure. Ultimately she was sent to subacute rehabilitation at discharge and had been doing fairly well. The patient had repeat labs today as an outpatient was found to have a hemoglobin of 6.1 and she was sent to the emergency room for further evaluation. Her blood counts were rechecked in the emergency room. Currently her hemoglobin is 7.2. Earlier this morning her white blood cell count was 9.0. Currently 14.3. The emergency room physician requested observation admission to transfuse the patient overnight. When I went to see her, she states that she just feels somewhat weak. She also states that she has had a cold and has a cough and is bringing up some yellow sputum. She also states that she is having difficulty voiding and at times has some burning when she voids. She states that the last time that she drank any alcohol was on Father's Day and states that she has not had anything since that time. Past Medical History Cardiac Medical History: Reports: Hypertension Pulmonary Medical History: Reports: Other - She states she recently has had a cold and a productive cough with yellow s EENT Medical History: Reports: None Neurological Medical History: Reports: Seizures - She has a history of alcoholic seizures Endocrine Medical History: Reports: None Renal/ Medical History: Reports: None Malignancy Medical History: Reports: None GI Medical History: Reports: Cirrhosis, Gastroesophageal Reflux Disease, Other - Alcoholic liver disease Musculoskeltal Medical History: Reports: None Skin Medical History: Reports: None Psychiatric Medical History: Reports: Alcohol Dependency Denies: Depression Traumatic Medical History: Reports: None Hematology: Reports: Anemia Infectious Medical History: Reports: None Past Surgical History Past Surgical History: Reports: Cholecystectomy, Other - Reports partial gastrectomy due to medical error Social History Information Source: Patient Lives with: Long Term - Currently receiving subacute rehabilitation Smoking Status: Former Smoker Frequency of Alcohol Use: Heavy - Patient states that she last drank on Father' s Day Hx Recreational Drug Use: No Drugs: None Hx Prescription Drug Abuse: No Family History Family History: CAD, DM, Hypertension, Malignancy Parental Family History Reviewed: Yes Children Family History Reviewed: Yes Sibling(s) Family History Reviewed.: Yes Medication/Allergy Home Medications: Ergocalciferol (Vitamin D2) [Vitamin D2] 50,000 unit PO MO@1000 10/11/17 Ferrous Sulfate [Ferosul] 220 mg PO Q2DAYS 10/11/17 Furosemide [Lasix 20 mg Tablet] 20 mg PO Q2DAYS 10/11/17 Nifedipine [Nifedipine ER] 60 mg PO DAILY 10/11/17 Omeprazole 20 mg PO DAILY 10/11/17 Polyethylene Glycol 3350 [Miralax Powder 17 gm/Packet] 1 packet PO DAILY Potassium Chloride 10 meq PO DAILY 10/11/17 Rifaximin [Xifaxan 550 Mg Tablet] 550 mg PO BID 10/11/17 Spironolactone [Aldactone 25 mg Tablet] 25 mg PO Q12 10/11/17 Thiamine HCl [Thiamine 100 mg Tablet] 100 mg PO DAILY 10/11/17 Allergies/Adverse Reactions: No Known Allergies Allergy (Verified 09/15/17 14:48) Review of Systems Constitutional: PRESENT: chills, headache(s), weakness. ABSENT: fatigue, fever( s) Eyes: ABSENT: visual disturbances Ears: ABSENT: hearing changes Cardiovascular: ABSENT: chest pain, dyspnea on exertion, edema, orthropnea, palpitations Respiratory: PRESENT: cough, sputum - Yellow sputum Gastrointestinal: ABSENT: abdominal pain, constipation, diarrhea, hematemesis, hematochezia, nausea, vomiting Genitourinary: PRESENT: difficulty urinating, dysuria Musculoskeletal: ABSENT: joint swelling Integumentary: ABSENT: rash, wounds Neurological: ABSENT: abnormal gait, abnormal speech, confusion, dizziness, focal weakness, syncope Endocrine: ABSENT: cold intolerance, heat intolerance, polydipsia, polyuria Hematologic/Lymphatic: ABSENT: easy bleeding, easy bruising Physical Exam Vital Signs: Temp Pulse Resp BP Pulse Ox 98.1 F 93 14 125/70 100 10/11/17 17:30 10/11/17 17:30 10/11/17 17:30 10/11/17 17:30 10/11/17 17:30 General appearance: PRESENT: no acute distress, well-developed, well-nourished Head exam: PRESENT: atraumatic, normocephalic Eye exam: PRESENT: scleral icterus Ear exam: PRESENT: normal external ear exam Mouth exam: PRESENT: moist, tongue midline Neck exam: ABSENT: carotid bruit, JVD, lymphadenopathy, thyromegaly Respiratory exam: PRESENT: clear to auscultation roxanna. ABSENT: rales, rhonchi, wheezes Cardiovascular exam: PRESENT: RRR. ABSENT: diastolic murmur, rubs, systolic murmur Pulses: PRESENT: normal dorsalis pedis pul GI/Abdominal exam: PRESENT: normal bowel sounds, soft. ABSENT: distended, guarding, mass, organolmegaly, rebound, tenderness Rectal exam: PRESENT: deferred Extremities exam: PRESENT: full ROM. ABSENT: calf tenderness, clubbing, pedal edema Neurological exam: PRESENT: alert, awake, oriented to person, oriented to place , oriented to time, oriented to situation, CN II-XII grossly intact. ABSENT: motor sensory deficit Psychiatric exam: PRESENT: appropriate affect, normal mood. ABSENT: homicidal ideation, suicidal ideation Skin exam: PRESENT: dry, intact, jaundice, warm. ABSENT: cyanosis, rash Assessment & Plan - Diagnosis (1) Anemia Is this a current diagnosis for this admission?: Yes Plan: The patient has a macrocytic anemia consistent with her alcohol use. There also has an element of chronic disease. At this point she has been transfused 2 units of packed red blood cells. She will have a CBC drawn in the morning. Rectal exam revealed a negative stool (2) Leukocytosis Is this a current diagnosis for this admission?: Yes Plan: The patient has a white blood cell count of 14,000. She states that she has had a cold for the past week and is coughing up yellow sputum. She also complains of difficulty voiding and mild dysuria. I am going to obtain a chest x-ray and a sputum culture. We will obtain a UA and urine culture and I have asked the nursing staff to bladder scan the patient post voiding to see if she is retaining urine. At this point I am going to hold off on starting antibiotic therapy until these results are in. She will have a CBC checked in the morning. (3) Alcoholic liver disease Is this a current diagnosis for this admission?: Yes Plan: Unfortunately the patient claims that she sporadically drinks. She states her last drink was on Father's Day. I will have as needed Ativan in the event that she should start going through withdrawal. She will continue her home regimen of medications to include Aldactone, Lasix, rifaximin (4) Elevated bilirubin Is this a current diagnosis for this admission?: Yes Plan: Bilirubin when she was discharged from the hospital on September 18 was 12. Today is 6.1. She has mildly elevated transaminases. She will have a liver panel drawn in the morning. (5) Thrombocytopenia Is this a current diagnosis for this admission?: Yes Plan: Secondary to her alcoholic liver disease (6) Metabolic acidosis Is this a current diagnosis for this admission?: Yes Plan: Possibly due to early infection. She will have a chemistry panel drawn in the morning and workup as outlined above (7) Difficulty voiding Is this a current diagnosis for this admission?: Yes Plan: I will have the nursing staff BladderScan the patient post voiding. She could have some urinary retention (8) Full code status Is this a current diagnosis for this admission?: Yes - Time Time Spent: 50 to 70 Minutes - Inpatient Certification Medical Necessity: Other - The patient will be placed in observation in the hospital. She will be transfused 2 units of packed red blood cells. Repeat labs will be obtained in the morning. She does appear to have a mild infection. At this point I anticipate that her hospitalization will be less than 2 midnights. Hopefully she can be discharged back to her skilled facility to complete her subacute rehabilitation tomorrow
--- NOTE | 2017-10-11 18:37 | RADIOLOGY REPORT (SQ) ---
EXAM DESCRIPTION: CHEST 2 VIEWS COMPLETED DATE/TIME: 10/11/2017 6:11 pm REASON FOR STUDY: cough , leukocytosis COMPARISON: 04/08/2017 EXAM PARAMETERS: NUMBER OF VIEWS: two views TECHNIQUE: Digital Frontal and Lateral radiographic views of the chest acquired. RADIATION DOSE: NA LIMITATIONS: none FINDINGS: LUNGS AND PLEURA: No acute opacities, masses or pneumothorax. No pleural effusion. MEDIASTINUM AND HILAR STRUCTURES: Stable. HEART AND VASCULAR STRUCTURES: Heart normal size. No evidence for failure. BONES: No acute findings. HARDWARE: None in the chest. OTHER: No other significant finding. IMPRESSION: NO ACUTE RADIOGRAPHIC FINDING IN THE CHEST. TECHNICAL DOCUMENTATION: JOB ID: [id number] [id number] 2010 [employer]- All Rights Reserved Reading location - IP/workstation name: [email or web address]
[2017-10-11] MEDS ORDERED: RIFAXIMIN 550 MG TABLET PO ONE (19:30)
[2017-10-11] MEDS: SPIRONOLACTONE 25 MG TABLET PO SCH (21:39)
[2017-10-12 00:44] LABS: ABSOLUTE EOSINOPHILS # (AUTO) 0.1 10^3/uL (0.0-0.6); ABSOLUTE MONOCYTES (AUTO) 0.7 10^3/uL (0.1-1.4); ABSOLUTE NEUT (AUTO) 7.1 10^3/uL (1.7-8.2); BASOPHILS % (AUTO) 0.3 % (0-2); LYMPHOCYTES % (AUTO) 10.9 % (13-45); MEAN CORPUSCULAR HGB CONC 34.7 g/dL (32.0-36.0); MONOCYTES % (AUTO) 7.5 % (3-13); PLATELET COUNT 258 10^3/uL (150-450); RED BLOOD COUNT 3.03 10^6/uL (3.72-5.28); RED CELL DISTRIBUTION WIDTH 18.9 % (11.5-14.0); SEGMENTED NEUTROPHILS % (AUTO) 80.3 % (42-78); TOTAL CELLS COUNTED % (AUTO) 100 %; WHITE BLOOD COUNT 8.9 10^3/uL (4.0-10.5)
[2017-10-12 00:46] LABS: HEMOGLOBIN 9.7 g/dL (12.0-15.5)
[2017-10-12 00:47] LABS: MEAN CORPUSCULAR VOLUME 92 fl (80-97)
[2017-10-12] MEDS: LANSOPRAZOLE 30 MG TAB.RAP.DR PO SCH (05:28)
[2017-10-12 05:42] LABS: ANION GAP 11 (5-19); BLOOD UREA NITROGEN 10 mg/dL (7-20); CALCIUM 8.1 mg/dL (8.4-10.2); CARBON DIOXIDE 17 mmol/L (22-30); CHLORIDE 109 mmol/L (98-107); GLUCOSE 80 mg/dL (75-110); PHOSPHORUS 3.6 mg/dL (2.5-4.5); POTASSIUM 4.5 mmol/L (3.6-5.0)
[2017-10-12 05:44] LABS: HEMOGLOBIN 10.1 g/dL (12.0-15.5); MEAN CORPUSCULAR HEMOGLOBIN 32.3 pg (27.0-33.4); MEAN CORPUSCULAR HGB CONC 34.9 g/dL (32.0-36.0); MEAN CORPUSCULAR VOLUME 93 fl (80-97); PLATELET COUNT 281 10^3/uL (150-450); RED BLOOD COUNT 3.12 10^6/uL (3.72-5.28); RED CELL DISTRIBUTION WIDTH 19.1 % (11.5-14.0); WHITE BLOOD COUNT 10.4 10^3/uL (4.0-10.5)
[2017-10-12] MEDS ORDERED: FUROSEMIDE 20 MG TABLET PO SCH (08:00)
[2017-10-12] MEDS: POLYETHYLENE GLYCOL 3350 POWDER 17 GM/1 PACKET PO SCH (09:53)
[2017-10-12] MEDS: THIAMINE HCL 100 MG TABLET PO SCH (09:54)
[2017-10-12] MEDS: SPIRONOLACTONE 25 MG TABLET PO SCH ×2 (09:54→20:38)
[2017-10-12] MEDS: DOCUSATE SODIUM 100 MG CAPSULE PO SCH (09:55)
[2017-10-12] MEDS: POTASSIUM CHLORIDE 10 MEQ CAPSULE.ER PO SCH (09:55)
[2017-10-12] MEDS: NIFEDIPINE 30 MG TAB.ER.24 PO SCH (09:56)
[2017-10-12] MEDS: RIFAXIMIN 550 MG TABLET PO SCH ×2 (09:56→17:06)
[2017-10-12] MEDS ORDERED: FERROUS SULFATE LIQUID 300 MG/5 ML UDC PO SCH (10:00)
[2017-10-12] MEDS ORDERED: LANSOPRAZOLE 15 MG TAB.RAP.DR PO SCH (10:00)
[2017-10-12] MEDS ORDERED: (PENDING PHARMACY ID) (Nifedipine [Nifedipine Er] 60 MG) PO SCH (10:00)
--- NOTE | 2017-10-12 15:01 | PDOC TRANSFER SUMMARY ---
General - Admit/Disc Date/PCP Admission Date/Primary Care Provider: 10/11/17 17:32 BILLY HUERTA PA-C Discharge Date: 10/12/17 - Discharge Diagnosis (1) Anemia Is this a current diagnosis for this admission?: Yes Summary: Status post transfusion of 2 units of packed red blood cells with the appropriate response to her hemoglobin. Her stool tested negative for occult blood. (2) Leukocytosis Is this a current diagnosis for this admission?: Yes Summary: Possibly due to underlying infection. She was having some difficulty voiding and has a cough at this time. I am going to place her on antibiotic therapy with Zithromax as well as Omnicef and she will complete a course of therapy. This should cover a potential urinary tract infection or an upper respiratory infection. Urine culture is pending. (3) Alcoholic liver disease Is this a current diagnosis for this admission?: Yes Summary: Her bilirubin when she was discharged to rehab was 12. During this hospitalization it was 6.1. Would recommend a repeat liver panel in 2 weeks. (4) Elevated bilirubin Is this a current diagnosis for this admission?: Yes Summary: Plan as above. Her bilirubin is much improved. (5) Thrombocytopenia Is this a current diagnosis for this admission?: Yes Summary: Secondary to alcoholic liver disease. Stable (6) Metabolic acidosis Is this a current diagnosis for this admission?: Yes Summary: Possibly due to underlying infection. Improving. She will complete a course of p.o. antibiotics as an outpatient. (7) Difficulty voiding Is this a current diagnosis for this admission?: Yes Summary: She will complete a course of p.o. Omnicef to cover a potential urinary tract infection. (8) Full code status Is this a current diagnosis for this admission?: Yes - Additional Information Discharge Diet: Other (Comments) - Low-sodium Discharge Activity: Activity As Tolerated, Balance Activity w/Rest, Slowly Increase Activity, Other - Resume physical therapy and occupational therapy Prescriptions: Azithromycin 500 mg PO DAILY #5 tablet Cefdinir [Omnicef 300 mg Capsule] 1 cap PO BID #14 capsule Home Medications: Ergocalciferol (Vitamin D2) [Vitamin D2] 50,000 unit PO MO@1000 10/11/17 Ferrous Sulfate [Ferosul] 220 mg PO Q2DAYS 10/11/17 Furosemide [Lasix 20 mg Tablet] 20 mg PO Q2DAYS 10/11/17 Nifedipine [Nifedipine ER] 60 mg PO DAILY 10/11/17 Omeprazole 20 mg PO DAILY 10/11/17 Polyethylene Glycol 3350 [Miralax Powder 17 gm/Packet] 1 packet PO DAILY Potassium Chloride 10 meq PO DAILY 10/11/17 Rifaximin [Xifaxan 550 mg Tablet] 550 mg PO BID 10/11/17 Spironolactone [Aldactone 25 mg Tablet] 25 mg PO Q12 10/11/17 Thiamine HCl [Thiamine 100 mg Tablet] 100 mg PO DAILY 10/11/17 Azithromycin 500 mg PO DAILY #5 tablet 10/12/17 Cefdinir [Omnicef 300 mg Capsule] 1 cap PO BID #14 capsule 10/12/17 Lansoprazole [Prevacid 30 mg Odt Tablet] 30 mg PO Q6AM tab.rap. 10/12/17 History of Present Illness Admission Date/PCP: 10/11/17 17:32 BILLY HUERTA PA-C History of Present Illness: ALCIRA MURRAY is a 72 year old female who was sent to the hospital by her primary care provider with a low hemoglobin. She has a past medical history significant for alcoholic liver disease. She still unfortunately sporadically drinks. She was recently hospitalized in this facility from 09/15 to 09/18/2017 with decompensated liver failure. Ultimately she was sent to subacute rehabilitation at discharge and had been doing fairly well. The patient had repeat labs today as an outpatient was found to have a hemoglobin of 6.1 and she was sent to the emergency room for further evaluation. Her blood counts were rechecked in the emergency room. Currently her hemoglobin is 7.2. Earlier this morning her white blood cell count was 9.0. Currently 14.3. The emergency room physician requested observation admission to transfuse the patient overnight. When I went to see her, she states that she just feels somewhat weak. She also states that she has had a cold and has a cough and is bringing up some yellow sputum. She also states that she is having difficulty voiding and at times has some burning when she voids. She states that the last time that she drank any alcohol was on Father's Day and states that she has not had anything since that time. Hospital Course Hospital Course: The patient was placed in observation in the hospital. She was transfused 2 units of packed red blood cells with the appropriate response to her hemoglobin. Urine culture is pending. The patient has remained afebrile overnight and currently is doing quite well. At this point it is felt that she can safely be discharged back to subacute rehabilitation. I will treat her for a potential urinary tract infection/upper respiratory infection as she does continue to have a little bit of a cough and some urinary symptoms. At this point maximum hospital benefit has been reached. The patient will be discharged to subacute rehabilitation today in stable condition Physical Exam Vital Signs: Temp Pulse Resp BP Pulse Ox 97.6 F 91 16 111/56 L 100 10/12/17 11:39 10/12/17 11:39 10/12/17 11:39 10/12/17 11:39 10/12/17 11:39 Intake & Output 10/11/17 10/12/17 10/13/17 06:59 06:59 06:59 Intake Total 997 Balance 997 Weight 50 kg General appearance: PRESENT: no acute distress, well-developed, well-nourished Head exam: PRESENT: atraumatic, normocephalic Ear exam: PRESENT: normal external ear exam Mouth exam: PRESENT: moist, tongue midline Respiratory exam: PRESENT: clear to auscultation roxanna. ABSENT: rales, rhonchi, wheezes Cardiovascular exam: PRESENT: RRR. ABSENT: diastolic murmur, rubs, systolic murmur GI/Abdominal exam: PRESENT: normal bowel sounds, soft. ABSENT: distended, guarding, mass, organolmegaly, rebound, tenderness Rectal exam: PRESENT: deferred Neurological exam: PRESENT: alert, awake, oriented to person, oriented to place , oriented to time, oriented to situation, CN II-XII grossly intact. ABSENT: motor sensory deficit Psychiatric exam: PRESENT: appropriate affect, normal mood. ABSENT: homicidal ideation, suicidal ideation Skin exam: PRESENT: dry, intact, warm. ABSENT: cyanosis, rash Results Laboratory Results: 10/12/17 04:00 10/12/17 04:00 10/12/17 10/12/17 10/12/17 00:31 04:00 04:00 WBC 8.9 10.4 RBC 3.03 L 3.12 L Hgb 9.7 L D 10.1 L Hct 28.0 L 29.0 L MCV 92 D 93 MCH 32.0 32.3 MCHC 34.7 34.9 RDW 18.9 H 19.1 H Plt Count 258 281 Seg Neutrophils % 80.3 H Lymphocytes % 10.9 L Monocytes % 7.5 Eosinophils % 1.0 Basophils % 0.3 Absolute Neutrophils 7.1 Absolute Lymphocytes 1.0 Absolute Monocytes 0.7 Absolute Eosinophils 0.1 Absolute Basophils 0.0 Sodium 137.0 Potassium 4.5 Chloride 109 H Carbon Dioxide 17 L Anion Gap 11 BUN 10 Creatinine 0.66 Est GFR ( Amer) > 60 Est GFR (Non-Af Amer) > 60 Glucose 80 Calcium 8.1 L Phosphorus 3.6 Magnesium 2.1 Impressions: Chest X-Ray 10/11/17 17:49 IMPRESSION: NO ACUTE RADIOGRAPHIC FINDING IN THE CHEST. Transfer Plan - Disposition Transfer Plan: She will be discharged back to her senior living facility to complete her subacute rehabilitation today in stable condition. She should follow-up with her primary care provider in 1 week - Time Spent with Patient Time spent with patient: Less than 30 Minutes Qualifiers - * PATIENT BEING DISCHARGED WITH ANY OF THE FOLLOWING DIAGNOSIS: No Plan Time Spent: Greater than 30 Minutes
--- NOTE | 2017-10-12 15:22 | Progress Note ---
Provider Note Provider Note: I discharge the patient back to subacute rehabilitation today as her hemoglobin was stable. She did complain of a little bit of a cough and some mild urinary symptoms. I was going to discharge her back on some p.o. antibiotics. Shortly after I discharged her the patient went into the bathroom and had a bowel movement. She reports some blood when she wipes. She was telling me that she has a history of hemorrhoids. She is quite nervous to go back to her half-way facility today because she is afraid that she is going to start bleeding. I have told her that we will leave her here overnight and check her blood counts in the morning. If she is stable she can be discharged first thing in the morning.
[2017-10-12] MEDS ORDERED: AZITHROMYCIN 250 MG TABLET PO ONE (15:45)
[2017-10-13 01:31] LABS: APPEARANCE,URINE SLIGHTLY-CLOUDY; BILIRUBIN,URINE NEGATIVE (NEGATIVE); COLOR,URINE AMBER; GLUCOSE, URINE NEGATIVE (NEGATIVE); KETONES,URINE NEGATIVE (NEGATIVE); LEUKOCYTE ESTERASE,URINE TRACE (NEGATIVE); NITRITE,URINE NEGATIVE (NEGATIVE); PROTEIN,URINE NEGATIVE (NEGATIVE); URINE SPECIFIC GRAVITY 1.009; UROBILINOGEN,URINE NEGATIVE mg/dL (<2.0)
[2017-10-13] MEDS: LANSOPRAZOLE 30 MG TAB.RAP.DR PO SCH (05:12)
[2017-10-13] MEDS: NIFEDIPINE 30 MG TAB.ER.24 PO SCH (09:43)
[2017-10-13] MEDS: POLYETHYLENE GLYCOL 3350 POWDER 17 GM/1 PACKET PO SCH (09:43)
[2017-10-13] MEDS: DOCUSATE SODIUM 100 MG CAPSULE PO SCH (09:43)
[2017-10-13] MEDS: POTASSIUM CHLORIDE 10 MEQ CAPSULE.ER PO SCH (09:43)
[2017-10-13] MEDS: RIFAXIMIN 550 MG TABLET PO SCH (09:44)
[2017-10-13] MEDS: SPIRONOLACTONE 25 MG TABLET PO SCH (09:44)
[2017-10-13] MEDS: THIAMINE HCL 100 MG TABLET PO SCH (09:44)
[2017-10-13] MEDS ORDERED: FERROUS SULFATE 220 MG PO SCH (10:00)
[2017-10-13 10:09] LABS: HEMATOCRIT 31.9 % (36.0-47.0); HEMOGLOBIN 10.8 g/dL (12.0-15.5); MEAN CORPUSCULAR HEMOGLOBIN 32.2 pg (27.0-33.4); MEAN CORPUSCULAR VOLUME 95 fl (80-97); PLATELET COUNT 276 10^3/uL (150-450); RED BLOOD COUNT 3.36 10^6/uL (3.72-5.28); RED CELL DISTRIBUTION WIDTH 18.7 % (11.5-14.0); WHITE BLOOD COUNT 10.9 10^3/uL (4.0-10.5)
[2017-10-13 12:25] VITALS: BP 119/61
[2017-10-16] MEDS ORDERED: ERGOCALCIFEROL (VITAMIN D2) 50000 UNIT (1.25 MG) CAPSULE PO SCH (10:00)
== END 2017-10-13 16:20 ==
LOC: ER 14:10 → EH 17:32 → 5 19:44
PROVIDERS: ADMIT Internal Medicine; ATTEND Internal Medicine
PROC: 30233N1 Transfusion of Nonautologous Red Blood Cells into Peripheral Vein, Percutaneous Approach (ICD-10-PCS; principal; 2017-10-11)
DX: D53.9 Nutritional anemia, unspecified (principal); D72.829 Elevated white blood cell count, unspecified; R05 Cough; K70.9 Alcoholic liver disease, unspecified; R39.198 Other difficulties with micturition; E80.7 Disorder of bilirubin metabolism, unspecified; D69.6 Thrombocytopenia, unspecified; E87.2 Acidosis; R30.0 Dysuria; R68.83 Chills (without fever); K62.5 Hemorrhage of anus and rectum; K64.4 Residual hemorrhoidal skin tags; R53.1 Weakness; Z79.899 Other long term (current) drug therapy; Z90.49 Acquired absence of other specified parts of digestive tract; Z82.49 Family history of ischemic heart disease and other diseases of the circulatory system; Z90.3 Acquired absence of stomach [part of]; Z87.891 Personal history of nicotine dependence
CPT/HCPCS: 99285; 86900; 86901; 36415 ×3; 87086; 36430; 86850; 80307; 83690; 83735; 84100; 85025 ×2; 85027 ×2; 85610; 85730; 82272; 87088; 80076; 80048 ×2; 81001; 87186; 86920; 71046; 97110 ×2; 97116 ×2; 97163; P9016; A9270 ×18; J3490 ×5; J7050; G8978; G8979

== ENCOUNTER → 2017-12-01 | Outpatient (CLI) | payer MEDICARE, OTHER ==
[2017-12-01 16:18] LABS: HEMATOCRIT 29.1 % (36.0-47.0); HEMOGLOBIN 9.7 g/dL (12.0-15.5); MEAN CORPUSCULAR HGB CONC 33.4 g/dL (32.0-36.0); MEAN CORPUSCULAR VOLUME 90 fl (80-97); PLATELET COUNT 318 10^3/uL (150-450); RED BLOOD COUNT 3.23 10^6/uL (3.72-5.28); RED CELL DISTRIBUTION WIDTH 15.7 % (11.5-14.0); WHITE BLOOD COUNT 7.8 10^3/uL (4.0-10.5)
[2017-12-01 16:39] LABS: ALANINE AMINOTRANSFERASE 28 U/L (9-52); ALBUMIN 2.3 g/dL (3.5-5.0); ALKALINE PHOSPHATASE 135 U/L (38-126); ANION GAP 12 (5-19); ASPARTATE AMINO TRANSFERASE 45 U/L (14-36); BILIRUBIN,DIRECT 1.7 mg/dL (0.0-0.4); BILIRUBIN,TOTAL 2.3 mg/dL (0.2-1.3); BLOOD UREA NITROGEN 19 mg/dL (7-20); CARBON DIOXIDE 15 mmol/L (22-30); CHLORIDE 109 mmol/L (98-107); GLUCOSE 98 mg/dL (75-110); POTASSIUM 3.9 mmol/L (3.6-5.0); SODIUM 135.9 mmol/L (137-145); TOTAL PROTEIN 6.6 g/dL (6.3-8.2)
[2017-12-01 16:41] LABS: INTERNATIONAL RATION (INR) 1.48; PROTHROMBIN TIME 18.7 SEC (11.4-15.4)
== END ==
LOC: LAB 15:29
PROVIDERS: ATTEND Internal Medicine Gastroenterology
DX: K74.69 Other cirrhosis of liver (principal)
CPT/HCPCS: 36415; 80048; 80076; 82105; 85027; 85610

== ENCOUNTER 2017-12-15 11:02 | Inpatient (IN) | payer MEDICARE, OTHER ==
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
[2017-12-15 12:07] LABS: ABSOLUTE EOSINOPHILS # (AUTO) 0.2 10^3/uL (0.0-0.6); ABSOLUTE MONOCYTES (AUTO) 0.9 10^3/uL (0.1-1.4); ABSOLUTE NEUT (AUTO) 13.5 10^3/uL (1.7-8.2); BASOPHILS % (AUTO) 0.1 % (0-2); EOSINOPHILS % (AUTO) 1.4 % (0-6); HEMATOCRIT 25.9 % (36.0-47.0); HEMOGLOBIN 8.7 g/dL (12.0-15.5); LYMPHOCYTES % (AUTO) 6.3 % (13-45); MEAN CORPUSCULAR HEMOGLOBIN 30.1 pg (27.0-33.4); MEAN CORPUSCULAR HGB CONC 33.7 g/dL (32.0-36.0); MEAN CORPUSCULAR VOLUME 89 fl (80-97); MONOCYTES % (AUTO) 5.8 % (3-13); PLATELET COUNT 188 10^3/uL (150-450); RED CELL DISTRIBUTION WIDTH 15.9 % (11.5-14.0); SEGMENTED NEUTROPHILS % (AUTO) 86.4 % (42-78); TOTAL CELLS COUNTED % (AUTO) 100 %; WHITE BLOOD COUNT 15.6 10^3/uL (4.0-10.5)
[2017-12-15 12:35] LABS: ALANINE AMINOTRANSFERASE 23 U/L (9-52); ALBUMIN 1.8 g/dL (3.5-5.0); ALKALINE PHOSPHATASE 147 U/L (38-126); ANION GAP 15 (5-19); ASPARTATE AMINO TRANSFERASE 30 U/L (14-36); BILIRUBIN,DIRECT 2.4 mg/dL (0.0-0.4); BILIRUBIN,TOTAL 2.8 mg/dL (0.2-1.3); BLOOD UREA NITROGEN 36 mg/dL (7-20); CALCIUM 7.5 mg/dL (8.4-10.2); CARBON DIOXIDE 13 mmol/L (22-30); CHLORIDE 105 mmol/L (98-107); CREATINE KINASE 20 U/L (30-135); GLUCOSE 65 mg/dL (75-110); POTASSIUM 4.8 mmol/L (3.6-5.0); SODIUM 132.9 mmol/L (137-145); TOTAL PROTEIN 5.6 g/dL (6.3-8.2)
[2017-12-15] MEDS ORDERED: NORMAL SALINE 250 ML IV PRN (13:34)
[2017-12-15 14:03] LABS: APPEARANCE,URINE CLOUDY; BILIRUBIN,URINE SMALL (NEGATIVE); COLOR,URINE AMBER; GLUCOSE, URINE 50 mg/dL (NEGATIVE); KETONES,URINE NEGATIVE (NEGATIVE); LEUKOCYTE ESTERASE,URINE NEGATIVE (NEGATIVE); NITRITE,URINE NEGATIVE (NEGATIVE); PROTEIN,URINE 100 mg/dL (NEGATIVE); URINE SPECIFIC GRAVITY 1.016
[2017-12-15 14:09] LABS: PROTHROMBIN TIME 24.5 SEC (11.4-15.4)
[2017-12-15] MEDS ORDERED: GLUCAGON,HUMAN RECOMB 1 MG INJ SUBCUT PRN (14:27)
[2017-12-15] MEDS ORDERED: ONDANSETRON 4 MG TAB.RAPDIS PO PRN (14:27)
[2017-12-15] MEDS ORDERED: DEXTROSE 40% GEL 15 GM TUBE PO PRN ×2 (14:27)
[2017-12-15] MEDS ORDERED: DEXTROSE 50%-WATER 25 GM/50 ML DISP.SYRIN IV PRN ×2 (14:27)
[2017-12-15] MEDS ORDERED: ACETAMINOPHEN 325 MG TABLET PO PRN (14:27)
[2017-12-15] MEDS ORDERED: NORMAL SALINE 1000 ML 1,000 ML IV ONE (16:03)
[2017-12-15 16:33] LABS: URINE CREATININE 195.1 mg/dL (15-278)
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
[2017-12-15] MEDS ORDERED: CEFTRIAXONE 2 GM/D5W RTU 2 GM/50 ML RTUPB IV SCH (19:00)
[2017-12-15] MEDS: CEFTRIAXONE SODIUM 2,000 MG in NORMAL SALINE 100 ML IV SCH (22:55)
--- NOTE | 2017-12-15 23:19 | RADIOLOGY REPORT (SQ) ---
EXAM DESCRIPTION: CT ABDOMEN PELVIS WITHOUT IV CONTRAST COMPLETED DATE/TME: 12/15/2017 00:00 CLINICAL HISTORY: 72 years, Female, abdominal pain. hx liver disease This exam was performed according to our departmental dose-optimization program which includes automated exposure control, adjustment of the mA and/or kVp according to patient size and/or use of iterative reconstruction technique where applicable. Findings: Visualized lung bases demonstrate moderate layering left pleural effusion and small right pleural effusion. Large amount of abdominal ascites. Liver, spleen, pancreas, adrenal glands and kidneys are within normal limits. No biliary dilatation. No dilated loops of bowel to suggest obstruction. Mild amount of stool in the colon. IMPRESSION: Large amount of abdominal ascites. Findings consistent hepatic cirrhosis.
[2017-12-16 05:44] LABS: INTERNATIONAL RATION (INR) 1.84; PROTHROMBIN TIME 22.1 SEC (11.4-15.4)
[2017-12-16 05:45] LABS: PARTIAL THROMBOPLASTIN TIME 56.6 SEC (23.5-35.8)
[2017-12-16 06:11] LABS: ALANINE AMINOTRANSFERASE 26 U/L (9-52); ALBUMIN 1.8 g/dL (3.5-5.0); ALKALINE PHOSPHATASE 157 U/L (38-126); ANION GAP 15 (5-19); ASPARTATE AMINO TRANSFERASE 37 U/L (14-36); BILIRUBIN,DIRECT 4.8 mg/dL (0.0-0.4); BLOOD UREA NITROGEN 38 mg/dL (7-20); CALCIUM 7.4 mg/dL (8.4-10.2); CARBON DIOXIDE 12 mmol/L (22-30); CHLORIDE 106 mmol/L (98-107); GLUCOSE 82 mg/dL (75-110); IRON(TIBC) 45.1 ug/dL (37-170); SODIUM 133.4 mmol/L (137-145); TOTAL PROTEIN 5.4 g/dL (6.3-8.2); TRIGLYCERIDES 66 mg/dL (<150)
[2017-12-16 06:16] LABS: ABSOLUTE RETICS # 0.087 10^6/uL (0.028-0.122); HEMOGLOBIN 9.9 g/dL (12.0-15.5); MEAN CORPUSCULAR HEMOGLOBIN 30.3 pg (27.0-33.4); MEAN CORPUSCULAR HGB CONC 35.4 g/dL (32.0-36.0); MEAN CORPUSCULAR VOLUME 86 fl (80-97); PLATELET COUNT 174 10^3/uL (150-450); RED BLOOD COUNT 3.26 10^6/uL (3.72-5.28); RETICULOCYTE COUNT (AUTO) 2.66 % (0.66-2.85); WHITE BLOOD COUNT 12.5 10^3/uL (4.0-10.5)
[2017-12-16 07:17] LABS: FOLATE 9.29 ng/mL (>2.76)
[2017-12-16 07:35] LABS: CHOLESTEROL < 50.00 mg/dL (0-200); DIRECT LDL < 30 mg/dL (<100)
[2017-12-16 07:50] LABS: BILIRUBIN,TOTAL 5.5 mg/dL (0.2-1.3)
[2017-12-16] MEDS ORDERED: FERROUS SULFATE 220 MG PO SCH (08:45)
[2017-12-16] MEDS ORDERED: FUROSEMIDE 20 MG TABLET PO SCH (09:00)
[2017-12-16] MEDS ORDERED: FERROUS SULFATE LIQUID 300 MG/5 ML UDC NG SCH (09:00)
[2017-12-16] MEDS ORDERED: LANSOPRAZOLE 15 MG TAB.RAP.DR PO SCH (10:00)
[2017-12-16] MEDS ORDERED: POTASSIUM CHLORIDE 8 MEQ PO SCH (10:00)
[2017-12-16] MEDS ORDERED: THIAMINE HCL 100 MG TABLET PO SCH (10:00)
[2017-12-16] MEDS ORDERED: SPIRONOLACTONE 25 MG TABLET PO SCH (10:00)
[2017-12-16] MEDS ORDERED: (PENDING PHARMACY ID) (Nifedipine [Procardia Xl 60 Mg Tablet] 60 MG) PO SCH (10:00)
[2017-12-16] MEDS: NIFEDIPINE 30 MG TAB.ER.24 PO SCH (10:32)
[2017-12-16] MEDS ORDERED: FERROUS SULFATE 325 MG TABLET PO SCH (11:00)
[2017-12-16] MEDS ORDERED: LACTULOSE SYRUP 20 GM/30 ML UDCUP PO SCH (11:30)
--- NOTE | 2017-12-16 12:40 | EKG REPORT ---
SEVERITY:- OTHERWISE NORMAL ECG - SINUS RHYTHM LOW VOLTAGE IN FRONTAL LEADS : Confirmed by: Marcy Angeles MD 16-Dec-2017 12:39:08
[2017-12-16] MEDS: LACTULOSE SYRUP 20 GM/30 ML UDCUP PO SCH ×2 (15:57→19:08)
[2017-12-16] MEDS ORDERED: MORPHINE SULFATE 10 MG/ML INJ IV PRN (17:39)
[2017-12-16] MEDS ORDERED: MORPHINE SULFATE 10 MG/ML INJ ONE (17:42)
[2017-12-16] MEDS ORDERED: PHARMACY COMMUNICATION ORDER MC NR (17:45)
[2017-12-16] MEDS ORDERED: FUROSEMIDE 20 MG TABLET NG SCH (18:30)
[2017-12-16] MEDS ORDERED: ONDANSETRON 4 MG TAB.RAPDIS NG PRN (18:30)
--- NOTE | 2017-12-16 19:16 | PDOC PROGRESS REPORT ---
Subjective Progress Note for:: 12/16/17 Subjective:: ALCIRA MURRAY I is a 72 year old female with a PMH of alcoholic liver cirrhosis , anemia, GERD. She presents to [facility] with a chief complaint of weakness and abdominal pain. Admit to hospitalist service for weakness and anemia workup. Started on Ceftriaxone for coverage of UTI and possible SBP. Plan for CT Abd/Pelvis with PO and IV contrast. The patient was seen this afternoon on rounds, she is resting comfortably in bed. She is oriented to self and place, disoriented to situation and time. She is able to answer most questions appropriately, but often drifts off to sleep in between questioning. PERRLA. Able to move all extremities but strength is 4/5. (+) Scleral icterus.(+) Jaundice. Mild abdominal distention with RLQ and LLQ tenderness. (+) BS. S1-S2. (+) Systolic murmur. Patient denies history of congestive heart failure, has never been told she has a heart murmur. The patient's mental status is a significant change from yesterday when she was able to carry on a full conversation. The patient's vital signs remained stable , she is afebrile, does not exhibit signs or symptoms of respiratory distress. Her decline in mental status is likely related to her liver failure and elevated ammonia level. Initiated lactulose 3 times daily today. Additionally, Paracentesis scheduled for tomorrow afternoon. Monitor closely. ECHOcardiogram ordered for evaluation of new CHF. Consider upgrading level of care if patient continues to decline. Reason For Visit: TOM, ANEMIA CIRRHOSIS Physical Exam Vital Signs: Temp Pulse Resp BP Pulse Ox 97.3 F 110 H 15 106/65 100 12/16/17 15:52 12/16/17 15:52 12/16/17 15:52 12/16/17 15:52 12/16/17 15:52 Intake & Output 12/15/17 12/16/17 12/17/17 06:59 06:59 06:59 Intake Total 1400 Balance 1400 Weight 57.2 kg General appearance: PRESENT: no acute distress, thin Head exam: PRESENT: atraumatic Eye exam: PRESENT: conjunctiva pink, PERRLA, scleral icterus Mouth exam: PRESENT: moist Neck exam: PRESENT: full ROM Respiratory exam: PRESENT: clear to auscultation roxanna, symmetrical, unlabored Cardiovascular exam: PRESENT: +S1, +S2, systolic murmur - PATIENT DENIES BEING EVER TOLD ABOUT A HEART MURMUR Pulses: PRESENT: normal radial pulses, normal dorsalis pedis pul Vascular exam: PRESENT: normal capillary refill GI/Abdominal exam: PRESENT: distended, normal bowel sounds, soft, tenderness - LOWE ABDOMEN Rectal exam: PRESENT: deferred Extremities exam: PRESENT: full ROM, pedal edema, +1 edema - BILATERAL LOWER EXTREMITIES Musculoskeletal exam: PRESENT: ambulatory, full ROM. ABSENT: normal inspection Neurological exam: PRESENT: alert, awake, oriented to person, oriented to place , other - SLOW TO RESPOND TO QUESTIONS. OFTEN CLOSES EYES AND FALLS ASLEEP IN BETWEEN QUESTIONING Psychiatric exam: ABSENT: appropriate affect Skin exam: PRESENT: dry, intact, jaundice, pallor, warm Results Laboratory Results: 12/16/17 05:23 12/16/17 05:23 12/16/17 12/16/17 12/16/17 05:23 05:23 05:23 WBC 12.5 H RBC 3.26 L Hgb 9.9 L Hct 28.0 L MCV 86 MCH 30.3 MCHC 35.4 RDW 16.0 H Plt Count 174 Retic Count (auto) 2.66 Absolute Retic 0.087 Sodium 133.4 L Potassium 5.0 Chloride 106 Carbon Dioxide 12 L Anion Gap 15 BUN 38 H Creatinine 4.40 H Est GFR ( Amer) 12 L Est GFR (Non-Af Amer) 10 L Glucose 82 Calcium 7.4 L Magnesium 2.2 Iron 45.1 TIBC 100 L % Saturation 45 Ferritin 1090.00 H Total Bilirubin 5.5 H D AST 37 H ALT 26 Alkaline Phosphatase 157 H Ammonia 110.5 H Total Protein 5.4 L Albumin 1.8 L Triglycerides 66 Cholesterol < 50.00 LDL Cholesterol Direct < 30 VLDL Cholesterol 13.0 HDL Cholesterol 11 L Vitamin B12 > 1000.0 H Folate 9.29 12/16/17 05:23 NT-Pro-B Natriuret Pep 8020 H Impressions: Abdomen/Pelvis CT 12/15/17 00:00 IMPRESSION: Large amount of abdominal ascites. Findings consistent hepatic cirrhosis. Status: Imported from PACS Assessment & Plan - Diagnosis (1) Anemia Qualifiers: Anemia type: unspecified type Qualified Code(s): D64.9 - Anemia, unspecified Is this a current diagnosis for this admission?: Yes Plan: Unclear etiology of anemia at this time - possibilities include end stage liver disease, GI bleed, malnutrition or (less likely) malignancy Hgb 8.7 transfused 1U PRBC by ED MD. Posttransfusion CBC reveals appropriate Hgb response No evidence of bleeding - no melena or bloody vomit, guiac pending Plan for anemia studies in a.m. CT Abd/Pelvis only shows ascites, no evidence of malignancy or other significant pathology (2) Abdominal pain Qualifiers: Abdominal location: lower abdomen, unspecified Qualified Code(s): R10.30 - Lower abdominal pain, unspecified Is this a current diagnosis for this admission?: Yes Plan: Likely secondary to liver disease Currently waiting for appt. with Dr. Monet CT Abd/Pelvis only shows ascites, no evidence of malignancy PRN IV Morphine for pain control (3) Alcoholic cirrhosis of liver with ascites Is this a current diagnosis for this admission?: Yes Plan: History of ETOH cirrhosis of liver No evidence of transaminitis Ammonia 110 Initiate PO lactulose MELD score 32.39 associated with 83% mortality Patient aware of grim prognosis, wishes to pursue all available treatment modalities (4) Leukocytosis Is this a current diagnosis for this admission?: Yes Plan: Improving. WBC 15.6-->2.5 Afebrile Unclear etiology Possibilities include - SBP, UTI, colitis Urine culture pending Stool studies ordered SBP possible given s/s of hypotension, abdominal pain and tenderness. Continue ceftriaxone 2 g IV daily, double coverage for UTI and possible SBP. Plan for abdominal paracentesis and ascites. Unfortunately, the earliest available time is tomorrow at noon (almost 36hrs after patient has been receiving antibiotics) (5) Weight loss, non-intentional Is this a current diagnosis for this admission?: Yes Plan: Patient reports approx. 30lb unintentional weight loss since Mar 2017 Likely secondary to rapidly progressing liver disease CT Abd/Pelvis only shows ascites, no evidence of malignancy (6) CHF (congestive heart failure) Qualifiers: Heart failure chronicity: unspecified Is this a current diagnosis for this admission?: Yes Plan: Patient denies history of congestive heart failure BNP >8000 New systolic murmur EKG shows NSR, no evidence of acute infarction or ischemia Will check cardiac enzymes Cardiology consulted Plan for STAT ECHOcardiogram - Time Time Spent with patient: 15-24 minutes Medications reviewed and adjusted accordingly: Yes - Inpatient Certification Based on my medical assessment, after consideration of the patient's comorbidities, presenting symptoms, or acuity I expect that the services needed warrant INPATIENT care.: Yes I certify that my determination is in accordance with my understanding of Medicare's requirements for reasonable and necessary INPATIENT services [42 CFR 412.3e].: Yes Medical Necessity: Need for Nebulizer Therapy and Monitoring of Response, Need for IV Antibiotics, Risk of Complication if Not Cared For in Hospital
--- NOTE | 2017-12-16 22:49 | RADIOLOGY REPORT (SQ) ---
EXAM DESCRIPTION: CT brain without contrast. December 16, 2017 at 10:15 PM CLINICAL HISTORY: Altered mental status COMPARISON: None Available. TECHNIQUE: Contiguous axial images of the brain were obtained without the administration of intravenous contrast.This exam was performed according to our departmental dose-optimization program, which includes automated exposure control, adjustment of the mA and/or kV according to patient size and/or use of iterative reconstruction technique. FINDINGS: There is no acute intracranial hemorrhage or mass effect. Areas of low attenuation in the periventricular and subcortical white matter are nonspecific but suggestive of small vessel disease. There is generalized atrophy. Ventricular system is within normal limits. There is adequate guillory-white matter differentiation. There is no skull fracture. Lobular opacities within the left maxillary sinus may represent mucoid retention cyst/chronic sinusitis changes. There is an NGT partially visualized. IMPRESSION: No acute intracranial abnormalities.
--- NOTE | 2017-12-16 23:16 | RADIOLOGY REPORT (SQ) ---
EXAM DESCRIPTION: XR ABDOMEN 1 VIEW (KUB) COMPLETED DATE/TME: 12/16/2017 17:41 CLINICAL HISTORY: 72 years, Female, Check Placement of NG Tube COMPARISON: None. EXAM DESCRIPTION: CLINICAL HISTORY: Check Placement of NG Tube COMPARISON: None. FINDINGS: Single supine view of the abdomen was submitted. NG tube tip is likely in the proximal duodenum. Residual contrast is in loops of nondilated bowel. A few loops of mildly dilated gas-filled bowel are present. This could reflect mild ileus. Early or partial obstruction are less likely. IMPRESSION: NG tube tip is likely in the proximal small bowel.
[2017-12-17] MEDS: CEFTRIAXONE SODIUM 2,000 MG in NORMAL SALINE 100 ML IV SCH (00:24)
[2017-12-17] MEDS: SPIRONOLACTONE 25 MG TABLET NG SCH ×2 (00:24→10:14)
[2017-12-17] MEDS ORDERED: LACTULOSE SYRUP 20 GM/30 ML UDCUP NG ONE (03:00)
[2017-12-17] MEDS ORDERED: LANSOPRAZOLE 15 MG TAB.RAP.DR NG SCH (06:00)
[2017-12-17 06:43] LABS: HEMATOCRIT 28.9 % (36.0-47.0); HEMOGLOBIN 9.8 g/dL (12.0-15.5); MEAN CORPUSCULAR HEMOGLOBIN 29.5 pg (27.0-33.4); MEAN CORPUSCULAR HGB CONC 33.9 g/dL (32.0-36.0); MEAN CORPUSCULAR VOLUME 87 fl (80-97); PLATELET COUNT 195 10^3/uL (150-450); RED BLOOD COUNT 3.31 10^6/uL (3.72-5.28); RED CELL DISTRIBUTION WIDTH 15.7 % (11.5-14.0); WHITE BLOOD COUNT 10.5 10^3/uL (4.0-10.5)
[2017-12-17 06:46] LABS: INTERNATIONAL RATION (INR) 1.78; PROTHROMBIN TIME 21.5 SEC (11.4-15.4)
[2017-12-17 07:22] LABS: ALANINE AMINOTRANSFERASE 29 U/L (9-52); ALBUMIN 1.9 g/dL (3.5-5.0); ASPARTATE AMINO TRANSFERASE 51 U/L (14-36); BILIRUBIN,DIRECT 4.2 mg/dL (0.0-0.4); BILIRUBIN,TOTAL 4.9 mg/dL (0.2-1.3); BLOOD UREA NITROGEN 43 mg/dL (7-20); CALCIUM 7.7 mg/dL (8.4-10.2); CHLORIDE 106 mmol/L (98-107); GLUCOSE 109 mg/dL (75-110); POTASSIUM 5.1 mmol/L (3.6-5.0); SODIUM 132.8 mmol/L (137-145); TOTAL PROTEIN 5.6 g/dL (6.3-8.2)
[2017-12-17 07:23] LABS: CREATINE KINASE < 20 U/L (30-135)
[2017-12-17 07:32] LABS: CREATINE KINASE MB 0.59 ng/mL (<4.55); NT PRO BNP 7990 pg/mL (5-900)
[2017-12-17 07:33] LABS: TROPONIN I < 0.012 ng/mL
[2017-12-17 07:44] LABS: ALKALINE PHOSPHATASE 216 U/L (38-126)
[2017-12-17 07:53] LABS: ANION GAP 15 (5-19)
[2017-12-17 07:55] LABS: CARBON DIOXIDE 12 mmol/L (22-30)
[2017-12-17] MEDS ORDERED: ALBUMIN HUMAN 12.5 GM/50 ML RTUINJ IV SCH ×2 (09:15→10:30)
[2017-12-17] MEDS ORDERED: LACTULOSE SYRUP 20 GM/30 ML UDCUP NG SCH ×2 (10:00)
[2017-12-17] MEDS ORDERED: THIAMINE HCL 100 MG TABLET NG SCH (10:00)
--- NOTE | 2017-12-17 10:00 | XCELERA REPORT ---
[address] [address] Transthoracic Echocardiogram Report Name: ALCIRA MURRAY I Age: 72 yrs Gender: Female : 1945 Patient Status: Inpatient Patient Location: [address] [place], [place] [address] Study Date: 12/16/2017 05:17 PM Height: 67 in Weight: 126 lb BSA: 1.7 m2 Procedure: A complete two-dimensional transthoracic echocardiogram was performed (2D, M-mode, spectral and color flow Doppler). The study was technically difficult with many images being suboptimal in quality. Reason For Study: new CHF Ordering Physician: ERICKA BHATIA Performed By: Urban Madrigal Interpretation Summary The left ventricular ejection fraction is preserved. Consider additional methods to assess LVEF such as MUGA scan, CTA heart, cardiac MRI, GONZALO, etc. if clinically indicated. The left ventricle is grossly normal size. There is normal left ventricular wall thickness. Doppler measurements suggest pseudonormalized left ventricular relaxation, which is associated with grade II/IV or mild to moderate diastolic dysfunction Regional wall motion abnormalities cannot be excluded due to limited visualization. The right ventricle is mildly dilated. The right ventricular systolic function is normal. The right atrium is normal in size The left atrium is mildly dilated. There is no mitral valve stenosis. There is a trace amount of mitral regurgitation There is no aortic valve stenosis No aortic regurgitation is present. There is a trace or physiologic amount of tricuspid regurgitation Tricuspid regurgitation jet envelope not well defined to measure RV systolic pressure accurately. The aortic root is not well visualized. The inferior vena cava was not well visualized There is no pericardial effusion. MMode/2D Measurements & Calculations RVDd: 2.3 cm LVIDd: 4.4 cm FS: 43.4 % Ao root diam: 2.9 cm IVSd: 0.87 cm LVIDs: 2.5 cm EDV(Teich): 87.7 ml Ao root area: 6.5 cm2 LVPWd: 0.80 cm ESV(Teich): 22.1 ml LA dimension: 3.4 cm EF(Teich): 74.8 % Doppler Measurements & Calculations MV E max yelena: MV P1/2t max yelena: Ao V2 max: LV V1 max P.1 cm/sec 82.5 cm/sec 148.2 cm/sec 4.2 mmHg MV A max yelena: MV P1/2t: 42.6 msec Ao max PG: LV V1 max: 99.7 cm/sec MVA(P1/2t): 5.2 cm2 8.8 mmHg 102.0 cm/sec MV E/A: 0.73 MV dec slope: 567.9 cm/sec2 MV dec time: 0.29 sec TR max yelena: MV P1/2t-pr_phl: 248.4 cm/sec 42.6 msec TR max P.7 mmHg Left Ventricle The left ventricle is grossly normal size. There is normal left ventricular wall thickness. The left ventricular ejection fraction is preserved. Consider additional methods to assess LVEF such as MUGA scan, CTA heart, cardiac MRI, GONZALO, etc. if clinically indicated. Doppler measurements suggest pseudonormalized left ventricular relaxation, which is associated with grade II/IV or mild to moderate diastolic dysfunction. Regional wall motion abnormalities cannot be excluded due to limited visualization. Right Ventricle The right ventricle is mildly dilated. The right ventricular systolic function is normal. Atria The right atrium is normal in size. The left atrium is mildly dilated. Interarterial septum not well visualized and not well dopplered. Cannot comment on ASD/PFO presence. Mitral Valve The mitral valve is grossly normal. There is no mitral valve stenosis. There is a trace amount of mitral regurgitation. Aortic Valve The aortic valve is not well visualized secondary to technical limitations. There is no aortic valve stenosis. No aortic regurgitation is present. Tricuspid Valve The tricuspid valve is not well visualized, but is grossly normal. There is no tricuspid stenosis. There is a trace or physiologic amount of tricuspid regurgitation. Tricuspid regurgitation jet envelope not well defined to measure RV systolic pressure accurately. Pulmonic Valve The pulmonic valve is not well visualized. Great Vessels The aortic root is not well visualized. The inferior vena cava was not well visualized. Effusions There is no pericardial effusion. : ERICKA BHATIA > Bobby Tang
[2017-12-17] MEDS: LACTULOSE SYRUP 20 GM/30 ML UDCUP NG SCH ×3 (10:14→19:04)
[2017-12-17] MEDS: NIFEDIPINE 30 MG TAB.ER.24 PO SCH (10:43)
[2017-12-17] MEDS ORDERED: AMLODIPINE BESYLATE 10 MG TABLET NG SCH (11:30)
[2017-12-17] MEDS ORDERED: OCTREOTIDE ACETATE INJ/PF 100 MCG/1 ML SDV SUBCUT SCH (12:00)
[2017-12-17] MEDS: ALBUMIN HUMAN 12.5 GM/50 ML RTUINJ IV SCH ×6 (12:17→20:18)
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
--- NOTE | 2017-12-17 12:35 | PDOC PROGRESS REPORT ---
Subjective Progress Note for:: 12/17/17 Subjective:: Patient seems to be worse with worsening renal, hepatic failure. Currently very obtunded. System review: No significant changes Medications reviewed. Reason For Visit: TOM, ANEMIA CIRRHOSIS Physical Exam Vital Signs: Temp Pulse Resp BP Pulse Ox 97.4 F 88 16 101/56 L 99 12/17/17 11:24 12/17/17 11:24 12/17/17 11:24 12/17/17 11:24 12/17/17 11:24 Intake & Output 12/16/17 12/17/17 12/18/17 06:59 06:59 06:59 Intake Total 1400 0 50 Balance 1400 0 50 Weight 57.2 kg 55.3 kg Exam: GENERAL: Patient is cachectic and is obtunded. NECK: supple without lymphadenopathy or JVD. Trachea is central. No cervical or axillary lymphadenopathy noted. Carotids are 2+ LUNGS: Breath sounds bibasilar fine crackles at bases. No significant dullness noted. CHEST: Palpation of chest wall shows no significant chest wall tenderness. HEART: [place] [employer], No PSH, 2/6 HEATHER aortic area, 1/6 dorantes systolic murmur mitral area, rubs or gallops. ABDOMEN: Soft, no significant tenderness appreciated, normoactive bowel sounds. No guarding, no rebound. No rigidity noted . No masses appreciated. EXTREMITIES: Pedal pulses are 1-2+, no calf tenderness noted, 1+ pedal edema noted. No clubbing or cyanosis. NEUROLOGICAL: Obtunded, neurological exam cannot be performed PSYCH: Psych exam not performed due to patient's current mental status. SKIN: No significant ecchymosis, rash, ulcerations or signs of pruritus noted. MUSCULOSKELETAL EXAM: No significant joint swelling noted. Results Laboratory Results: 12/17/17 06:21 12/17/17 06:21 12/17/17 12/17/17 12/17/17 06:21 06:21 06:21 WBC 10.5 RBC 3.31 L Hgb 9.8 L Hct 28.9 L MCV 87 MCH 29.5 MCHC 33.9 RDW 15.7 H Plt Count 195 Sodium 132.8 L Potassium 5.1 H Chloride 106 Carbon Dioxide 12 L Anion Gap 15 BUN 43 H Creatinine 5.50 H Est GFR ( Amer) 9 L Est GFR (Non-Af Amer) 8 L Glucose 109 Calcium 7.7 L Total Bilirubin 4.9 H AST 51 H ALT 29 Alkaline Phosphatase 216 H Ammonia 142.4 H Total Protein 5.6 L Albumin 1.9 L 12/16/17 12/17/17 12/17/17 05:23 06:21 06:21 Creatine Kinase < 20 L CK-MB (CK-2) 0.59 Troponin I < 0.012 NT-Pro-B Natriuret Pep 8020 H 7990 H Impressions: Abdomen/Pelvis CT 12/15/17 00:00 IMPRESSION: Large amount of abdominal ascites. Findings consistent hepatic cirrhosis. KUB X-Ray 12/16/17 17:41 IMPRESSION: NG tube tip is likely in the proximal small bowel. Head CT 12/16/17 18:19 IMPRESSION: No acute intracranial abnormalities. Assessment & Plan - Diagnosis (1) Elevated brain natriuretic peptide (BNP) level Is this a current diagnosis for this admission?: Yes (2) Alcoholic cirrhosis of liver with ascites Is this a current diagnosis for this admission?: Yes (3) Weight loss, non-intentional Is this a current diagnosis for this admission?: Yes (4) Hepatic failure Qualifiers: Liver failure chronicity: unspecified chronicity Hepatic coma status: with hepatic coma Qualified Code(s): K72.91 - Hepatic failure, unspecified with coma Is this a current diagnosis for this admission?: Yes (5) Renal failure Qualifiers: Renal failure chronicity: unspecified chronicity Qualified Code(s): N19 - Unspecified kidney failure Is this a current diagnosis for this admission?: Yes (6) CHF (congestive heart failure) Qualifiers: Heart failure type: diastolic Heart failure chronicity: unspecified Qualified Code(s): I50.30 - Unspecified diastolic (congestive) heart failure Is this a current diagnosis for this admission?: Yes - Notes Notes: Patient general condition seems to have worsened. CT of the head was negative. Elevated BNP: Possibly multifactorial due to renal failure, hepatic failure, possible some right-sided CHF. At this point patient does have some relative contraindication for diuretic therapy due to both hepatic and renal failure. CHF: Possibly diatolic. 2D echo shows relatively well-preserved RV and LVEF but the study was technically difficult. Patient has poor prognosis with advanced renal and liver failure and these are felt to be primary problems. Hepatic failure: Patient noted to have low albumin, elevated INR, agree with albumin infusion, may choose to follow with IV Lasix at low dose. Recommend GI evaluation Renal failure: This is quite advanced and possibly patient could well be uremic. May consider nephrology evaluation. Unintentional weight loss: Possibly related to metabolic reasons but cannot rule out malignancy. Patient's overall prognosis is noted to be poor. Recommend reassessment of CODE STATUS, patient prognosis seems to be deteriorating. May involve neurologist and GI specialist in care of this patient. - Time Time with patient: Greater than 35 minutes - CODE STATUS was discussed, patient remains full code. Surrogate decision-maker unchanged. Multiple medical problems were addressed. More than 50% of the time spent coordinating care, discussing management plans with involved caregivers. Management plans discussed with involved personnels. Medical decision making was of moderate to high complexity, patient's has multiple comorbidities. Medications reviewed and adjusted accordingly: Yes
--- NOTE | 2017-12-17 14:26 | RADIOLOGY REPORT (SQ) ---
EXAM DESCRIPTION: U/S ABD PARACENTESIS COMPLETED DATE/TIME: 12/17/2017 2:03 pm REASON FOR STUDY: ASCITES COMPARISON: CT of the abdomen dated 12/16/2017. LIMITATIONS: None. PROCEDURE: Procedure, risks, benefit, and alternative explained to patient who then gave written con sent. The right lower abdominal wall marked using ultrasound guidance. A time-out was called for co rrect marking verification. Abdomen prepped and draped using sterile technique. Local anesthesia ach ieved using 6 ml of 1% lidocaine injection. A 6fr Rdou-C-Lozibfri set was introduced into the perito everardo cavity. Fluid was drained. The catheter was removed and entry site was covered with sterile ba ndage. No immediate complications noted. Images acquired during the procedure were stored on PACS. FINDINGS: ENTRY SITE: Right lower quadrant FLUID VOLUME: 4000 cc FLUID ANALYSIS: Straw-colored OTHER: Fluid sent to the lab for testing. IMPRESSION: SUCCESSFUL ULTRASOUND GUIDED PARACENTESIS. COMMENT: Patient medication list reviewed:Yes- Quality ID# [id number]:Eligible professional attests to docu menting in the medical record they obtained, updated, or reviewed the patient's current medications. TECHNICAL DOCUMENTATION: JOB ID: [id number] [employer]- All Rights Reserved Reading location - IP/workstation name: [email or web address]
[2017-12-17] MEDS: MIDODRINE HCL 5 MG TABLET NG SCH ×2 (15:03→19:03)
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
[2017-12-17 20:13] VITALS: BP 104/53
[2017-12-18] MEDS ORDERED: ALBUMIN HUMAN 12.5 GM/50 ML RTUINJ IV SCH ×2 (10:00→18:00)
[2017-12-19] MEDS ORDERED: ALBUMIN HUMAN 12.5 GM/50 ML RTUINJ IV SCH ×2 (10:00→18:00)
[2017-12-20] MEDS ORDERED: ALBUMIN HUMAN 12.5 GM/50 ML RTUINJ IV SCH ×2 (10:00→18:00)
[2017-12-21] MEDS ORDERED: ALBUMIN HUMAN 12.5 GM/50 ML RTUINJ IV SCH ×2 (10:00→18:00)
[2017-12-22] MEDS ORDERED: ALBUMIN HUMAN 12.5 GM/50 ML RTUINJ IV SCH ×2 (10:00→18:00)
== END 2017-12-17 21:30 | disposition short-term general hospital (02) | DRG 432 ==
LOC: ER 11:02 → EH 14:07 → 4N 17:29 → 3N 12-16 20:58
PROVIDERS: ADMIT Emergency Medicine; ATTEND Emergency Medicine
PROC: 30233N1 Transfusion of Nonautologous Red Blood Cells into Peripheral Vein, Percutaneous Approach (ICD-10-PCS; 2017-12-15)
PROC: 0D9670Z Drainage of Stomach with Drainage Device, Via Natural or Artificial Opening (ICD-10-PCS; principal; 2017-12-16)
DX: K70.31 Alcoholic cirrhosis of liver with ascites (principal); K72.91 Hepatic failure, unspecified with coma; N17.9 Acute kidney failure, unspecified; Z68.1 Body mass index [BMI] 19.9 or less, adult; E87.1 Hypo-osmolality and hyponatremia; N39.0 Urinary tract infection, site not specified; D62 Acute posthemorrhagic anemia; R63.4 Abnormal weight loss; I50.814 Right heart failure due to left heart failure; I11.0 Hypertensive heart disease with heart failure; K21.9 Gastro-esophageal reflux disease without esophagitis; E88.09 Other disorders of plasma-protein metabolism, not elsewhere classified; D50.0 Iron deficiency anemia secondary to blood loss (chronic); E86.0 Dehydration; Z79.899 Other long term (current) drug therapy; Z90.49 Acquired absence of other specified parts of digestive tract; Z90.3 Acquired absence of stomach [part of]; Z87.891 Personal history of nicotine dependence; Z83.3 Family history of diabetes mellitus; Z80.9 Family history of malignant neoplasm, unspecified; Z82.49 Family history of ischemic heart disease and other diseases of the circulatory system
CPT/HCPCS: 36415; 36430; 49083; 70450; 74018; 74176; 80053; 80061; 81001; 82140; 82550; 82553; 82570; 82607; 82728; 82746; 83540; 83550; 83735; 83880; 84300; 84484; 85025; 85027; 85045; 85610; 85730; 86850; 86900; 86901; 86920; 87070; 87075; 87086; 87088; 87186; 87205; 93005; 93010; 93306; 99291; J0696; J2270; J2354; J3490; P9016; P9047